=== PATIENT | male | born 1950 | race Hispanic/Latino ===

== ENCOUNTER 2018-05-09 21:24 | Emergency (ER) | payer OTHER ==
[2018-05-09] MEDS ORDERED: NA CHLORIDE 0.9% 1,000 ML ONE (23:11)
[2018-05-09 23:29] LABS: Absolute Lymphocytes (CBC) 2.9 K/uL (0.7-4.9); Absolute Monocytes 2.1 K/uL (0.1-1.3); Absolute Neutrophil 13.5 K/uL (1.8-8.0); Basophils % 0.7 % (0-1.3); Eosinophils % 0.4 % (0-4.4); Hematocrit 34.6 % (39.6-49.0); Lymphocytes % 15.6 % (15.3-44.8); MPV 9.8 fL (7.6-11.3); Monocytes % 11.3 % (3.3-12.3); RBC Red Blood Cell Count 3.75 M/uL (4.33-5.43)
[2018-05-09 23:35] LABS: BUN Blood Urea Nitrogen 44 mg/dL (7-18); Bicarbonate 28 mmol/L (21-32); Glucose Level 348 mg/dL (74-106); Potassium 3.8 mmol/L (3.5-5.1); Sodium Level 135 mmol/L (136-145)
--- NOTE | 2018-05-10 00:50 | EDPHYS ---
Physician Documentation [facility] Name: Jorden Virk Age: 67 yrs Sex: Male : 1950 Arrival Date: 05/09/2018 Time: 21:47 Bed 15 Private MD: Mando Franklin ED Physician Fly Delgado HPI: 05/10 00:08 This 67 yrs old Male presents to ER via Ambulatory with complaints of Blood rn Pressure Problem, High Blood Sugar. 00:08 The patient or guardian reports hyperglycemia. Onset: The symptoms/episode rn began/occurred today. Associated signs and symptoms: Pertinent negatives:. Current symptoms: In the emergency department the patient's symptoms have improved. The patient has experienced similar episodes in the past. Reports seen by pcp today, given shots for "flu", reports 2 weeks of cough and generalized weakness, told one of the shots might cause high blood sugar, machine read high today, so came in for evaluation, reports blood sugar now coming down, takes insulin, and feels a little better. . Historical: - Allergies: 05/09 21:51 No Known Allergies; lp1 - PMHx: 21:51 Hypertension; Diabetes - NIDDM; lp1 - PSHx: 21:51 None; lp1 - Immunization history:: Adult Immunizations up to date. - Social history:: Smoking status: Patient/guardian denies using tobacco. - Ebola Screening: : No symptoms or risks identified at this time. - Family history:: not pertinent. - Hospitalizations: : No recent hospitalization is reported. ROS: 05/10 00:08 Constitutional: Negative for fever, chills, and weight loss, Eyes: Negative for injury, rn pain, redness, and discharge, Neck: Negative for injury, pain, and swelling, Cardiovascular: Negative for chest pain, palpitations, and edema, Respiratory: + cough Abdomen/GI: Negative for abdominal pain, nausea, vomiting, diarrhea, and constipation, MS/Extremity: Negative for injury and deformity, Skin: Negative for injury, rash, and discoloration, Neuro: + generalized weakness Exam: 00:08 Constitutional: This is a well developed, well nourished patient who is awake, alert, rn and in no acute distress. Head/Face: Normocephalic, atraumatic. Eyes: Pupils equal round and reactive to light, extra-ocular motions intact. Lids and lashes normal. Conjunctiva and sclera are non-icteric and not injected. Cornea within normal limits. Periorbital areas with no swelling, redness, or edema. ENT: dry MM, no stridor Cardiovascular: Regular rate and rhythm with a normal S1 and S2. No pulse deficits. Respiratory: Lungs have equal breath sounds bilaterally, clear to auscultation. No increased work of breathing, no retractions or nasal flaring. Abdomen/GI: soft, non-tender Skin: Warm, dry MS/ Extremity: Pulses equal, no cyanosis. Neurovascular intact. Full, normal range of motion. Equal circumference. Neuro: Awake and alert, GCS 15, oriented to person, place, time, and situation. Cranial nerves II-XII grossly intact. Motor strength 5/5 in all extremities. Sensory grossly intact. Cerebellar exam normal. Vital Signs: 05/09 21:50 BP 142 / 80; Pulse 96; Resp 18; Temp 98.7(O); Pulse Ox 98% on R/A; Weight 82.55 kg; lp1 Height 5 ft. 6 in. (167.64 cm); Pain 0/10; 23:29 BP 144 / 72; Pulse 81; Resp 15; Pulse Ox 99% on R/A; ao 21:50 Body Mass Index 29.38 (82.55 kg, 167.64 cm) lp1 MDM: 22:51 Patient medically screened. rn 05/10 00:46 Differential diagnosis: hyperglycemia. Data reviewed: vital signs, nurses notes, nitriles lab technician test result(s), radiologic studies, plain films, and as a result, I will discharge patient. Counseling: I had a detailed discussion with the patient and/or guardian regarding: the historical points, exam findings, and any diagnostic results supporting the discharge/admit diagnosis, lab results, radiology results, the need for outpatient follow up, to return to the emergency department if symptoms worsen or persist or if there are any questions or concerns that arise at home. Response to treatment: the patient's symptoms have markedly improved after treatment, and as a result, I will discharge patient. Special discussion: I discussed with the patient/guardian in detail that at this point there is no indication for admission to the hospital. It is understood, however, that if the symptoms persist or worsen the patient needs to return immediately for re-evaluation. ED course: Clear CXR, + hyperglycemia with dehydration, better after fluids, on insulin, neg ketones, will dc home as expected hyperglycemia after likely steroid shot, recommend pcp f/u. . 05/09 22:55 Order name: CBC with Diff; Complete Time: 23:43 rn 05/09 22:55 Order name: Basic Metabolic Panel; Complete Time: 23:55 rn 05/09 22:55 Order name: Ketone, Serum; Complete Time: 23:55 rn 05/09 23:43 Order name: XRAY Chest Pa And Lat (2 Views) rn 05/09 23:56 Order name: Flu; Complete Time: 00:58 rn 05/09 22:55 Order name: EKG; Complete Time: 22:56 rn 05/09 22:55 Order name: EKG - Nurse/Tech; Complete Time: 22:59 rn 05/09 22:55 Order name: IV Start; Complete Time: 23:13 rn 05/09 22:55 Order name: Glucose Level; Complete Time: 22:59 rn Administered Medications: 05/09 23:13 Drug: NS 0.9% 1000 ml Route: IV; Rate: 1000 ml; Site: right antecubital; ao Point of Care Testing: Blood Glucose: 22:49 Blood Glucose: 393 mg/dL; oe Ranges: Critical Glucose Levels:Adult <50 mg/dl or >400 mg/dl <40 mg/dl or >180 mg/dl Disposition: 05/10/18 00:47 Discharged to Home. Impression: Hyperglycemia, unspecified, Dehydration. - Condition is Stable. - Discharge Instructions: Dehydration, Adult, Hyperglycemia. - Medication Reconciliation Form, Thank You Letter, Antibiotic Education, Prescription Opioid Use form. - Follow up: Private Physician; When: 2 - 3 days; Reason: Recheck today's complaints, Re-evaluation by your physician. - Problem is new. - Symptoms have improved. Signatures: Dispatcher [employer] EDMS Fly Delgado MD MD rn Pena, Laura, RN RN lp1 Raheel Treadwell RN RN ao Corrections: (The following items were deleted from the chart) 05/10 01:14 00:47 05/10/2018 00:47 Discharged to Home. Impression: Hyperglycemia, unspecified; ao Dehydration. Condition is Stable. Forms are Medication Reconciliation Form, Thank You Letter, Antibiotic Education, Prescription Opioid Use. Follow up: Private Physician; When: 2 - 3 days; Reason: Recheck today's complaints, Re-evaluation by your physician. Problem is new. Symptoms have improved. rn
--- NOTE | 2018-05-10 00:50 | ER ---
Nurse's Notes [facility] Name: Jorden Virk Age: 67 yrs Sex: Male : 1950 Arrival Date: 05/09/2018 Time: 21:47 Bed 15 Private MD: Mando Franklin Diagnosis: Hyperglycemia, unspecified;Dehydration Presentation: 05/09 21:48 Presenting complaint: Patient states: States concerned about his blood pressure and lp1 blood sugar; Received 2 injections today by PCP for cold symptoms and told that they may make his blood pressure and blood sugar high; states checking his sugar about 1700 and machine read "high"; Symptoms have resolved, patient still concerned about blood sugar. Transition of care: patient was not received from another setting of care. Onset of symptoms was May 09, 2018 at 17:00. Risk Assessment: Do you want to hurt yourself or someone else? Patient reports no desire to harm self or others. Initial Sepsis Screen: Does the patient meet any 2 criteria? No. Patient's initial sepsis screen is negative. Does the patient have a suspected source of infection? No. Patient's initial sepsis screen is negative. Care prior to arrival: None. 21:48 Method Of Arrival: Ambulatory lp1 21:48 Acuity: KATELIN 3 lp1 Historical: - Allergies: 21:51 No Known Allergies; lp1 - PMHx: 21:51 Hypertension; Diabetes - NIDDM; lp1 - PSHx: 21:51 None; lp1 - Immunization history:: Adult Immunizations up to date. - Social history:: Smoking status: Patient/guardian denies using tobacco. - Ebola Screening: : No symptoms or risks identified at this time. - Family history:: not pertinent. - Hospitalizations: : No recent hospitalization is reported. Screenin:51 Abuse screen: Denies threats or abuse. Denies injuries from another. Nutritional lp1 screening: No deficits noted. Tuberculosis screening: No symptoms or risk factors identified. Fall Risk None identified. Assessment: 22:14 General: Appears in no apparent distress. comfortable, Behavior is calm, cooperative, ao appropriate for age. Pain: Denies pain. Neuro: Level of Consciousness is awake, alert, obeys commands, Oriented to person, place, time, situation, Moves all extremities. Full function Speech is normal, Facial symmetry appears normal, Pupils are PERRLA. Cardiovascular: Capillary refill < 3 seconds Pulses are all present. Respiratory: Airway is patent Respiratory effort is even, unlabored, Respiratory pattern is regular, symmetrical, Breath sounds are clear bilaterally. GI: Abdomen is obese. : No deficits noted. No signs and/or symptoms were reported regarding the genitourinary system. EENT: No deficits noted. No signs and/or symptoms were reported regarding the EENT system. Derm: Skin is intact, Skin is pink, warm \\T\\ dry. normal, Skin temperature is warm. Musculoskeletal: Circulation, motion, and sensation intact. Range of motion: intact in all extremities. 23:29 Reassessment: Patient appears in no apparent distress at this time. Patient and/or ao family updated on plan of care and expected duration. Pain level reassessed. Patient is alert, oriented x 3, equal unlabored respirations, skin warm/dry/pink. Given Toradol and Flexeril. 05/10 00:41 Reassessment: Patient appears in no apparent distress at this time. Patient and/or ao family updated on plan of care and expected duration. Pain level reassessed. Patient is alert, oriented x 3, equal unlabored respirations, skin warm/dry/pink. Waiting on dispo orders. Vital Signs: 05/09 21:50 BP 142 / 80; Pulse 96; Resp 18; Temp 98.7(O); Pulse Ox 98% on R/A; Weight 82.55 kg; lp1 Height 5 ft. 6 in. (167.64 cm); Pain 0/10; 23:29 BP 144 / 72; Pulse 81; Resp 15; Pulse Ox 99% on R/A; ao 21:50 Body Mass Index 29.38 (82.55 kg, 167.64 cm) lp1 ED Course: 21:47 Patient arrived in ED. es 21:48 Alfredo Cole MD is Private Physician. es 21:49 Mando Franklin MD is Private Physician. es 21:50 Triage completed. lp1 21:51 Arm band placed on left wrist. lp1 22:14 Raheel Treadwell, RN is Primary Nurse. ao 22:15 Patient has correct armband on for positive identification. induction heating equipment setter on. Pulse ao ox on. NIBP on. 22:51 Fly Delgado MD is Attending Physician. rn 23:14 Inserted saline lock: 20 gauge in right antecubital area, using aseptic technique. ao Blood collected. 05/10 00:12 Patient moved to radiology via wheelchair. kw 00:12 X-ray completed. Patient tolerated procedure well. kw 00:12 Patient moved back from radiology. kw 00:39 XRAY Chest Pa And Lat (2 Views) In Process Unspecified. EDMS 01:13 No provider procedures requiring assistance completed. IV discontinued, intact, ao bleeding controlled, No redness/swelling at site. Pressure dressing applied. Administered Medications: 05/09 23:13 Drug: NS 0.9% 1000 ml Route: IV; Rate: 1000 ml; Site: right antecubital; ao Point of Care Testing: Blood Glucose: 22:49 Blood Glucose: 393 mg/dL; oe Ranges: Outcome: 05/10 00:47 Discharge ordered by . rn 01:14 Discharged to home ambulatory. ao 01:14 Condition: good 01:14 Discharge instructions given to patient, Instructed on discharge instructions, follow up and referral plans. the need for admit, Demonstrated understanding of instructions, follow-up care, medications. 01:14 Patient left the ED. ao Signatures: Dispatcher [employer] EDMS Sade Haynes Roman, MD MD rn Whitley, Kimberlee kw Pena, Laura, RN RN lp1 Raheel Treadwell RN RN ao Deandre Jeff oe
[2018-05-10 02:58] VITALS: TEMP 98.7
[2018-05-10 02:59] VITALS: BP 144/72; O2SAT 99
--- NOTE | 2018-05-10 07:47 | EKG ---
Test Date: 2018-05-09 Test Time: 22:24:18 Gun Fertilizer: GINA MEASUREMENT RESULTS: Intervals: Rate: 84 WI: 156 QRSD: 90 QT: 362 QTc: 427 Harper: P: 28 WI: 156 QRS: 4 T: 35 INTERPRETIVE STATEMENTS: Normal sinus rhythm Normal ECG Compared to ECG 08/06/2007 06:50:34 Sinus bradycardia no longer present Electronically Signed On 05-10-18 07:45:51 DIESEL ROLLER OPERATOR by Mehdi Miller
--- NOTE | 2018-05-10 13:03 | RAD REPORT ---
EXAM DESCRIPTION: RAD - Chest Pa And Lat (2 Views) - 05/10/2018 12:32 am CLINICAL HISTORY: 67 years Male, COUGH COMPARISON: None. FINDINGS: No lung consolidation. No pleural effusion. No pneumothorax. Cardiac and mediastinal silhouette is unremarkable. No acute osseous abnormality. IMPRESSION: No acute cardiopulmonary disease. Electronically signed by Nicola Gilbert DO 05/10/2018 12:34 AM EXECUTOR OF ESTATE Due to temporary technical issues with the PACS/Fluency reporting system, reports are being signed by the in house radiologist as a courtesy to ensure prompt reporting. The interpreting radiologist is f ully responsible for the content of the report.
== END 2018-05-10 01:14 | disposition home or self-care (01) ==
LOC: ER 21:24
DX: E11.65 Type 2 diabetes mellitus with hyperglycemia (principal); E86.0 Dehydration; I10 Essential (primary) hypertension
CPT/HCPCS: 36415; 71046; 80048; 82010; 82962; 85025; 87804; 93005; 99284; J7030

== ENCOUNTER 2020-12-12 12:35 | Emergency (ER) | payer OTHER ==
--- NOTE | 2020-12-12 13:18 | RAD REPORT ---
EXAM DESCRIPTION: CT - Head Brain Wo Cont - 12/12/2020 1:08 pm CLINICAL HISTORY: high blood pressure COMPARISON: No comparisons TECHNIQUE: All CT scans are performed using dose optimization technique as appropriate and may inclu de automated exposure control or mA/KV adjustment according to patient size. FINDINGS: No intracranial hemorrhage, hydrocephalus or extra-axial fluid collection.No areas of brai n edema or evidence of midline shift. The paranasal sinuses and mastoids are clear. The calvarium is intact. IMPRESSION: No acute intracranial abnormality.
[2020-12-12 14:05] LABS: Absolute Lymphocytes (CBC) 2.8 K/uL (0.7-4.9); Basophils % 1.1 % (0-1.3); RBC Red Blood Cell Count 3.92 M/uL (4.33-5.43)
[2020-12-12 14:11] LABS: Protime INR 1.03
--- NOTE | 2020-12-12 14:19 | RAD REPORT ---
EXAM DESCRIPTION: RAD - Chest Single View - 12/12/2020 2:13 pm CLINICAL HISTORY: blood pressure COMPARISON: Chest Pa And Lat (2 Views) dated 08/17/2019; Chest Pa And Lat (2 Views) dated 05/10/2018; CHEST SINGLE VIEW dated 08/05/2007 FINDINGS: Lines: None. Lungs: No evidence of edema or pneumonia. Pleural: No significant pleural effusions or pneumothorax. Cardiac: The heart size is within normal limits. Bones: No acute fractures. Other: IMPRESSION: No acute cardiopulmonary disease.
[2020-12-12 14:26] LABS: ALT/SGPT 23 U/L (12-78); AST/SGOT 18 U/L (15-37); Albumin 3.4 g/dL (3.4-5.0); Alkaline Phosphatase 86 U/L (45-117); BUN Blood Urea Nitrogen 39 mg/dL (7-18); Bicarbonate 24 mmol/L (21-32); Bilirubin Direct < 0.1 mg/dL (0-0.2); Bilirubin Total 0.4 mg/dL (0.2-1.0); Glucose Level 350 mg/dL (74-106); NT PRO-BNP 310 pg/mL (<125); Potassium 4.3 mmol/L (3.5-5.1); Protein, Total 7.6 g/dL (6.4-8.2); Sodium Level 140 mmol/L (136-145); Troponin (Emerg Dept Use Only) < 0.02 ng/mL (0.0-0.045)
--- NOTE | 2020-12-12 17:58 | ER ---
Nurse's Notes [facility] Name: Jorden Virk Age: 70 yrs Sex: Male : 1950 Arrival Date: 12/12/2020 Time: 12:39 Bed 23 Private MD: Diagnosis: Essential (primary) hypertension;Hyperglycemia, unspecified;Headache Presentation: 12/12 12:47 Chief complaint: Patient states: when he took his blood pressure this morning the top ap3 number was over 200. he took his bp medications and the top number went down to 180, but upon recheck it went back over 200. patient states he has a headache and numbness on his left arm. All this started when he woke up this morning. Last known normal was last night before bed. Coronavirus screen: At this time, the client does not indicate any symptoms associated with coronavirus-19. Ebola Screen: No symptoms or risks identified at this time. Initial Sepsis Screen: Does the patient meet any 2 criteria? No. Patient's initial sepsis screen is negative. Does the patient have a suspected source of infection? No. Patient's initial sepsis screen is negative. Risk Assessment: Do you want to hurt yourself or someone else? Patient reports no desire to harm self or others. Onset of symptoms was December 12, 2020. 12:47 Method Of Arrival: Ambulatory ap3 12:47 Acuity: KATELIN 2 ap3 Triage Assessment: 12:53 General: Appears in no apparent distress. comfortable, Behavior is calm, cooperative, ap3 appropriate for age. Pain: Denies pain. Neuro: Level of Consciousness is awake, alert, obeys commands, Oriented to person, place, time, situation, Appropriate for age Gait is steady, Speech is normal, Facial symmetry appears normal. Cardiovascular: No deficits noted. Respiratory: Airway is patent Respiratory effort is even, unlabored, Respiratory pattern is regular, symmetrical. Historical: - Allergies: 12:51 No Known Allergies; ap3 - Home Meds: 12:51 hydrochlorothiazide 25 mg Oral tab 1 tab once daily [Active]; losartan 100 mg oral tab ap3 1 tab once daily [Active]; - PMHx: 12:51 Hypertension; Diabetes - NIDDM; ap3 - PSHx: 12:51 None; ap3 - Immunization history:: Client reports receiving the Curtis \T\ Curtis single-dose vaccine. Date received May 2020. - Social history:: Smoking status: Patient denies any tobacco usage or history of. Patient/guardian denies using alcohol, street drugs. Screenin:52 Abuse screen: Denies threats or abuse. Nutritional screening: No deficits noted. ap3 Tuberculosis screening: No symptoms or risk factors identified. 14:00 Fall Risk None identified. aj2 Assessment: 14:00 General: Appears in no apparent distress. comfortable, obese, Behavior is calm, aj2 cooperative. Pain: Denies pain. Cardiovascular: No deficits noted. Rhythm is sinus bradycardia. 14:00 Respiratory: Airway is patent. aj2 16:25 Reassessment: Patient appears in no apparent distress at this time. Patient and/or ss family updated on plan of care and expected duration. Pain level reassessed. Patient is alert, oriented x 3, equal unlabored respirations, skin warm/dry/pink. Patient denies pain at this time. Vital Signs: 12:47 BP 187 / 75; Pulse 58; Resp 17; Temp 98.1; Pulse Ox 100% on R/A; Weight 79.38 kg; ap3 Height 5 ft. 6 in. (167.64 cm); Pain 0/10; 14:00 BP 173 / 74; Pulse 56; Resp 18; Temp 97.9; Pulse Ox 100% on R/A; aj2 16:25 BP 175 / 76; Pulse 52; Resp 18; Temp 97.9; Pulse Ox 100% ; ss 12:47 Body Mass Index 28.25 (79.38 kg, 167.64 cm) ap3 Vitals: 16:25 Cardiac Rhythm Assessment Sinus shante. ss ED Course: 12:39 Patient arrived in ED. ds1 12:51 Triage completed. ap3 13:00 Corey Alcantara is Primary Nurse. aj2 13:07 Tom Campos MD is Attending Physician. kdr 13:08 Head Brain Wo Cont CT In Process Unspecified. EDMS 13:56 Basic Metabolic Panel Sent. dh4 13:57 Basic Metabolic Panel Sent. dh4 13:57 CBC with Diff Sent. dh4 13:57 Magnesium Sent. dh4 13:57 LFT's Sent. dh4 13:57 NT PRO-BNP Sent. dh4 13:57 PT-INR Sent. dh4 13:57 Troponin (emerg Dept Use Only) Sent. dh4 14:00 No apparent distress. Resting quietly. aj2 14:00 No provider procedures requiring assistance completed. Inserted saline lock: 20 gauge aj2 in right antecubital area, using aseptic technique. 14:00 Patient has correct armband on for positive identification. aj2 14:13 XRAY Chest (1 view) In Process Unspecified. EDMS 16:25 No apparent distress. Resting quietly. ss 16:25 IV is patent, is intact. ss 18:44 IV discontinued, intact, bleeding controlled, No redness/swelling at site. Pressure ap3 dressing applied. 18:44 Arm band placed on. ap3 Administered Medications: No medications were administered Outcome: 17:58 Discharge ordered by . kdr 18:44 Discharged to home ambulatory, with family. ap3 18:44 Condition: good 18:44 Discharge instructions given to patient, Instructed on discharge instructions, follow up and referral plans. Demonstrated understanding of instructions, follow-up care. 18:44 Patient left the ED. ap3 Signatures: Dispatcher [employer] EDDE Tom Campos MD MD [facility] Maddy De La Rosa ds1 Pastora Marie RN RN Esther Pena RN RN ap3 Tha Hurley [facility] Corey Alcantara [facility]
--- NOTE | 2020-12-12 17:59 | EDPHYS ---
Physician Documentation [facility] Name: Jorden Virk Age: 70 yrs Sex: Male : 1950 Arrival Date: 12/12/2020 Time: 12:39 Bed 23 Private MD: ED Physician Tom Campos HPI: 12/12 20:19 This 70 yrs old Male presents to ER via Ambulatory with complaints of High kdr Blood Pressure. 20:19 The patient has elevated blood pressure and discovered this at home, with a home kdr device. Onset: The symptoms/episode began/occurred this morning. Modifying factors: The symptoms are aggravated by Nothing, The symptoms are alleviated by Patient took his blood pressure medications this morning and had some transient relief but then the pressure went back up to a systolic of greater than 200. Associated signs and symptoms: Pertinent positives: Patient has slight headache and left arm numbness that was very light. Severity of symptoms: At its worst the blood pressure was severe, 200 mm Hg. The patient has not experienced similar symptoms in the past. The patient has not recently seen a physician. Historical: - Allergies: 12:51 No Known Allergies; ap3 - Home Meds: 12:51 hydrochlorothiazide 25 mg Oral tab 1 tab once daily [Active]; losartan 100 mg oral tab ap3 1 tab once daily [Active]; - PMHx: 12:51 Hypertension; Diabetes - NIDDM; ap3 - PSHx: 12:51 None; ap3 - Immunization history:: Client reports receiving the Curtis \T\ Curtis single-dose vaccine. Date received May 2020. - Social history:: Smoking status: Patient denies any tobacco usage or history of. Patient/guardian denies using alcohol, street drugs. ROS: 20:19 Constitutional: Negative for fever, chills, and weight loss, Eyes: Negative for injury, kdr pain, redness, and discharge, ENT: Negative for injury, pain, and discharge, Neck: Negative for injury, pain, and swelling, Cardiovascular: Negative for chest pain, palpitations, and edema, Respiratory: Negative for shortness of breath, cough, wheezing, and pleuritic chest pain, Abdomen/GI: Negative for abdominal pain, nausea, vomiting, diarrhea, and constipation, Back: Negative for injury and pain, : Negative for injury, bleeding, discharge, and swelling, MS/Extremity: Negative for injury and deformity, Skin: Negative for injury, rash, and discoloration, Psych: Negative for depression, anxiety, suicide ideation, homicidal ideation, and hallucinations, Allergy/Immunology: Negative for hives, rash, and allergies, Endocrine: Negative for neck swelling, polydipsia, polyuria, polyphagia, and marked weight changes, Hematologic/Lymphatic: Negative for swollen nodes, abnormal bleeding, and unusual bruising. 20:19 Neuro: Positive for Headache and slight numbness to the left upper extremity. Exam: 20:19 Constitutional: This is a well developed, well nourished patient who is awake, alert, kdr and in no acute distress. Head/Face: Normocephalic, atraumatic. Eyes: Pupils equal round and reactive to light, extra-ocular motions intact. Lids and lashes normal. Conjunctiva and sclera are non-icteric and not injected. Cornea within normal limits. Periorbital areas with no swelling, redness, or edema. Neck: Trachea midline, no thyromegaly or masses palpated, and no cervical lymphadenopathy. Supple, full range of motion without nuchal rigidity, or vertebral point tenderness. No Meningismus. Chest/axilla: Normal chest wall appearance and motion. Nontender with no deformity. No lesions are appreciated. Cardiovascular: Regular rate and rhythm with a normal S1 and S2. No gallops, murmurs, or rubs. Normal PMI, no JVD. No pulse deficits. Respiratory: Lungs have equal breath sounds bilaterally, clear to auscultation and percussion. No rales, rhonchi or wheezes noted. No increased work of breathing, no retractions or nasal flaring. Abdomen/GI: Soft, non-tender, with normal bowel sounds. No distension or tympany. No guarding or rebound. No evidence of tenderness throughout. Back: No spinal tenderness. No costovertebral tenderness. Full range of motion. Skin: Warm, dry with normal turgor. Normal color with no rashes, no lesions, and no evidence of cellulitis. MS/ Extremity: Pulses equal, no cyanosis. Neurovascular intact. Full, normal range of motion. Neuro: Awake and alert, GCS 15, oriented to person, place, time, and situation. Cranial nerves II-XII grossly intact. Motor strength 5/5 in all extremities. Sensory grossly intact. Cerebellar exam normal. Normal gait. Psych: Awake, alert, with orientation to person, place and time. Behavior, mood, and affect are within normal limits. Vital Signs: 12:47 BP 187 / 75; Pulse 58; Resp 17; Temp 98.1; Pulse Ox 100% on R/A; Weight 79.38 kg; ap3 Height 5 ft. 6 in. (167.64 cm); Pain 0/10; 14:00 BP 173 / 74; Pulse 56; Resp 18; Temp 97.9; Pulse Ox 100% on R/A; aj2 16:25 BP 175 / 76; Pulse 52; Resp 18; Temp 97.9; Pulse Ox 100% ; ss 12:47 Body Mass Index 28.25 (79.38 kg, 167.64 cm) ap3 MDM: 17:58 Patient medically screened. kdr 20:21 Data reviewed: vital signs, nurses notes, lab test result(s), radiologic studies. kdr Counseling: I had a detailed discussion with the patient and/or guardian regarding: the historical points, exam findings, and any diagnostic results supporting the discharge/admit diagnosis, lab results, radiology results, the need for outpatient follow up. 20:21 ED course: Patient tolerated the interventions well was happy with the care provided kdr and the plan for discharge and follow-up.. 12/12 12:58 Order name: Basic Metabolic Panel ap3 12/12 12:58 Order name: CBC with Diff; Complete Time: 15:19 ap3 12/12 12:58 Order name: LFT's; Complete Time: 15:19 ap3 12/12 12:58 Order name: Magnesium; Complete Time: 15:19 ap3 12/12 12:58 Order name: NT PRO-BNP; Complete Time: 15:19 ap3 12/12 12:58 Order name: PT-INR; Complete Time: 15:19 ap3 12/12 12:58 Order name: Troponin (emerg Dept Use Only); Complete Time: 15:19 ap3 12/12 12:58 Order name: XRAY Chest (1 view); Complete Time: 15:19 ap3 12/12 12:58 Order name: EKG; Complete Time: 12:58 ap3 12/12 12:58 Order name: Cardiac monitoring; Complete Time: 13:53 ap3 12/12 12:58 Order name: EKG - Nurse/Tech; Complete Time: 13:53 ap3 12/12 12:58 Order name: Basic Metabolic Panel; Complete Time: 15:19 EDMS 12/12 12:59 Order name: Head Brain Wo Cont CT; Complete Time: 13:44 ap3 12/12 12:58 Order name: IV Saline Lock; Complete Time: 13:53 ap3 12/12 12:58 Order name: Labs collected and sent; Complete Time: 13:53 ap3 12/12 12:58 Order name: O2 Per Protocol; Complete Time: 13:57 ap3 12/12 12:58 Order name: O2 Sat Monitoring; Complete Time: 13:57 ap3 Administered Medications: No medications were administered Disposition Summary: 12/12/20 17:58 Discharge Ordered Location: Home kdr Problem: an acute exacerbation kdr Symptoms: have improved kdr Condition: Stable kdr Diagnosis - Essential (primary) hypertension kdr - Hyperglycemia, unspecified kdr - Headache kdr Followup: kdr - With: Private Physician - When: 2 - 3 days - Reason: If symptoms return, Further diagnostic work-up, Recheck today's complaints, Continuance of care, Re-evaluation by your physician Discharge Instructions: - Discharge Summary Sheet kdr - General Headache Without Cause kdr - Hypertension, Adult, [id number] kdr - Blood Glucose Monitoring, Adult kdr - How to Take Your Blood Pressure, Algr-sa-Bdva kdr - Hyperglycemia, Srdg-[id number]-Lthd kdr Forms: - Medication Reconciliation Form kdr - Thank You Letter kdr Signatures: Dispatcher [employer] EDMS Tom Campos MD MD kdr Esther Pena RN RN ap3 Corrections: (The following items were deleted from the chart) 13:10 12:58 Head Angio+CT.RAD.BRZ ordered. EDMS EDMS
[2020-12-12 18:58] VITALS: O2SAT 100
[2020-12-12 19:00] VITALS: TEMP 97.9
[2020-12-12 19:01] VITALS: BP 175/76
== END 2020-12-12 18:44 | disposition home or self-care (01) ==
LOC: ER 12:35
DX: I10 Essential (primary) hypertension (principal); E11.65 Type 2 diabetes mellitus with hyperglycemia
CPT/HCPCS: 36415; 70450; 71045; 80048; 80076; 83735; 83880; 84484; 85025; 85610; 93005; 99284

== ENCOUNTER 2021-10-07 15:44 | Inpatient (IN) | payer OTHER ==
[2021-10-07 16:37] LABS: Absolute Lymphocytes (CBC) 3.6 K/uL (0.7-4.9); Hematocrit 29.4 % (39.6-49.0); Lymphocytes % 15.6 % (15.3-44.8); MCV 93.2 fL (80-100); MPV 9.8 fL (7.6-11.3); RBC Red Blood Cell Count 3.16 M/uL (4.33-5.43)
[2021-10-07 16:57] LABS: Magnesium 2.4 mg/dL (1.8-2.4); Potassium 4.9 mmol/L (3.5-5.1); Troponin High Sensitivity 50.2 pg/mL (<58.9)
--- NOTE | 2021-10-07 17:48 | RAD REPORT ---
EXAM DESCRIPTION: RAD - Chest Single View - 10/07/2021 5:36 pm CLINICAL HISTORY: SOB COMPARISON: Chest Single View dated 12/12/2020; Chest Pa And Lat (2 Views) dated 08/17/2019; Chest Pa And Lat (2 Views) dated 05/10/2018; CHEST SINGLE VIEW dated 08/05/2007 FINDINGS: Lines: Cardiomegaly. Lungs: Increased prominence of the pulmonary interstitium. Pleural: Small left effusion is likely present. Cardiac: The heart size is within normal limits. Bones: No acute fractures. Other: IMPRESSION: Findings most consistent with interstitial edema though multifocal pneumonia could appea r similar. .
--- NOTE | 2021-10-07 18:24 | ER ---
Nurse's Notes [facility] Name: Jorden Virk Age: 71 yrs Sex: Male : 1950 Arrival Date: 10/07/2021 Time: 15:46 Bed 20 Private MD: Tara Smith Diagnosis: Pneumonia, unspecified organism;Sepsis, unspecified organism;Unspecified combined systolic (congestive) and diastolic (congestive) heart failure;Acute on chronic renal failure;Elevated white blood cell count Presentation: 10/07 15:56 Chief complaint: Patient states: Pt reports bilateral feet swelling x5 days with jh6 increasing SOB, chills and dry cough x2 days. Coronavirus screen: Vaccine status: Patient reports receiving the 2nd dose of the covid vaccine. Client denies travel out of the [place] in the last 14 days. chills, cough unrelated to allergies, difficulty breathing, fatigue. Ebola Screen: Patient negative for fever greater than or equal to 101.5 degrees Fahrenheit, and additional compatible Ebola Virus Disease symptoms Patient denies exposure to infectious person. Patient denies travel to an Ebola-affected area in the 21 days before illness onset. Initial Sepsis Screen: Does the patient meet any 2 criteria? No. Patient's initial sepsis screen is negative. Does the patient have a suspected source of infection? No. Patient's initial sepsis screen is negative. Risk Assessment: Do you want to hurt yourself or someone else? Patient reports no desire to harm self or others. Onset of symptoms was October 02, 2021. 15:56 Method Of Arrival: Ambulatory [facility] 15:56 Acuity: KATELIN 2 6 Triage Assessment: 16:04 General: Appears in no apparent distress. well groomed, Behavior is calm, cooperative. 6 Pain: Denies pain. Respiratory: Reports shortness of breath cough that is dry, Onset: The symptoms/episode began/occurred x2 days, worse today, the patient has moderate shortness of breath. Historical: - Allergies: 16:04 No Known Allergies; jh6 - PMHx: 16:04 Hypercholesterolemia; Hypertension; Diabetes mellitus; 6 - Immunization history:: Adult Immunizations up to date, Client reports receiving the 2nd dose of the Covid vaccine. - Social history:: Smoking status: Patient denies any tobacco usage or history of. Screenin:34 Abuse screen: Denies threats or abuse. Nutritional screening: No deficits noted. jd3 Tuberculosis screening: No symptoms or risk factors identified. Fall Risk Ambulatory Aid- None/Bed Rest/Nurse Assist (0 pts). Gait- Normal/Bed Rest/Wheelchair (0 pts) Mental Status- Oriented to own ability (0 pts). Total Redd Fall Scale indicates No Risk (0-24 pts). Assessment: 16:31 General: Appears in no apparent distress. comfortable, Behavior is calm, cooperative, jd3 appropriate for age. Pain: Denies pain. Neuro: Jimenez Agitation-Sedation Scale (RASS): 0 - Alert and Calm Level of Consciousness is awake, alert, obeys commands, Oriented to person, place, time, situation. Cardiovascular: Heart tones present Capillary refill < 3 seconds Patient's skin is warm and dry. Rhythm is regular. Respiratory: Reports shortness of breath on exertion Airway is patent Respiratory effort is even, unlabored, Respiratory pattern is regular, symmetrical, Breath sounds are clear bilaterally. the patient has mild shortness of breath Denies cough. GI: No signs and/or symptoms were reported involving the gastrointestinal system. : No signs and/or symptoms were reported regarding the genitourinary system. EENT: No signs and/or symptoms were reported regarding the EENT system. Derm: Skin is intact, Skin is dry, Skin is normal, Skin temperature is warm. Musculoskeletal: Circulation, motion, and sensation intact. Range of motion: intact in all extremities. 17:59 Reassessment: Patient appears in no apparent distress at this time. No changes from jd3 previously documented assessment. Patient and/or family updated on plan of care and expected duration. Pain level reassessed. Patient is alert, oriented x 3, equal unlabored respirations, skin warm/dry/pink. 19:20 General: Appears in no apparent distress. Behavior is cooperative. Neuro: Level of sm5 Consciousness is awake, alert, obeys commands, Oriented to person, place, time, situation. Cardiovascular: Capillary refill < 3 seconds Patient's skin is warm and dry. Respiratory: Airway is patent Trachea midline Respiratory effort is even, labored. Vital Signs: 15:56 BP 141 / 63; Pulse 65; Resp 22; Temp 99.3; Pulse Ox 90% ; Weight 88.45 kg; Height 5 ft. jh6 6 in. (167.64 cm); Pain 0/10; 16:34 BP 135 / 65; Pulse 67; Resp 21; Pulse Ox 96% on 2 lpm NC; jd3 18:00 BP 131 / 62; Pulse 65; Resp 20; Pulse Ox 95% on 2 lpm NC; jd3 21:58 BP 143 / 65; Pulse 75; Resp 27; Pulse Ox 94% on 2 lpm NC; sm5 15:56 Body Mass Index 31.47 (88.45 kg, 167.64 cm) [facility] ED Course: 15:46 Patient arrived in ED. mr 15:47 Tara Smith MD is Private Physician. mr 15:56 Lolly Dong FNP-C [facility]. kb 15:56 Bayron Manzano DO is Attending Physician. kb 16:02 Triage completed. [facility] 16:06 Arm band placed on right wrist. Patient placed in an exam room, on a stretcher, Patient [facility] Provider in triage to assess pt. 16:12 Zion Knott RN is Primary Nurse. jd3 16:21 Basic Metabolic Panel Sent. mb7 16:21 CBC with Diff Sent. mb7 16:22 Client placed on continuous cardiac and pulse oximetry monitoring. NIBP monitoring mb7 applied. monitoring coordinator on. Pulse ox on. 16:22 Magnesium Sent. mb7 16:22 NT PRO-BNP Sent. mb7 16:22 Troponin HS Sent. mb7 16:22 EKG done, by ED staff, reviewed by Lolly ELLIOTT. mb7 16:22 Inserted saline lock: 20 gauge in right antecubital area, using aseptic technique. mb7 Blood collected. 16:35 Patient has correct armband on for positive identification. Placed in gown. Bed in low jd3 position. Call light in reach. Side rails up X2. Adult w/ patient. 17:37 XRAY Chest (1 view) In Process Unspecified. EDMS 18:23 Ralf Oakes MD is Hospitalizing Provider. kb 18:40 First set of blood cultures drawn Drawn on Right Hand. jw7 18:55 Second set of blood cultures drawn Drawn on left hand. jw7 19:04 Blood Culture Adult (2) Sent. jw7 19:05 Lactate Sent. jw7 19:10 Primary Nurse role handed off by Zion Knott, JOSE mw2 20:08 Janey Sheriff, RN is Primary Nurse. [facility] 22:37 No provider procedures requiring assistance completed. Patient admitted, IV remains in [address] Administered Medications: 19:09 Drug: Rocephin (cefTRIAXone) 1 grams Route: IV; Rate: calculated rate; Site: right jd3 antecubital; 19:25 Follow up: Response: No adverse reaction; IV Status: Completed infusion; IV Intake: [id number] 19:09 Drug: Zithromax (azithromycin) 500 mg Route: IVPB; Infused Over: 1 hrs; Site: right jd3 antecubital; 20:10 Follow up: Response: No adverse reaction; IV Status: Completed infusion; IV Intake: sm5 250ml Medication: 16:34 VIS not applicable for this client. jd3 Intake: 19:25 IV: 50ml; Total: 50ml. 5 20:10 IV: 250ml; Total: 300ml. [facility] Outcome: 18:23 Decision to Hospitalize by Provider. kb 22:37 Admitted to Med/surg accompanied by tech, via stretcher, with oxygen, with chart, [facility] Report called to JOSE Fay 22:37 Condition: stable 22:37 Instructed on the need for admit. 22:39 Patient left the ED. [facility] Signatures: Dispatcher [employer] EDMS Lolly Dong, LEXI VELIZ-Deborah Kurtz Zion Knott RN RN jd3 [place], MyKena mw2 Lilli Gutierrez RN RN Deborah Morton Janey Flynn RN RN [facility] Rosalie Li [facility] Corrections: (The following items were deleted from the chart) 16:05 16:04 PMHx: Diabetes - NIDDM; Troy Troy 19:04 18:40 First set of blood cultures drawn by sarah martin 22:08 21:58 BP 143 / 65; Pulse 75bpm; Resp 27bpm; Pulse Ox 91% 2 lpm Nasal Cannula; [place] [id number]
--- NOTE | 2021-10-07 18:24 | EDPHYS ---
Physician Documentation [facility] Name: Jorden Virk Age: 71 yrs Sex: Male : 1950 Arrival Date: 10/07/2021 Time: 15:46 Bed 20 Private MD: Tara Smith ED Physician Bayron Manzano HPI: 10/07 21:59 This 71 yrs old Male presents to ER via Ambulatory with complaints of kb Shortness Of Breath, Feet Swelling, High Blood Sugar. 19:19 Patient reports bilateral lower extremity swelling for 5 days. Reports shortness of kb breath that has been increasingly getting worse. Shortness of breath started with exertion only and is now at rest as well.. 21:59 The patient has shortness of breath at rest. Onset: The symptoms/episode began/occurred kb 5 day(s) ago. Duration: The symptoms are continuous. The patient's shortness of breath is aggravated by exertion, is alleviated by nothing. Associated signs and symptoms: Pertinent positives: lower extremity edema. Severity of symptoms: At their worst the symptoms were moderate in the emergency department the symptoms are unchanged. The patient has not experienced similar symptoms in the past. The patient has not recently seen a physician. Historical: - Allergies: 16:04 No Known Allergies; jh6 - PMHx: 16:04 Hypercholesterolemia; Hypertension; Diabetes mellitus; jh6 - Immunization history:: Adult Immunizations up to date, Client reports receiving the 2nd dose of the Covid vaccine. - Social history:: Smoking status: Patient denies any tobacco usage or history of. ROS: 21:59 Constitutional: Negative for fever, chills, and weight loss. kb 21:59 Cardiovascular: Positive for edema, Negative for chest pain. 21:59 Respiratory: Positive for cough, dyspnea on exertion, shortness of breath, Negative for hemoptysis, orthopnea, pleurisy, sputum production, wheezing. 21:59 All other systems are negative. Exam: 21:59 Constitutional: This is a well developed, well nourished patient who is awake, alert, kb and in no acute distress. Head/Face: Normocephalic, atraumatic. ENT: Moist Mucous membranes Cardiovascular: Regular rate and rhythm with a normal S1 and S2. No gallops, murmurs, or rubs. No pulse deficits. Respiratory: Respirations even and unlabored. No increased work of breathing. Talking in full sentences Skin: Warm, dry with normal turgor. Normal color. MS/ Extremity: Pulses equal, no cyanosis. Neurovascular intact. Full, normal range of motion. Neuro: Awake and alert, GCS 15, oriented to person, place, time, and situation. Moves all extremities. Normal gait. Psych: Awake, alert, with orientation to person, place and time. Behavior, mood, and affect are within normal limits. 21:59 Cardiovascular: Edema: 1+ edema to level of left ankle and right ankle. 21:59 ECG was reviewed by the Attending Physician. Vital Signs: 15:56 BP 141 / 63; Pulse 65; Resp 22; Temp 99.3; Pulse Ox 90% ; Weight 88.45 kg; Height 5 ft. jh6 6 in. (167.64 cm); Pain 0/10; 16:34 BP 135 / 65; Pulse 67; Resp 21; Pulse Ox 96% on 2 lpm NC; jd3 18:00 BP 131 / 62; Pulse 65; Resp 20; Pulse Ox 95% on 2 lpm NC; jd3 21:58 BP 143 / 65; Pulse 75; Resp 27; Pulse Ox 94% on 2 lpm NC; sm5 15:56 Body Mass Index 31.47 (88.45 kg, 167.64 cm) 6 MDM: 15:56 Patient medically screened. kb 16:57 ED course: Severe sepsis identified after BMP resulted. . kb 18:28 Data reviewed: vital signs, nurses notes. Data interpreted: Pulse oximetry: on room air kb is 95 %. Interpretation: normal. Counseling: I had a detailed discussion with the patient and/or guardian regarding: the historical points, exam findings, and any diagnostic results supporting the discharge/admit diagnosis, lab results, radiology results, the need for further work-up and treatment in the hospital. Physician consultation: Rudolph ELLIOTT was contacted at 18:29, regarding admission, to the telemetry unit. and will see patient in ED, immediately. 10/07 15:57 Order name: Basic Metabolic Panel; Complete Time: 16:57 kb 10/07 15:57 Order name: CBC with Diff; Complete Time: 18:45 kb 10/07 15:57 Order name: Magnesium; Complete Time: 16:57 kb 10/07 15:57 Order name: NT PRO-BNP; Complete Time: 16:57 kb 10/07 15:57 Order name: Troponin HS; Complete Time: 16:57 kb 10/07 16:01 Order name: COVID-19 SARS RT PCR (Document "Date of Onset" if Symptomatic); Complete kb Time: 17:42 10/07 18:14 Order name: Blood Culture Adult (2) kb 10/07 18:14 Order name: Lactate; Complete Time: 19:19 kb 10/07 18:17 Order name: CMP; Complete Time: 19:16 kb 10/07 18:17 Order name: Protime (+inr); Complete Time: 19:04 kb 10/07 18:17 Order name: Ptt, Activated; Complete Time: 19:04 kb 10/07 18:22 Order name: Flu; Complete Time: 21:22 la1 10/07 18:43 Order name: Manual Differential; Complete Time: 18:45 EDMS 10/07 19:24 Order name: Urine Microscopic Only la10/07 15:57 Order name: XRAY Chest (1 view); Complete Time: 17:53 kb 10/07 15:57 Order name: EKG; Complete Time: 15:58 kb 10/07 15:57 Order name: Cardiac monitoring; Complete Time: 16:21 kb 10/07 15:57 Order name: EKG - Nurse/Tech; Complete Time: 16:21 kb 10/07 15:57 Order name: IV Saline Lock; Complete Time: 16:21 kb 10/07 15:57 Order name: Labs collected and sent; Complete Time: 16:21 kb 10/07 15:57 Order name: O2 Per Protocol; Complete Time: 16:21 kb 10/07 15:57 Order name: O2 Sat Monitoring; Complete Time: 16:21 kb 10/07 18:17 Order name: IV Saline Lock - Large Bore; Complete Time: 18:26 kb 10/07 19:24 Order name: Urine Dipstick-Ancillary (obtain specimen) la10/07 20:52 Order name: Glucose, Ancillary Testing; Complete Time: 20:56 EDMS EC:59 Rate is 68 beats/min. Rhythm is regular. QRS [place] is Normal. NC interval is normal at kb 144 msec. QRS interval is normal at 90 msec. QT interval is normal at 423 msec. Administered Medications: 19:09 Drug: Rocephin (cefTRIAXone) 1 grams Route: IV; Rate: calculated rate; Site: right jd3 antecubital; 19:25 Follow up: Response: No adverse reaction; IV Status: Completed infusion; IV Intake: [id number] 19:09 Drug: Zithromax (azithromycin) 500 mg Route: IVPB; Infused Over: 1 hrs; Site: right jd3 antecubital; 20:10 Follow up: Response: No adverse reaction; IV Status: Completed infusion; IV Intake: sm5 250ml Disposition: 10/08 09:48 Co-signature as Attending Physician, Bayron Manzano DO I was immediately available on-site ms3 in the Emergency Department for consultation in the care of the patient.. Disposition Summary: 10/07/21 18:23 Hospitalization Ordered Hospitalization Status: Inpatient Admission kb Provider: Ralf Oakes Location: Telemetry/MedSur (Inpatient) kb Condition: Stable kb Problem: new kb Symptoms: are unchanged kb Bed/Room Type: Standard Room Assignment: 202(10/07/21 21:50) Diagnosis - Pneumonia, unspecified organism kb - Sepsis, unspecified organism kb - Unspecified combined systolic (congestive) and diastolic (congestive) heart failure kb - Acute on chronic renal failure kb - Elevated white blood cell count kb Forms: - Medication Reconciliation Form kb - SBAR form kb Signatures: Dispatcher [employer] Lolly Perea, LEXI WEAVERP-Ckb Rudolph Rivas FNP-C FNP-Cla1 Keerthi Santiago RN RN cg Davies, Jonathon, RN RN jd3 Sims, Marcus, DO DO ms3 Lilli Gutierrez RN RN 6 Janey Sheriff RN sm5 Corrections: (The following items were deleted from the chart) 10/07 16:05 16:04 PMHx: Diabetes - NIDDM; aida Troy 21:50 18:23 kb cg
[2021-10-07] MEDS ORDERED: AZITHROMYCIN 500 MG INJ IVPB ONE (18:37)
[2021-10-07] MEDS ORDERED: NA CHLORIDE 0.9% 250 ML ONE (18:37)
[2021-10-07] MEDS ORDERED: CEFTRIAXONE 1000 MG/VIAL ONE (18:37)
[2021-10-07 18:42] LABS: Anisocytosis 2+; Blood Morphology Comment NOTED (NOT SEEN); Poikilocytosis 2+
[2021-10-07 18:43] LABS: Platelet Estimate ADEQ
[2021-10-07 18:59] LABS: Protime INR 1.2
[2021-10-07 19:15] LABS: Albumin 3.2 g/dL (3.4-5.0); Bilirubin Total 0.8 mg/dL (0.2-1.0); Potassium 5.3 mmol/L (3.5-5.1)
--- NOTE | 2021-10-07 20:03 | P.HP ---
Certification for Inpatient Patient admitted to: Inpatient With expected LOS: >2 Midnights Patient will require the following post-hospital care: None Practitioner: I am a practitioner with admitting privileges, knowledge of patient current condition, hospital course, and medical plan of care. Services: Services provided to patient in accordance with Admission requirements found in Title 42 Section 412.3 of the Code of Federal Regulations <Rudolph Rivas - Last Filed: 10/07/21 19:58> Patient History Date of Service: 10/07/21 Reason for admission: Sepsis, pneumonia History of Present Illness: 71-year-old male with history of diabetes mellitus type 2insulin-dependent, hypertension, hyperlipidemia, CKD presented to the emergency department for shortness of breath, chills, low-grade fever, lower extremity edema. He has been dealing with lower extremity edema over the course of the last month chills, dyspnea and low-grade fever started on Tuesday. He was evaluated in the emergency department his labs were significant for leukocytosis with a white blood cell count of 23.1 normocytic anemia acute worsening of CKD 3 with baseline GFR in the high 30s to 40 currently down to 22, elevated BNP 2081 his chest x-ray demonstrated findings consistent with interstitial edema though multifocal pneumonia could appear similar. He has SIRS criteria of tachypnea with a respiratory rate of 22, leukocytosis with a white blood cell count of 23.1 as well source of suspected infectionlikely multifocal pneumonia. Patient not hypotensive lactic acid 1.1 he does appear to be volume overloaded for this reason IV fluids were not given. Acute kidney injury may be related to sepsis versus CRS, recent initiation of losartan/hydrochlorothiazide may also be contributing. Will need to admit for further evaluation and management. - Past Medical/Surgical History -: Diabetes type 2insulin-dependent -: Hypertension -: Hyperlipidemia -: CKD 3 -: None Psychosocial/ Personal History: Patient lives at home with his , family - Family History Mother -: Kidney disease Father -: Heart disease - Social History Smoking Status: Never smoker Alcohol use: No CD- Drugs: No Caffeine use: Yes Place of Residence: Home <Rudolph Rivas - Last Filed: 10/07/21 19:58> Date of Service: 10/08/21 <Ralf Oakes - Last Filed: 10/08/21 17:36> Allergies No Known Allergies Allergy (Unverified 11/06/11 12:28) Review of Systems 10-point ROS is otherwise unremarkable General: Fever, Chills, Malaise Respiratory: Cough, Shortness of Breath, SOB with Excertion Cardiovascular: Edema <Rudolph Rivas - Last Filed: 10/07/21 19:58> Physical Examination - Physical Exam General: Alert, In no apparent distress, Oriented x3 HEENT: Atraumatic, PERRLA, Mucous membr. moist/pink, EOMI, Sclerae nonicteric Neck: Supple, 2+ carotid pulse no bruit, No LAD, Without JVD or thyroid abnormality Respiratory: Diminished, Crackles/rales Cardiovascular: Regular rate/rhythm, Normal S1 S2, Edema Capillary refill: <2 Seconds Gastrointestinal: Normal bowel sounds, No tenderness Musculoskeletal: No tenderness Integumentary: No rashes Neurological: Normal speech, Normal strength at 5/5 x4 extr, Normal tone, Normal affect - Studies Laboratory Data (last 24 hrs) 10/07/21 18:40: PT 13.3 H, INR 1.20, APTT 32.3 10/07/21 18:40: Sodium 138, Potassium 5.3 H, BUN 60 H, Creatinine 2.96 H, Glucose 165 H, Total Bilirubin 0.8, AST 14 L, ALT 41, Alkaline Phosphatase 102 10/07/21 16:20: WBC 23.1 H*, Hgb 9.8 L, Hct 29.4 L, Plt Count 261 10/07/21 16:20: Sodium 137, Potassium 4.9, BUN 58 H, Creatinine 3.02 H, Glucose 172 H, Magnesium 2.4 <Rudolph Rivas - Last Filed: 10/07/21 19:58> - Studies Laboratory Data (last 24 hrs) 10/07/21 18:40: PT 13.3 H, INR 1.20, APTT 32.3 10/07/21 18:40: Sodium 138, Potassium 5.3 H, BUN 60 H, Creatinine 2.96 H, Glucose 165 H, Total Bilirubin 0.8, AST 14 L, ALT 41, Alkaline Phosphatase 102 10/07/21 16:20: WBC 23.1 H*, Hgb 9.8 L, Hct 29.4 L, Plt Count 261 <Ralf Oakes - Last Filed: 10/08/21 17:36> Assessment and Plan - Plan Assessment: Sepsis secondary to multifocal pneumonia Suspected new onset CHFunknown EF NEGRO on CKD 3 Diabetes mellitus type 2insulin-dependent Hypertension Hyperlipidemia Plan: Sepsis secondary to multifocal pneumonia: Blood cultures obtained continue antibiotics Rocephin/Zithromax. Patient not hypotensive, lactate within normal limits. He does have worsening of his CKD but I feel this is more likely related to possibly CRS with new onset CHF or the initiation of losartan/hydrochlorothiazide recently. Incentive spirometry, supplemental oxygen as needed. Suspected new onset CHFunknown EF: Cardiology consulted, echocardiogram ordered we will continue gentle diuresis. NEGRO on CKD 3: Nephrology consulted many possible contributing factors including recent initiation of losartan/hydrochlorothiazide, possibly CRS. Diabetes mellitus type 2insulin-dependent: Patient takes Lantus 32 units daily, will start long-acting insulin at 15 units increase as necessary, also provide sliding scale. Hypertension: Hold losartan/hydrochlorothiazide continue carvedilol, amlodipine. Adjust as necessary. Hyperlipidemia: Continue atorvastatin. DVT PPX: Heparin Code status: Full Discharge Plan: Home Plan to discharge in: 72 Hours - Advance Directives Does patient have a Living Will: No Does patient have a Durable POA for Healthcare: No - Code Status/Comfort Care Code Status Assessed: Yes (Full code) Critical Care: No Time Spent Managing Pts Care (In Minutes): 70 <Rudolph Rivas - Last Filed: 10/07/21 19:58> Physician Review: Patient Assessed, Agree with Above Assessment and Plan Physician Review Additional Text: Please see my progress note from 10/08/2021 for an addendum in the diagnoses. <Ralf Oakes - Last Filed: 10/08/21 17:36>
[2021-10-07] MEDS ORDERED: ONDANSETRON 4 MG/2 ML VIAL IV PRN (20:27)
[2021-10-07] MEDS ORDERED: ATORVASTATIN 20 MG TAB ONE (20:50)
[2021-10-07] MEDS ORDERED: HEPARIN 5000 UNIT/ML 1 ML VIAL ONE (20:50)
[2021-10-07] MEDS: INSULIN -REGULAR HUMAN 50 UNIT/0.5 ML ML SQ SCH (20:52)
[2021-10-07] MEDS: HEPARIN 5000 UNIT/ML 1 ML VIAL SQ SCH (20:52)
[2021-10-07] MEDS: ATORVASTATIN 20 MG TAB PO SCH (20:52)
[2021-10-08 03:52] LABS: Absolute Lymphocytes (CBC) 3.2 K/uL (0.7-4.9); Hematocrit 27.2 % (39.6-49.0); Lymphocytes % 14.7 % (15.3-44.8); MCV 92.7 fL (80-100); MPV 9.8 fL (7.6-11.3); RBC Red Blood Cell Count 2.93 M/uL (4.33-5.43)
[2021-10-08] MEDS ORDERED: ACETAMINOPHEN 500 MG TAB PO PRN (04:01)
[2021-10-08 04:08] LABS: Albumin 2.9 g/dL (3.4-5.0); Bilirubin Total 0.7 mg/dL (0.2-1.0); Potassium 4.5 mmol/L (3.5-5.1); Protein, Total 7.4 g/dL (6.4-8.2); Thyroid Stimulating Hormone 0.858 uIU/mL (0.360-3.740)
[2021-10-08] MEDS ORDERED: ACETAMINOPHEN 500 MG TAB ONE (04:17)
[2021-10-08 04:34] LABS: Urine Bacteria 20-50 /HPF (<20); Urine RBC <5 /HPF (None Seen)
[2021-10-08] MEDS: carvediloL 25 MG TAB PO SCH ×2 (05:28→17:57)
[2021-10-08] MEDS: INSULIN -REGULAR HUMAN 50 UNIT/0.5 ML ML SQ SCH ×4 (07:30→20:38)
--- NOTE | 2021-10-08 08:42 | RAD REPORT ---
EXAM DESCRIPTION: US - Renal Ultrasound-Complete - 10/08/2021 6:07 am CLINICAL HISTORY: NEGRO Flank pain COMPARISON: ABD PELVIC VASCULAR SCAN dated 08/07/2007 FINDINGS: Both kidneys are normal in size, shape and echotexture. The right kidney measures 9.8 x 5.0 x 4.9 cm. No hydronephrosis, focal mass or perinephric fluid. Tin y echogenic foci in the right kidney could small stones. The left kidney measures 10.1 x 5.0 x 4.6 cm. No hydronephrosis, focal mass or perinephric fluid. The urinary bladder is incompletely distended without gross abnormality seen. IMPRESSION: Tiny echogenic foci in the right kidney could be tiny stones. No hydronephrosis or solid renal mass.
--- NOTE | 2021-10-08 08:48 | EKG ---
Test Date: 2021-10-07 Test Time: 16:09:38 Appeals Manager: MB MEASUREMENT RESULTS: Intervals: Rate: 68 WV: 144 QRSD: 90 QT: 398 QTc: 423 [place]: P: 41 WV: 144 QRS: 66 T: 42 INTERPRETIVE STATEMENTS: Normal sinus rhythm Normal ECG Compared to ECG 12/12/2020 13:50:20 Sinus bradycardia no longer present Left ventricular hypertrophy no longer present Electronically Signed On 10-08-21 08:46:56 CDT by Camilo Guerrero
[2021-10-08] MEDS: CEFTRIAXONE 1,000 MG in NA CHLORIDE 0.9% 50 ML IVPB SCH (09:00)
[2021-10-08] MEDS ORDERED: AMLODIPINE 10 MG TAB PO SCH ×2 (09:00→21:00)
[2021-10-08] MEDS: INSULIN GLARGINE 100 UNIT/ML SQ SCH (09:00)
[2021-10-08] MEDS ORDERED: CEFTRIAXONE 1000 MG/VIAL ONE (09:14)
[2021-10-08] MEDS ORDERED: NA CHLORIDE 0.9% 250 ML ONE (09:15)
[2021-10-08] MEDS: AZITHROMYCIN IV 500 MG in NA CHLORIDE 0.9% 250 ML IVPB SCH (09:40)
[2021-10-08] MEDS: HEPARIN 5000 UNIT/ML 1 ML VIAL SQ SCH ×2 (09:40→20:37)
[2021-10-08] MEDS: FUROSEMIDE 20 MG/ 2ML VIAL IV SCH ×2 (09:41→17:57)
--- NOTE | 2021-10-08 09:57 | P.CNS ---
Date of Consult: 10/08/21 Reason for Consult: NEGRO on CKD Requesting Physician: Rudolph Rivas Chief Complaint: Sepsis, pneumonia History of Present Illness: 71-year-old Turkmen speaking male with history of diabetes mellitus type 2insulin-dependent, hypertension on medication, hyperlipidemia, CKD Stage IIIb under the care of Dr. Rios, presented to the emergency department for acute shortness of breath that started Mon and associated with malaise, subjective fevers, cough and weakness. His labs on admission were notable for NEGRO, leukocytosis and CXR was abnormal. RN reports that pt was hypoxic this AM on 2L NC so he was bumped to a NRB with 9L which brought O2 into the low 90s range. Allergies No Known Allergies Allergy (Unverified 11/06/11 12:28) Home Medications: Amlodipine [Norvasc*] 1 tab PO DAILY 10/07/21 Atorvastatin Calcium 1 tab PO BEDTIME 10/07/21 Carvedilol [Coreg] 1 tab PO BID 10/07/21 Dulaglutide [Trulicity] 1.5 mg SQ DIRECTED 10/07/21 Insulin Glargine,Hum.rec.anlog [Lantus Solostar] 32 units SQ DAILY 10/07/21 Losartan/Hydrochlorothiazide [Losartan-Hctz 100-25 mg Tab] 1 tab PO DAILY 10/07/21 - Past Medical/Surgical History Diabetic: Yes -: Diabetes type 2insulin-dependent -: Hypertension -: Hyperlipidemia -: CKD 3 -: None Psychosocial/ Personal History: Patient lives at home with his , family - Family History Mother Medical History: Kidney disease Father Medical History: Heart disease - Social History Alcohol use: Yes CD- Drugs: No Caffeine use: Yes Place of Residence: Home Review of Systems General: Weakness, Malaise Respiratory: Cough, Shortness of Breath Cardiovascular: Light Headedness Physical Examination Temp Pulse Resp BP Pulse Ox 98.6 F 60 22 H 106/53 L 83 L 10/08/21 08:00 10/08/21 08:00 10/08/21 08:00 10/08/21 08:00 10/08/21 08:00 General: Alert, In no apparent distress HEENT: Atraumatic, Normocephalic, EOMI Neck: Supple, JVD distended Respiratory: Normal air movement Cardiovascular: No edema, Regular rate/rhythm Gastrointestinal: Soft and benign, Non-distended Musculoskeletal: No clubbing, No swelling, No contractures Integumentary: No rashes Neurological: Normal speech, Normal affect Laboratory Data (last 24 hrs) 10/07/21 18:40: PT 13.3 H, INR 1.20, APTT 32.3 10/07/21 18:40: Sodium 138, Potassium 5.3 H, BUN 60 H, Creatinine 2.96 H, Glucose 165 H, Total Bilirubin 0.8, AST 14 L, ALT 41, Alkaline Phosphatase 102 10/07/21 16:20: WBC 23.1 H*, Hgb 9.8 L, Hct 29.4 L, Plt Count 261 10/07/21 16:20: Sodium 137, Potassium 4.9, BUN 58 H, Creatinine 3.02 H, Glucose 172 H, Magnesium 2.4 Conclusions/Impression: 1. Stage II NEGRO 2. Underlying CKD Stage IIIb 3. Dyspnea unspecified 4. PNA 2nd to unspecified organism 5. Acute pulmonary edema 6. Chronic HTN 7. Leukocytosis -NEGRO on CKD may be multifactorial and in the setting of infection, use of max dose ARB in the setting of possibly relatively lower BP at times, other. UA not too impressive, non clean catch specimen. Cont to monitor renal function closely, avoid nephrotoxins, monitor UOP. -Mild hyperkalemia on admission, resolved. Hold SHAI inhibitors -Ok to continue gentle diuresis, BNP elevated on admission, obtain echo to assess for any new onset CHF -Defer Abx to the primary team to treat for any community acquired PNA, atypical infection, other -Obtain spot urine study. Thank you for this referral, Chalo Person MD, [facility]
[2021-10-08 12:21] LABS: Arterial Blood Carboxyhemoglob 1.1 % (0-1.5); Blood Gas Oxyhemoglobin 91.2 % (94-97); Blood O2 Saturation 93.5 % (92-98.5)
--- OUTSIDE RECORDS SUMMARY | 2021-10-08 15:34 | XMS REPORT | Continuity of Care Document ---
:1950 Author Organization [facility] t Address [address] [place] [address] Care Team Providers Name Role Phone Fabio Smith Attending Clinician Unavailable Darwin Attending Clinician Unavailable Angelique Attending Clinician Unavailable Problems This patient has no known problems. Allergies, Adverse Reactions, Alerts This patient has no known allergies or adverse reactions. Medications Ordered Filled Start Stop Current Ordering Indication Dosage Frequency Signature Comments Components Source Medication Medication Date Date Medication? Clinician (SIG) Name Name Metoprolol Metoprolol Yes Taylor 1 capsule Common Succinate Succinate 10-22 Millender Spirit 00:00: - [facility] 00 [facility] Amlodipine Amlodipine Yes Taylor 1 tablet Common Besylate Besylate Millender Sp lu [facility] Losartan Losartan Yes Taylor 1 tablet Co mmon Potassium-H Potassium-H Millender Spirit CTZ CTZ [facility] Novolin Novolin Yes Taylor as Common 70/30 70/30 Millender directed Spir it [facility] Procedures This patient has no known procedures. Encounters Start End Encounter Admission Attending Care Care Encounter Source Date/Time Date/Time Type Type Clinicians Facility Department ID 2021-09-08 Outpatient Tara Smith [facility] [id number] Common 16:29:00 [facility] 2021-08-06 Outpatient Tara Smith [facility] [id number] Common 08:41:02 [facility] 2021-07-09 Outpatient Smith, Na [facility] [id number] Common 08:56:01 [facility] 2021-07-08 Outpatient Smith, Na [facility] [id number] Common 11:28:02 [facility] 2021-05-19 Outpatient [facility] [id number] Common 08:54:01 [facility] 2021-04-15 Outpatient Darwin Kin [facility] [id number] Common 12:04:40 [id number] [facility] 2021-04-15 Outpatient Mic Granados [facility] [id number] Common 12:00:21 [id number] [facility] 2021-04-15 Outpatient Millender, [facility] [id number] Common 11:38:16 Taylor [id number] [facility] 2021-04-15 Outpatient Millender, [facility]C [facility] [id number] Common 11:19:31 Taylor [id number] [facility] 2021-04-15 Outpatient Millender, [facility]LMLC [facility] [id number] Common 11:05:40 Taylor [id number] [facility] 2021-04-15 Outpatient Millender, [facility]LMLC [facility] [id number] Common 11:04:10 Taylor [id number] [facility] 2021-10-07 2021-10-07 ambulatory [facility] [id number] Common 00:00:00 00:00:00 [facility] 2021-09-10 2021-09-10 ambulatory [facility]C ST[facility] [id number] Common 00:00:00 00:00:00 [facility] 2021-08-10 2021-08-10 ambulatory [facility] [id number] Common 00:00:00 00:00:00 [facility] 2021-07-30 2021-07-30 ambulatory [facility]C ST[facility] [id number] Common 00:00:00 00:00:00 [facility] 2021-07-09 2021-07-09 ambulatory [facility] [id number] Common 00:00:00 00:00:00 [facility] 2020-03-13 2020-03-13 Outpatient [facility] [id number] Common 00:00:00 00:00:00 [facility] 2020-02-04 2020-02-04 Outpatient [facility] [id number] Common 00:00:00 00:00:00 [facility] 2020-01-17 2020-01-17 Outpatient [facility] [id number] Common 00:00:00 00:00:00 [facility] 2020-01-07 2020-01-07 Outpatient [facility] [id number] Common 00:00:00 00:00:00 [facility] 2019-10-23 2019-10-23 [facility] [id number] Common 13:00:00 13:00:[address] [facility] [address] [facility] [address] [facility] 2019-08-24 2019-08-24 [facility] [id number] Common 10:10:00 10:10:00 t [facility] [address] [facility] [address] [facility] 2019-05-16 2019-05-16 [facility] [id number] Common 15:00:00 15:00:00 t [facility] [address] [facility] [address] [facility] 2019-05-02 2019-05-02 [facility] [id number] Common 10:55:00 10:55:00 t [facility] [address] [facility] [address] [facility] 2019-04-25 2019-04-25 [facility] [id number] Common 10:07:00 10:07:00 t [facility] [address] [facility] [address] [facility] 2019-04-24 2019-04-24 [facility] [id number] Common 09:15:00 09:15:00 t [facility] [address] [facility] [address] [facility] 2019-04-18 2019-04-18 Outpatient Gilbert Shepard [id number] Common 15:15:00 15:15:00 [facility] Results This patient has no known results.
--- NOTE | 2021-10-08 16:56 | P.PN ---
Subjective Date of Service: 10/08/21 Chief Complaint: Sepsis, pneumonia Subjective: Worsening This morning, he reports that his shortness of breath has been worsening. He was having SpO2 readings in the low-80s and was escalated to 15 L NRB. Review of Systems 10-point ROS is otherwise unremarkable Respiratory: Cough, Shortness of Breath, Wheezing Physical Examination - Vital Signs Temperature: 99.1 F Blood Pressure: 126/61 Pulse: 63 Respirations: 24 Pulse Ox (%): 93 - Physical Exam General: Alert, In no apparent distress, Oriented x3 HEENT: Normocephalic, Mucous membr. moist/pink, EOMI, Sclerae nonicteric Neck: Supple, Without JVD or thyroid abnormality Respiratory: Diminished, Rhonchi/gurgles Cardiovascular: No edema, Regular rate/rhythm, Normal S1 S2, No gallops, No rubs, No murmurs Gastrointestinal: Normal bowel sounds, Soft and benign, Non-distended, No tenderness, No rebound, No guarding Musculoskeletal: No tenderness Integumentary: No rashes Neurological: Normal speech, Normal affect - Studies Laboratory Data (last 24 hrs) 10/07/21 18:40: PT 13.3 H, INR 1.20, APTT 32.3 10/07/21 18:40: Sodium 138, Potassium 5.3 H, BUN 60 H, Creatinine 2.96 H, Glucose 165 H, Total Bilirubin 0.8, AST 14 L, ALT 41, Alkaline Phosphatase 102 10/07/21 16:20: WBC 23.1 H*, Hgb 9.8 L, Hct 29.4 L, Plt Count 261 10/07/21 16:20: Sodium 137, Potassium 4.9, BUN 58 H, Creatinine 3.02 H, Glucose 172 H, Magnesium 2.4 Assessment And Plan - Plan # Severe Sepsis likely secondary to Multifocal Pneumonia # Acute Hypoxic Respiratory Failure secondary to Multifocal Pneumonia and Decompensated Heart Failure He met SIRS criteria based on RR > 20 breaths/min and WBC > 12,000 and the suspected source is multifocal pneumonia. Severe sepsis is suspected due to concern for tissue hypoperfusion/organ dysfunction based on a creatinine >2.0 mg/dL (without ESRD). - ABG = pH 7.38, PCO2 33.7, PO2 72.1 - V/Q scan is pending - Ordered procalcitonin - Encouraged incentive spirometry - Code Sepsis was activated in the ED - The diagnoses in this note should be considered an addendum to Rudolph Rivas NP's H&P - Time Zero should remain at 18:23 on 10/07/2021 when first diagnosed with sepsis by Lolly Dong NP - Sepsis order set was initiated - Initial Lactate was 1.1 - Blood cultures drawn before antibiotics were given - Broad spectrum antibiotics started: Ceftriaxone + Azithromycin - In regards to fluids: - 30 mL/kg of IV fluids was not administered given SBP > 90, MAP > 65, lactic acid < 4, and concern for volume overload from CHF exacerbation # Acute on Chronic Decompensated Systolic/Diastolic Congestive Heart Failure with Reduced/Preserved Ejection Fraction - Consult Cardiology - recommendations appreciated - Ordered transthoracic echocardiogram - Diuresis with IV furosemide for today - Daily weights - Strict I/O - Cardiac diet, 2 L fluid restriction, 2 g Na restriction # KDIGO Stage I Acute Kidney Injury on Chronic Kidney Disease Stage III Differential diagnoses includes cardiorenal syndrome +/- sepsis-induced NEGRO - Creatinine = 3.02 (baseline creatinine ~1.7) - Urinalysis = 20-50 bacteria - Renal ultrasound = "tiny echogenic foci in the right kidney could be tiny stones. No hydronephrosis or solid renal mass." - IV diuretics as mentioned above - Monitor creatinine and urine output - Renally dose medications # Type II Diabetes Mellitus, insulin-dependent - Continue current insulin regimen # Hypertension -Continue home carvedilol, amlodipine - Hold home losartan-hydrochlorothiazide given NEGRO # Hyperlipidemia - Continue home atorvastatin Ralf Oakes M.D. Plan to discharge in: Greater than 2 days
--- NOTE | 2021-10-08 17:49 | RAD REPORT ---
EXAM DESCRIPTION: NM - Vent Perfusion VQ Scan - 10/08/2021 5:37 pm CLINICAL HISTORY: Shortness of breath COMPARISON: Chest radiograph from 10/07/2021 TECHNIQUE: The patient was administered approximately 20 mCi Xenon 133 gas with posterior projection inspiration, equilibrium, and washout views obtained. The patient was then administered approximatel y 7 mCi Tc-99m SC labeled RBCs followed by standard 8 view protocol. FINDINGS: There is poor distribution of the Xenon but no obvious ventilation defects identified. No significant air-trapping seen. Perfusion images show no defects suspicious for pulmonary emboli. IMPRESSION: Very low probability for pulmonary embolism.
[2021-10-08] MEDS: ATORVASTATIN 20 MG TAB PO SCH (20:37)
[2021-10-08] MEDS: GLUCERNA SHAKE 237 ML CAN PO SCH (20:38)
[2021-10-08] MEDS: FUROSEMIDE 40 MG/4 ML VIAL IV SCH (20:49)
[2021-10-09 04:17] LABS: Absolute Lymphocytes (CBC) 2.7 K/uL (0.7-4.9); Lymphocytes % 14.2 % (15.3-44.8); MCV 92.8 fL (80-100); MPV 10.2 fL (7.6-11.3)
[2021-10-09 04:36] LABS: Albumin 2.7 g/dL (3.4-5.0); Bilirubin Total 0.4 mg/dL (0.2-1.0)
--- NOTE | 2021-10-09 05:36 | CON ---
Date of Consultation: 10/08/[address] Oakes's service. Reason For Consultation: Possible congestive heart failure. History Of Present Illness: Mr. Virk is a 71-year-old male who came into the emergency room, compla ining of shortness of breath, edema, hyperglycemia, cough, and fever. He sees Dr. Gaffney as a primary care physician and he also sees Dr. Rios. He has a history of hypertension, diabetes, and dyslip idemia. He denied any chest pain. Symptoms have been going on for about 5 days. Denies nausea, vom iting, or diaphoresis. Denied any palpitation. He denied any syncope. Past Medical History: As stated above. Allergies: NONE. Review of Systems: Negative. Social History: Negative. Family History: Noncontributory. Medications: At home include Norvasc, Lipitor, Coreg, Trulicity, insulin, and losartan with hydrochl orothiazide. Physical Examination: General: When I saw him here prior, he was in no acute distress. Vital Signs: His blood pressure was 126/61 with a pulse of 63, respiratory rate of 17, the temperatur e was 99.4, he was in sinus rhythm. HEENT: Negative. Neck: Supple without any bruit, lymphadenopathy, or JVD. Chest: Revealed rales at both bases. Cardiac: Revealed a regular rhythm and rate with S4 gallops. No murmurs or rubs. Abdomen: Benign. Extremities: Revealed a 1+ edema. Diagnostic Data: He had a blood gas with a pO2 of 72, pCO2 of 33, pH of 7.38. His creatinine was 2. 9. His white count was 21,000, hemoglobin was 9.8, BNP was 2081. Troponin was negative. His procal citonin is 0.22. Chest x-ray was consistent with interstitial edema versus multifocal pneumonia. EK G was normal. Impression And Plan: Mr. Virk's symptoms and x-ray with fever and elevated white count and elevated procalcitonin and are more consistent with pneumonia. Echocardiogram is pending. I agre e with his present regimen for now. He is on amlodipine, antibiotics, Lipitor, Lasix, insulin, and c arvedilol, as well as heparin subcu. We will see what his echo shows before changing any decisions. His blood pressure is well controlled. His dyslipidemia is well controlled and diabetes is poorly c ontrolled for now. I think Nephrology should be involved in his care. We will see what the echo myles ws. We will continue to follow. JUD Voice ID: [id number] Report ID: [id number]
[2021-10-09] MEDS: carvediloL 25 MG TAB PO SCH ×2 (06:28→17:35)
--- NOTE | 2021-10-09 06:46 | ECHO ---
HEIGHT: 5 ft 6 in WEIGHT: 178 lb 0 oz DATE OF STUDY: 10/08/[address]: Rudolph Rivas NP 2-DIMENSIONAL: YES M.MODE: YES DOPPLER: YES COLOR FLOW: YES TDS: NO PORTABLE: YES DEFINITY: NO BUBBLE STUDY: NO DIAGNOSIS: RULE OUT CONGESTIVE HEART FAILURE CARDIAC HISTORY: CATHERIZATION: NO SURGERY: NO PROSTHETIC VALVE: NO PACEMAKER: NO MEASUREMENTS (cm) DIASTOLIC (NORMALS) SYSTOLIC (NORMALS) IVSd 1.2 (0.6-1.2) LA Diam 3.0 (1.9-4.0) LVEF 59% LVIDd 4.3 (3.5-5.7) LVIDs 2.9 (2.0-3.5) %FS 31% LVPWd 1.2 (0.6-1.2) Ao Diam 2.6 (2.0-3.7) 2 DIMENSIONAL ASSESSMENT: RIGHT ATRIUM: NORMAL LEFT ATRIUM: NORMAL RIGHT VENTRICLE: NORMAL LEFT VENTRICLE: NORMAL TRICUSPID VALVE: NORMAL MITRAL VALVE: PULMONIC VALVE: NORMAL AORTIC VALVE: NORMAL PERICARDIAL EFFUSION: NONE AORTIC ROOT: NORMAL LEFT VENTRICULAR WALL MOTION: APPEARS NORMAL. DOPPLER/COLOR FLOW: MILD MITRAL AND TRICUSPID REGURGITATION. COMMENTS: NORMAL LEFT VENTRICULAR EJECTION FRACTION 55-60%. NORMAL DIASTOLIC FUNCTION. MILD MITRAL AND TRICUSPID REGURGITATION. TECHNOLOGIST: Davi STONE
[2021-10-09] MEDS: INSULIN -REGULAR HUMAN 50 UNIT/0.5 ML ML SQ SCH ×4 (07:30→21:00)
[2021-10-09] MEDS: AMLODIPINE 5 MG TAB PO SCH (08:53)
[2021-10-09] MEDS: INSULIN GLARGINE 100 UNIT/ML SQ SCH (08:55)
[2021-10-09] MEDS: FUROSEMIDE 40 MG/4 ML VIAL IV SCH (08:56)
[2021-10-09] MEDS: AZITHROMYCIN IV 500 MG in NA CHLORIDE 0.9% 250 ML IVPB SCH (08:56)
[2021-10-09] MEDS: CEFTRIAXONE 1,000 MG in NA CHLORIDE 0.9% 50 ML IVPB SCH (08:56)
[2021-10-09] MEDS: HEPARIN 5000 UNIT/ML 1 ML VIAL SQ SCH ×2 (08:56→20:07)
[2021-10-09] MEDS: GLUCERNA SHAKE 237 ML CAN PO SCH ×2 (08:57→20:07)
--- NOTE | 2021-10-09 10:02 | P.PN ---
Date of Service: 10/09/21 Nephrology Note: (S) Pt reports some improvement in shortness of breath although is on HFNC at 15L, denies any CP, not much cough. No other complaints. General: Alert, In no apparent distress HEENT: Atraumatic, Normocephalic, EOMI Neck: Supple, JVD distended Respiratory: Normal air movement, non tachypnec, no rhonchi Cardiovascular: No edema, Regular rate/rhythm Gastrointestinal: Soft and benign, Non-distended Musculoskeletal: No clubbing, No swelling, No contractures Integumentary: No rashes Neurological: Normal speech, Normal affect Laboratory Data (last 24 hrs) Reviewed in EMR Conclusions/Impression: 1. Stage II NEGRO 2. Underlying CKD Stage IIIb 3. Dyspnea unspecified 4. PNA 2nd to unspecified organism 5. Acute pulmonary edema 6. Chronic HTN 7. Leukocytosis -NEGRO on CKD may be multifactorial and in the setting of infection, use of max dose ARB in the setting of possibly relatively lower BP at times, other. UA not too impressive, non clean catch specimen. Cont to monitor renal function closely while on diuretics, Cr level marginally higher today but no urgent indication for HD yet, avoid nephrotoxins, monitor UOP. -Mild hyperkalemia on admission, resolved. Hold SHAI inhibitors -Ok to continue gentle diuresis, BNP elevated on admission, but echo not too impressive for CHF so edema may be non-cardiogenic -Defer Abx to the primary team to treat for any community acquired PNA, atypical infection, other -Obtained spot urine study which shows macroalbuminuria presumably from underlying diabetic nephropathy but will need to monitor as OP. Thank you for this referral, Chalo Person MD, [facility]
--- NOTE | 2021-10-09 14:01 | P.PN ---
Subjective Date of Service: 10/09/21 Chief Complaint: Sepsis, pneumonia This morning, he reports that he feels that his breathing is improving; however, he remains on 15 L NRB. He denies any cough or chest pain. His SpO2 was 92 % this morning on 15 L NRB. Review of Systems 10-point ROS is otherwise unremarkable Respiratory: Shortness of Breath, SOB with Excertion, Wheezing Physical Examination - Vital Signs Temperature: 98.7 F Blood Pressure: 127/58 Pulse: 61 Respirations: 16 Pulse Ox (%): 91 Assessment And Plan - Plan PHYSICAL EXAMINATION: General: Alert, In no apparent distress, Oriented x3 HEENT: Normocephalic, Mucous membr. moist/pink, EOMI, Sclerae nonicteric Neck: Supple, Without JVD or thyroid abnormality Respiratory: SpO2 92 % on 15 L NRB. Diminished, Rhonchi/gurgles Cardiovascular: No edema, Regular rate/rhythm, Normal S1 S2, No gallops, No rubs, No murmurs Gastrointestinal: Normal bowel sounds, Soft and benign, Non-distended, No tenderness, No rebound, No guarding Musculoskeletal: No tenderness Integumentary: No rashes Neurological: Normal speech, Normal affect DIAGNOSIS: # Severe Sepsis likely secondary to Multifocal Pneumonia # Acute Hypoxic Respiratory Failure secondary to Multifocal Pneumonia and Decompensated Heart Failure He met SIRS criteria based on RR > 20 breaths/min and WBC > 12,000 and the suspected source is multifocal pneumonia. Severe sepsis is suspected due to concern for tissue hypoperfusion/organ dysfunction based on a creatinine >2.0 mg/dL (without ESRD). - ABG = pH 7.38, PCO2 33.7, PO2 72.1 - V/Q scan = "very low probability for pulmonary embolism." - Procalcitonin = 0.22 - Supplemental oxygen to maintain SpO2 > 92 % - Wean as tolerated - Encouraged incentive spirometry - Code Sepsis was activated in the ED - The diagnoses in this note should be considered an addendum to Rudolph Rivas [employer] ENGINEER's H&P - Time Zero should remain at 18:23 on 10/07/2021 when first diagnosed with sepsis by Lolly Dong NP - Sepsis order set was initiated - Initial Lactate was 1.1 - Blood cultures drawn before antibiotics were given - Broad spectrum antibiotics started: Ceftriaxone + Azithromycin - In regards to fluids: - 30 mL/kg of IV fluids was not administered given SBP > 90, MAP > 65, lactic acid < 4, and concern for volume overload from CHF exacerbation # Acute on Chronic Decompensated Congestive Heart Failure with Preserved Ejection Fraction - Consult Cardiology and spoke with Dr. Guerrero - recommendations appreciated - Transthoracic echocardiogram = "normal left ventricular ejection fraction 55- 60%. normal diastolic function. mild mitral and tricuspid regurgitation." - Diuresis with IV furosemide for today - Daily weights - Strict I/O - Cardiac diet, 2 L fluid restriction, 2 g Na restriction # KDIGO Stage I Acute Kidney Injury on Chronic Kidney Disease Stage III Differential diagnoses includes cardiorenal syndrome +/- sepsis-induced NEGRO. - Consult Nephrology and spoke with Dr. Person - recommendations appreciated - Creatinine = 3.02 -> 2.96 -> 2.99 -> 3.18 (baseline creatinine ~1.7) - Urinalysis = 20-50 bacteria - Renal ultrasound = "tiny echogenic foci in the right kidney could be tiny stones. No hydronephrosis or solid renal mass." - IV diuretics as mentioned above - Monitor creatinine and urine output - Renally dose medications # Type II Diabetes Mellitus, insulin-dependent - Continue current insulin regimen # Hypertension -Continue home carvedilol, amlodipine - Hold home losartan-hydrochlorothiazide given NEGRO # Hyperlipidemia - Continue home atorvastatin Ralf Oakes M.D. Discharge Plan: Home Plan to discharge in: Greater than 2 days
[2021-10-09] MEDS: ATORVASTATIN 20 MG TAB PO SCH (20:07)
[2021-10-10 04:33] LABS: Absolute Lymphocytes (CBC) 2.6 K/uL (0.7-4.9); Hematocrit 25.4 % (39.6-49.0); Lymphocytes % 16.2 % (15.3-44.8); MCV 92.4 fL (80-100); MPV 9.4 fL (7.6-11.3); RBC Red Blood Cell Count 2.75 M/uL (4.33-5.43)
[2021-10-10 04:49] LABS: Albumin 2.5 g/dL (3.4-5.0); Bilirubin Total 0.4 mg/dL (0.2-1.0); Potassium 3.9 mmol/L (3.5-5.1); Protein, Total 6.9 g/dL (6.4-8.2)
--- NOTE | 2021-10-10 05:42 | PN ---
Date of Progress Note: 10/09/2021 Mr. Virk has admitted with possible congestive heart failure, but was really found to have pneumonia . His echocardiogram was perfectly normal. He is still on low-dose Lasix. He is on Lipitor, Norvas c, and antibiotics. He is feeling much better. Better oxygenation. No specific complaint, but I st ill think he needs to stay in the hospital for more antibiotic treatment. No further cardiac workup recommended at this point. DOREEN/DANIELA Voice ID: [id number] Report ID: [id number]
[2021-10-10] MEDS: carvediloL 25 MG TAB PO SCH ×2 (06:15→17:34)
[2021-10-10] MEDS: INSULIN -REGULAR HUMAN 50 UNIT/0.5 ML ML SQ SCH ×4 (07:30→20:50)
[2021-10-10] MEDS: HEPARIN 5000 UNIT/ML 1 ML VIAL SQ SCH ×2 (09:24→20:51)
[2021-10-10] MEDS: CEFTRIAXONE 1,000 MG in NA CHLORIDE 0.9% 50 ML IVPB SCH (09:24)
[2021-10-10] MEDS: AZITHROMYCIN IV 500 MG in NA CHLORIDE 0.9% 250 ML IVPB SCH (09:24)
[2021-10-10] MEDS: FUROSEMIDE 20 MG/ 2ML VIAL IV SCH ×2 (09:24→17:33)
[2021-10-10] MEDS: INSULIN GLARGINE 100 UNIT/ML SQ SCH (09:25)
[2021-10-10] MEDS: GLUCERNA SHAKE 237 ML CAN PO SCH ×2 (09:25→20:49)
[2021-10-10] MEDS: AMLODIPINE 5 MG TAB PO SCH (09:25)
--- NOTE | 2021-10-10 11:17 | RAD REPORT ---
EXAM DESCRIPTION: RAD - Chest Single View - 10/10/2021 10:46 am CLINICAL HISTORY: sob COMPARISON: Chest Single View dated 10/07/2021; Chest Single View dated 12/12/2020; Chest Pa And Lat ( 2 Views) dated 08/17/2019; Chest Pa And Lat (2 Views) dated 05/10/2018 FINDINGS: Lines: None. Lungs: Increasing interstitial prominence bilaterally. Pleural: No significant pleural effusions or pneumothorax. Cardiac: Mild cardiomegaly. Bones: No acute fractures. Other: IMPRESSION: Increasing prominence of the pulmonary interstitium consistent with interstitial edema.
--- NOTE | 2021-10-10 13:32 | PN ---
Date of Progress Note: 10/10/2021 Subjective: The patient was seen and examined at bedside. He denies any complaints. Shortness of b reath is improving. His family is also at bedside interpreting for his. Physical Examination: Vital Signs: Showing temperature of 97.2, pulse rate of 62, respiratory rate of 18, blood pressure 1 40/60, and O2 saturation of 95% on 12 L nasal cannula oxygen. General: He appears in no acute distress. HEENT: Atraumatic head. Lungs: Auscultation of the lungs with bilateral equal air entry anteriorly. Abdomen: Soft and nontender. Extremities: Showed no evidence of edema. Laboratory Data: Showing creatinine improving to 2.79 from 3.1. Other electrolytes are stable. CBC showing improving WBC count, stable hemoglobin, hematocrit, and platelet count. Current Medications: Include azithromycin, carvedilol, atorvastatin, amlodipine, and Rocephin. Impression: 1.Acute on chronic renal insufficiency secondary to possibly from ATN, currently with improving michaela l function. 2.Acute respiratory failure secondary to possibly from pneumonia plus or minus congestive heart fail ure. The patient is currently being diuresed with Lasix 20 mg IV b.i.d. and is also being treated fo r pneumonia. His leukocytosis is improving. 3.Hyperkalemia, improving. 4.Chronic hypertension, improving, currently stable. Plan: The patient is overall doing okay. Continue current gentle diuresis along with antibiotics wi th respiratory toilet and monitor renal function. Avoid further hypotension nephrotoxins. The patient's ARB has been discontinued in light of acute renal failure. VV/MODL Voice ID: [id number] Report ID: [id number]
--- NOTE | 2021-10-10 14:18 | P.PN ---
Subjective Date of Service: 10/10/21 Chief Complaint: Sepsis, pneumonia This morning, he reports that he feels that his breathing is improving; however, he remains on 12 L nasal cannula. He denies any cough or chest pain. His SpO2 was 93-94 % this morning on 12 L NC. He reports no additional concerns this morning. Review of Systems 10-point ROS is otherwise unremarkable Respiratory: Cough, Shortness of Breath, SOB with Excertion Physical Examination - Vital Signs Temperature: 97.5 F Blood Pressure: 137/63 Pulse: 61 Respirations: 18 Pulse Ox (%): 90 Assessment And Plan - Plan PHYSICAL EXAMINATION: General: Alert, In no apparent distress, Oriented x3 HEENT: Normocephalic, Mucous membr. moist/pink, EOMI, Sclerae nonicteric Neck: Supple, Without JVD or thyroid abnormality Respiratory: SpO2 93-94 % on 12 L NC. Diminished, Rhonchi/gurgles Cardiovascular: No edema, Regular rate/rhythm, Normal S1 S2, No gallops, No rubs, No murmurs Gastrointestinal: Normal bowel sounds, Soft and benign, Non-distended, No tenderness, No rebound, No guarding Musculoskeletal: No tenderness Integumentary: No rashes Neurological: Normal speech, Normal affect DIAGNOSIS: # Severe Sepsis likely secondary to Multifocal Pneumonia # Acute Hypoxic Respiratory Failure secondary to Multifocal Pneumonia and Decompensated Heart Failure He met SIRS criteria based on RR > 20 breaths/min and WBC > 12,000 and the suspected source is multifocal pneumonia. Severe sepsis is suspected due to concern for tissue hypoperfusion/organ dysfunction based on a creatinine >2.0 mg/dL (without ESRD). - ABG = pH 7.38, PCO2 33.7, PO2 72.1 - V/Q scan = "very low probability for pulmonary embolism." - Procalcitonin = 0.22 - Supplemental oxygen to maintain SpO2 > 92 % - Wean as tolerated - Encouraged incentive spirometry - Code Sepsis was activated in the ED - The diagnoses in this note should be considered an addendum to Rudolph Rivas NP's H&P - Time Zero should remain at 18:23 on 10/07/2021 when first diagnosed with sepsis by Lolly Dong NP - Sepsis order set was initiated - Initial Lactate was 1.1 - Blood cultures drawn before antibiotics were given - Broad spectrum antibiotics started: Ceftriaxone + Azithromycin - In regards to fluids: - 30 mL/kg of IV fluids was not administered given SBP > 90, MAP > 65, lactic acid < 4, and concern for volume overload from CHF exacerbation - Ordered repeat COVID-19 as well as RSV/Influenza swabs given persistent hypoxia # Acute on Chronic Decompensated Congestive Heart Failure with Preserved Eje ction Fraction - Consult Cardiology and spoke with Dr. Guerrero - recommendations appreciated - Transthoracic echocardiogram = "normal left ventricular ejection fraction 55- 60%. normal diastolic function. mild mitral and tricuspid regurgitation." - Diuresis with IV furosemide for today - Daily weights - Strict I/O - Cardiac diet, 2 L fluid restriction, 2 g Na restriction # KDIGO Stage I Acute Kidney Injury on Chronic Kidney Disease Stage III Differential diagnoses includes cardiorenal syndrome +/- sepsis-induced NEGRO. - Consult Nephrology and spoke with Dr. Gatica - recommendations appreciated - Creatinine = 3.02 -> 2.96 -> 2.99 -> 3.18 -> 2.79 (baseline creatinine ~1.7) - Urinalysis = 20-50 bacteria - Renal ultrasound = "tiny echogenic foci in the right kidney could be tiny stones. No hydronephrosis or solid renal mass." - IV diuretics as mentioned above - Monitor creatinine and urine output - Renally dose medications # Type II Diabetes Mellitus, insulin-dependent - Continue current insulin regimen # Hypertension -Continue home carvedilol, amlodipine - Hold home losartan-hydrochlorothiazide given NEGRO # Hyperlipidemia - Continue home atorvastatin Ralf Oakes M.D.
[2021-10-10] MEDS: ATORVASTATIN 20 MG TAB PO SCH (20:51)
[2021-10-11 04:31] LABS: Hematocrit 26.2 % (39.6-49.0); Lymphocytes % 20.9 % (15.3-44.8); MCV 92.2 fL (80-100); MPV 9.5 fL (7.6-11.3); RBC Red Blood Cell Count 2.84 M/uL (4.33-5.43)
[2021-10-11 04:57] LABS: Albumin 2.5 g/dL (3.4-5.0); Bilirubin Total 0.4 mg/dL (0.2-1.0); Potassium 3.6 mmol/L (3.5-5.1)
[2021-10-11] MEDS: carvediloL 25 MG TAB PO SCH ×2 (05:22→16:58)
[2021-10-11] MEDS: INSULIN -REGULAR HUMAN 50 UNIT/0.5 ML ML SQ SCH ×4 (07:30→20:57)
[2021-10-11] MEDS: AZITHROMYCIN IV 500 MG in NA CHLORIDE 0.9% 250 ML IVPB SCH (10:10)
[2021-10-11] MEDS: CEFTRIAXONE 1,000 MG in NA CHLORIDE 0.9% 50 ML IVPB SCH (10:11)
[2021-10-11] MEDS: AMLODIPINE 5 MG TAB PO SCH (10:11)
[2021-10-11] MEDS: FUROSEMIDE 20 MG/ 2ML VIAL IV SCH ×2 (10:11→16:58)
[2021-10-11] MEDS: INSULIN GLARGINE 100 UNIT/ML SQ SCH (10:12)
[2021-10-11] MEDS: HEPARIN 5000 UNIT/ML 1 ML VIAL SQ SCH ×2 (10:12→20:52)
[2021-10-11] MEDS: GLUCERNA SHAKE 237 ML CAN PO SCH ×2 (10:26→20:56)
--- NOTE | 2021-10-11 16:16 | P.PN ---
Subjective Date of Service: 10/11/21 Chief Complaint: Sepsis, pneumonia This morning, he reports that he feels that his breathing is improving; however, he remains on 11 L nasal cannula. He reports a dry cough. His SpO2 was 91-94 % this morning on 11 L NC. He reports no additional concerns this morning. Review of Systems 10-point ROS is otherwise unremarkable Respiratory: Cough, SOB with Excertion Physical Examination - Vital Signs Temperature: 97.6 F Blood Pressure: 144/63 Pulse: 64 Respirations: 18 Pulse Ox (%): 94 Assessment And Plan - Plan PHYSICAL EXAMINATION: General: Alert, In no apparent distress, Oriented x3 HEENT: Normocephalic, Mucous membr. moist/pink, EOMI, Sclerae nonicteric Neck: Supple, Without JVD or thyroid abnormality Respiratory: SpO2 91-94 % on 11 L NC. Diminished, Rhonchi/gurgles, End- expiratory wheezing noted Cardiovascular: No edema, Regular rate/rhythm, Normal S1 S2, No gallops, No rubs, No murmurs Gastrointestinal: Normal bowel sounds, Soft and benign, Non-distended, No tenderness, No rebound, No guarding Musculoskeletal: No tenderness Integumentary: No rashes Neurological: Normal speech, Normal affect DIAGNOSIS: # Severe Sepsis likely secondary to Multifocal Pneumonia # Acute Hypoxic Respiratory Failure secondary to Multifocal Pneumonia and Decompensated Heart Failure He met SIRS criteria based on RR > 20 breaths/min and WBC > 12,000 and the suspected source is multifocal pneumonia. Severe sepsis is suspected due to concern for tissue hypoperfusion/organ dysfunction based on a creatinine >2.0 mg/dL (without ESRD). - ABG = pH 7.38, PCO2 33.7, PO2 72.1 - V/Q scan = "very low probability for pulmonary embolism." - Procalcitonin = 0.22 - Supplemental oxygen to maintain SpO2 > 92 % - Wean as tolerated - Encouraged incentive spirometry - Code Sepsis was activated in the ED - The diagnoses in this note should be considered an addendum to Rudolph Rivas [employer] HELPER's H&P - Time Zero should remain at 18:23 on 10/07/2021 when first diagnosed with sepsis by Lolly Dong NP - Sepsis order set was initiated - Initial Lactate was 1.1 - Blood cultures drawn before antibiotics were given - Broad spectrum antibiotics started: Ceftriaxone + Azithromycin - In regards to fluids: - 30 mL/kg of IV fluids was not administered given SBP > 90, MAP > 65, lactic acid < 4, and concern for volume overload from CHF exacerbation - Ordered repeat COVID-19 as well as RSV/Influenza swabs given persistent hypoxia - Consulted Pulmonary Medicine - recommendations appreciated # Acute on Chronic Decompensated Congestive Heart Failure with Preserved Ejection Fraction - Consult Cardiology and spoke with Dr. Guerrero - recommendations appreciated - Transthoracic echocardiogram = "normal left ventricular ejection fraction 55- 60%. normal diastolic function. mild mitral and tricuspid regurgitation." - Diuresis with IV furosemide for today - Daily weights - Strict I/O - Cardiac diet, 1.5 L fluid restriction, 2 g Na restriction # KDIGO Stage I Acute Kidney Injury on Chronic Kidney Disease Stage III Differential diagnoses includes cardiorenal syndrome +/- sepsis-induced NEGRO. - Consult Nephrology and spoke with Dr. Gatica - recommendations appreciated - Creatinine = 3.02 -> 2.96 -> 2.99 -> 3.18 -> 2.79 -> 2.55 (baseline creatinine ~1.7) - Urinalysis = 20-50 bacteria - Renal ultrasound = "tiny echogenic foci in the right kidney could be tiny stones. No hydronephrosis or solid renal mass." - IV diuretics as mentioned above - Monitor creatinine and urine output - Renally dose medications # Type II Diabetes Mellitus, insulin-dependent - Continue current insulin regimen # Hypertension -Continue home carvedilol, amlodipine - Hold home losartan-hydrochlorothiazide given NEGRO # Hyperlipidemia - Continue home atorvastatin Ralf Oakes M.D. Physician Review: Patient Assessed, Agree with Above Assessment and Plan
[2021-10-11] MEDS ORDERED: NA CHLORIDE 0.9% 0 ML ONE (17:02)
[2021-10-11] MEDS: ATORVASTATIN 20 MG TAB PO SCH (20:56)
[2021-10-12 04:31] LABS: Absolute Lymphocytes (CBC) 2.8 K/uL (0.7-4.9); Hematocrit 26.9 % (39.6-49.0); Lymphocytes % 20.6 % (15.3-44.8); MCV 91.4 fL (80-100); MPV 9.1 fL (7.6-11.3); RBC Red Blood Cell Count 2.95 M/uL (4.33-5.43)
[2021-10-12 04:39] LABS: Albumin 2.5 g/dL (3.4-5.0); Bilirubin Total 0.4 mg/dL (0.2-1.0); Potassium 3.9 mmol/L (3.5-5.1); Protein, Total 6.8 g/dL (6.4-8.2)
[2021-10-12] MEDS: carvediloL 25 MG TAB PO SCH ×2 (05:44→17:15)
[2021-10-12] MEDS: INSULIN -REGULAR HUMAN 50 UNIT/0.5 ML ML SQ SCH ×4 (07:30→21:00)
[2021-10-12] MEDS: CEFTRIAXONE 1,000 MG in NA CHLORIDE 0.9% 50 ML IVPB SCH (09:27)
[2021-10-12] MEDS: FUROSEMIDE 20 MG/ 2ML VIAL IV SCH ×2 (09:28→17:15)
[2021-10-12] MEDS: HEPARIN 5000 UNIT/ML 1 ML VIAL SQ SCH ×2 (09:28→21:19)
[2021-10-12] MEDS: AMLODIPINE 5 MG TAB PO SCH (09:28)
[2021-10-12] MEDS: GLUCERNA SHAKE 237 ML CAN PO SCH ×2 (09:29→21:25)
[2021-10-12] MEDS: INSULIN GLARGINE 100 UNIT/ML SQ SCH (09:47)
[2021-10-12] MEDS: AZITHROMYCIN IV 500 MG in NA CHLORIDE 0.9% 250 ML IVPB SCH (09:47)
[2021-10-12] MEDS ORDERED: METOLAZONE 5 MG TABLET PO ONE (10:30)
--- NOTE | 2021-10-12 11:36 | P.PN ---
Subjective Date of Service: 10/12/21 Chief Complaint: Sepsis, pneumonia Subjective: No new changes No acute events overnight. He reports that his shortness of breath is only present with exertion. He remains on 11 L nasal cannula, with SpO2 readings of 93 %. He denies any chest pain, nausea, or vomiting. Review of Systems Respiratory: Cough, SOB with Excertion Physical Examination - Vital Signs Temperature: 98.2 F Blood Pressure: 146/64 Pulse: 61 Respirations: 16 Pulse Ox (%): 93 Assessment And Plan - Plan PHYSICAL EXAMINATION: General: Alert, In no apparent distress, Oriented x3 HEENT: Normocephalic, Mucous membr. moist/pink, EOMI, Sclerae nonicteric Neck: Supple, Without JVD or thyroid abnormality Respiratory: SpO2 93 % on 11 L NC. Diminished, Rhonchi/gurgles, End-expiratory wheezing noted Cardiovascular: No edema, Regular rate/rhythm, Normal S1 S2, No gallops, No rubs, No murmurs Gastrointestinal: Normal bowel sounds, Soft and benign, Non-distended, No tenderness, No rebound, No guarding Musculoskeletal: No tenderness Integumentary: No rashes Neurological: Normal speech, Normal affect DIAGNOSIS: # Severe Sepsis likely secondary to Multifocal Pneumonia # Acute Hypoxic Respiratory Failure secondary to Multifocal Pneumonia and Decompensated Heart Failure He met SIRS criteria based on RR > 20 breaths/min and WBC > 12,000 and the suspected source is multifocal pneumonia. Severe sepsis is suspected due to concern for tissue hypoperfusion/organ dysfunction based on a creatinine >2.0 mg/dL (without ESRD). - ABG = pH 7.38, PCO2 33.7, PO2 72.1 - V/Q scan = "very low probability for pulmonary embolism." - Procalcitonin = 0.22 - Supplemental oxygen to maintain SpO2 > 92 % - Wean as tolerated - Encouraged incentive spirometry - Code Sepsis was activated in the ED - The diagnoses in this note should be considered an addendum to Rudolph Rivas [employer]PERATIONS SPECIALIST's H&P - Time Zero should remain at 18:23 on 10/07/2021 when first diagnosed with sepsis by Lolly Dong NP - Sepsis order set was initiated - Initial Lactate was 1.1 - Blood cultures drawn before antibiotics were given - Broad spectrum antibiotics started: Ceftriaxone + Azithromycin - In regards to fluids: - 30 mL/kg of IV fluids was not administered given SBP > 90, MAP > 65, lactic acid < 4, and concern for volume overload from CHF exacerbation - Ordered repeat COVID-19 as well as RSV/Influenza swabs given persistent hypoxia, which were negative - Consulted Pulmonary Medicine - recommendations appreciated - Leukocytosis is improving, but still requiring high doses of oxygen # Acute on Chronic Decompensated Congestive Heart Failure with Preserved Ejection Fraction - Consult Cardiology and spoke with Dr. Guerrero - recommendations appreciated - Transthoracic echocardiogram = "normal left ventricular ejection fraction 55- 60%. normal diastolic function. mild mitral and tricuspid regurgitation." - Diuresis with IV furosemide for today - Daily weights - Strict I/O - Cardiac diet, 1.5 L fluid restriction, 2 g Na restriction # KDIGO Stage I Acute Kidney Injury on Chronic Kidney Disease Stage III, improving Differential diagnoses includes cardiorenal syndrome +/- sepsis-induced NEGRO. - Consult Nephrology and spoke with Dr. Rios - recommendations appreciated - Creatinine = 3.02 -> 2.96 -> 2.99 -> 3.18 -> 2.79 -> 2.55 -> 2.19 (baseline creatinine ~1.7) - Urinalysis = 20-50 bacteria - Renal ultrasound = "tiny echogenic foci in the right kidney could be tiny stones. No hydronephrosis or solid renal mass." - IV diuretics as mentioned above - Monitor creatinine and urine output - Renally dose medications # Type II Diabetes Mellitus, insulin-dependent - Continue current insulin regimen # Hypertension -Continue home carvedilol, amlodipine - Hold home losartan-hydrochlorothiazide given NEGRO # Hyperlipidemia - Continue home atorvastatin Ralf Oakes M.D. Physician Review: Patient Assessed, Agree with Above Assessment and Plan
--- NOTE | 2021-10-12 15:01 | RAD REPORT ---
EXAM DESCRIPTION: RAD - Chest Single View - 10/12/2021 2:54 pm CLINICAL HISTORY: pneumonia COMPARISON: October 10 portable TECHNIQUE: AP portable chest image was obtained 10/12/2021 2:54 pm . FINDINGS: Lung volume is improved from the comparison study. Interstitial and patchy alveolar opacit ies do appear to have improved even when adjusting for the better inspiratory effort. No new or progr essive finding. No significant failure or volume overload. Heart size is smaller than on prior study. No measurable pleural effusion and no pneumothorax. No ac shayne bony abnormality seen. No acute aortic findings suspected. IMPRESSION: Improved aeration of the lung souza since October 10 imaging. No new or progressive find ing.
--- NOTE | 2021-10-12 18:51 | P.PN ---
Date of Service: 10/12/21 Vital Signs Temp Pulse Resp BP Pulse Ox 97.6 F 58 16 141/65 H 94 10/12/21 16:00 10/12/21 17:15 10/12/21 16:00 10/12/21 17:15 10/12/21 16:00 Medications Acetaminophen (Acetaminophen 500 Mg Tab) 500 mg PO Q6H PRN PRN Reason: Pain scale 2-4 (Mild) Last Admin: 10/08/21 04:13 Dose: 500 mg Documented by: Amlodipine Besylate (Amlodipine 5 Mg Tab) 5 mg PO DAILY [facility] Last Admin: 10/12/21 09:28 Dose: 5 mg Documented by: Atorvastatin Calcium (Atorvastatin 20 Mg Tab) 20 mg PO BEDTIME [facility] Last Admin: 10/11/21 20:56 Dose: 20 mg Documented by: Carvedilol (Carvedilol 25 Mg Tab) 25 mg PO BID 6AM 6PM [facility] Last Admin: 10/12/21 17:15 Dose: 25 mg Documented by: Enteral Nutritional Formula (Glucerna Shake 237 Ml Can) 237 ml PO BID [facility] Last Admin: 10/12/21 09:29 Dose: 237 ml Documented by: Furosemide (Furosemide 20 Mg/ 2ml Vial) 20 mg IV BIDL [facility] Last Admin: 10/12/21 17:15 Dose: 20 mg Documented by: Heparin Sodium (Porcine) (Heparin 5000 Unit/Ml 1 Ml Vial) 5,000 unit SQ Q12HR [facility] Last Admin: 10/12/21 09:28 Dose: 5,000 unit Documented by: Azithromycin 500 mg/ Sodium (Chloride) 250 mls @ 250 mls/hr IVPB DAILY [facility]; Protocol Last Admin: 10/12/21 09:47 Dose: 250 mls Documented by: Ceftriaxone Sodium 1,000 mg/ (Sodium Chloride) 50 mls @ 100 mls/hr IVPB DAILY [facility]; Protocol Last Admin: 10/12/21 09:27 Dose: 50 mls Documented by: Insulin Glargine (Insulin Glargine 100 Unit/Ml) 15 unit SQ DAILY [facility] Last Admin: 10/12/21 09:47 Dose: 15 unit Documented by: Insulin Human Regular (Insulin -Regular Human 50 Unit/0.5 Ml Ml) 0 unit SQ ACHS [facility]; Protocol Last Admin: 10/12/21 16:30 Dose: Not Given Documented by: Ondansetron HCl (Ondansetron 4 Mg/2 Ml Vial) 4 mg IV Q6HP PRN PRN Reason: NAUSEA / VOMITING Sodium Chloride (Flush Normal Saline 10 Ml) 10 ml IV BID [facility] Last Admin: 10/12/21 09:29 Dose: 10 ml Documented by: Microbiology Results 10/07/21 18:55 Blood - Blood Aerobic Blood Culture - Preliminary No growth in 24 hours. 10/07/21 18:55 Blood - Blood Anaerobic Blood Culture - Preliminary No growth in 24 hours. 10/07/21 18:40 Blood - Blood Aerobic Blood Culture - Preliminary No growth in 24 hours. 10/07/21 18:40 Blood - Blood Anaerobic Blood Culture - Preliminary No growth in 24 hours. Assessment/ Plan: Nephrology Improving dyspnea No chest pain No acute events overnight Vitals, medications, blood work and imaging reviewed in the chart. NAD. NCAT. MMM. Normal respiratory effort. RRR. Abd ND. No C/C/E. No rash. AAO. Normal speech. NEGRO/ ATN, improving CKD III with proteinuria -No NSAIDs HTN with CKD/ CHF -Continue Coreg Diastolic CHF, A/C -Continue Furosemide -Metolazone X1 DM II with CKD -RISS -Continue Lantus Case reviewed with Dr. Oakes
[2021-10-12] MEDS: ATORVASTATIN 20 MG TAB PO SCH (21:19)
[2021-10-13 05:46] LABS: Absolute Lymphocytes (CBC) 3.5 K/uL (0.7-4.9); Hematocrit 26.1 % (39.6-49.0); Lymphocytes % 24.3 % (15.3-44.8); MCV 91.6 fL (80-100); MPV 8.8 fL (7.6-11.3); RBC Red Blood Cell Count 2.85 M/uL (4.33-5.43)
[2021-10-13 05:58] LABS: Albumin 2.5 g/dL (3.4-5.0); Bilirubin Total 0.4 mg/dL (0.2-1.0); Potassium 3.9 mmol/L (3.5-5.1)
[2021-10-13] MEDS: carvediloL 25 MG TAB PO SCH ×2 (06:25→17:50)
[2021-10-13 06:33] VITALS: BMI 28.4
[2021-10-13] MEDS: INSULIN -REGULAR HUMAN 50 UNIT/0.5 ML ML SQ SCH ×4 (07:30→21:00)
[2021-10-13] MEDS: FUROSEMIDE 20 MG/ 2ML VIAL IV SCH ×2 (09:07→17:51)
[2021-10-13] MEDS: HEPARIN 5000 UNIT/ML 1 ML VIAL SQ SCH ×2 (09:07→21:04)
[2021-10-13] MEDS: AZITHROMYCIN IV 500 MG in NA CHLORIDE 0.9% 250 ML IVPB SCH (09:07)
[2021-10-13] MEDS: CEFTRIAXONE 1,000 MG in NA CHLORIDE 0.9% 50 ML IVPB SCH (09:07)
[2021-10-13] MEDS: GLUCERNA SHAKE 237 ML CAN PO SCH ×2 (09:08→21:00)
[2021-10-13] MEDS: AMLODIPINE 5 MG TAB PO SCH (09:08)
[2021-10-13] MEDS: INSULIN GLARGINE 100 UNIT/ML SQ SCH (09:12)
[2021-10-13] MEDS ORDERED: levoFLOXacin 750 MG TAB PO ONE (13:00)
--- NOTE | 2021-10-13 17:13 | P.PN ---
Date of Service: 10/13/21 Vital Signs Temp Pulse Resp BP Pulse Ox 97.5 F 57 16 152/69 H 96 10/13/21 16:00 10/13/21 16:00 10/13/21 16:00 10/13/21 16:00 10/13/21 16:00 Medications Acetaminophen (Acetaminophen 500 Mg Tab) 500 mg PO Q6H PRN PRN Reason: Pain scale 2-4 (Mild) Last Admin: 10/08/21 04:13 Dose: 500 mg Documented by: Amlodipine Besylate (Amlodipine 5 Mg Tab) 5 mg PO DAILY COUNTS INCLUDE 234 BEDS AT THE [facility] Last Admin: 10/13/21 09:08 Dose: 5 mg Documented by: Atorvastatin Calcium (Atorvastatin 20 Mg Tab) 20 mg PO BEDTIME COUNTS INCLUDE 234 BEDS AT THE [facility] Last Admin: 10/12/21 21:19 Dose: 20 mg Documented by: Carvedilol (Carvedilol 25 Mg Tab) 25 mg PO BID 6AM 6PM COUNTS INCLUDE 234 BEDS AT THE [facility] Last Admin: 10/13/21 06:25 Dose: 25 mg Documented by: Enteral Nutritional Formula (Glucerna Shake 237 Ml Can) 237 ml PO BID COUNTS INCLUDE 234 BEDS AT THE [facility] Last Admin: 10/13/21 09:08 Dose: 237 ml Documented by: Furosemide (Furosemide 20 Mg/ 2ml Vial) 20 mg IV BIDL COUNTS INCLUDE 234 BEDS AT THE [facility] Last Admin: 10/13/21 09:07 Dose: 20 mg Documented by: Heparin Sodium (Porcine) (Heparin 5000 Unit/Ml 1 Ml Vial) 5,000 unit SQ Q12HR COUNTS INCLUDE 234 BEDS AT THE [facility] Last Admin: 10/13/21 09:07 Dose: 5,000 unit Documented by: Insulin Glargine (Insulin Glargine 100 Unit/Ml) 15 unit SQ DAILY COUNTS INCLUDE 234 BEDS AT THE [facility] Last Admin: 10/13/21 09:12 Dose: 15 unit Documented by: Insulin Human Regular (Insulin -Regular Human 50 Unit/0.5 Ml Ml) 0 unit SQ ACHS COUNTS INCLUDE 234 BEDS AT THE [facility]; Protocol Last Admin: 10/13/21 16:26 Dose: Not Given Documented by: Levofloxacin (Levofloxacin 500 Mg Tab) 500 mg PO Q48H COUNTS INCLUDE 234 BEDS AT THE [facility] Ondansetron HCl (Ondansetron 4 Mg/2 Ml Vial) 4 mg IV Q6HP PRN PRN Reason: NAUSEA / VOMITING Sodium Chloride (Flush Normal Saline 10 Ml) 10 ml IV BID COUNTS INCLUDE 234 BEDS AT THE [facility] Last Admin: 10/13/21 09:08 Dose: 10 ml Documented by: Microbiology Results 10/07/21 18:55 Blood - Blood Aerobic Blood Culture - Final No growth in 5 days. 10/07/21 18:55 Blood - Blood Anaerobic Blood Culture - Final No growth in 5 days. 10/07/21 18:40 Blood - Blood Aerobic Blood Culture - Final No growth in 5 days. 10/07/21 18:40 Blood - Blood Anaerobic Blood Culture - Final No growth in 5 days. Assessment/ Plan: Nephrology Improving dyspnea No chest pain No acute events overnight Vitals, medications, blood work and imaging reviewed in the chart. NAD. NCAT. MMM. Normal respiratory effort. RRR. Abd ND. No C/C/E. No rash. AAO. Normal speech. NEGRO/ ATN, improving CKD III with proteinuria -No NSAIDs HTN with CKD/ CHF -Continue Coreg Diastolic CHF, A/C -Continue Furosemide DM II with CKD -RISS -Continue Lantus EXAM DESCRIPTION: RAD - Chest Single View - 10/12/2021 2:54 pm CLINICAL HISTORY: pneumonia COMPARISON: October 10 portable TECHNIQUE: AP portable chest image was obtained 10/12/2021 2:54 pm . FINDINGS: Lung volume is improved from the comparison study. Interstitial and patchy alveolar opacities do appear to have improved even when adjusting for the better inspiratory effort. No new or progressive finding. No significant failure or volume overload. Heart size is smaller than on prior study. No measurable pleural effusion and no pneumothorax. No acute bony abnormality seen. No acute aortic findings suspected. IMPRESSION: Improved aeration of the lung souza since October 10 imaging. No new or progressive finding.
--- NOTE | 2021-10-13 18:54 | P.PN ---
Subjective Date of Service: 10/13/21 Chief Complaint: Sepsis, pneumonia Subjective: No new changes Physical Examination - Vital Signs Temperature: 97.5 F Blood Pressure: 152/69 Pulse: 57 Respirations: 16 Pulse Ox (%): 96 - Studies Microbiology Data (last 24 hrs): 10/07/21 18:55 Blood - Blood Aerobic Blood Culture - Final No growth in 5 days. 10/07/21 18:55 Blood - Blood Anaerobic Blood Culture - Final No growth in 5 days. 10/07/21 18:40 Blood - Blood Aerobic Blood Culture - Final No growth in 5 days. 10/07/21 18:40 Blood - Blood Anaerobic Blood Culture - Final No growth in 5 days. Assessment And Plan - Plan # Severe Sepsis likely secondary to Multifocal Pneumonia # Acute Hypoxic Respiratory Failure secondary to Multifocal Pneumonia and Decompensated Heart Failure He met SIRS criteria based on RR > 20 breaths/min and WBC > 12,000 and the suspected source is multifocal pneumonia. Severe sepsis is suspected due to concern for tissue hypoperfusion/organ dysfunction based on a creatinine >2.0 mg/dL (without ESRD). - ABG = pH 7.38, PCO2 33.7, PO2 72.1 - V/Q scan = "very low probability for pulmonary embolism." - Procalcitonin = 0.22 - Supplemental oxygen to maintain SpO2 > 92 % - Wean as tolerated - Encouraged incentive spirometry - Code Sepsis was activated in the ED - The diagnoses in this note should be considered an addendum to Rudolph Rivas [employer]'s H&P - Time Zero should remain at 18:23 on 10/07/2021 when first diagnosed with sepsis by Lolly Dong NP - Sepsis order set was initiated - Initial Lactate was 1.1 - Blood cultures drawn before antibiotics were given - Broad spectrum antibiotics started: Ceftriaxone + Azithromycin - In regards to fluids: - 30 mL/kg of IV fluids was not administered given SBP > 90, MAP > 65, lactic acid < 4, and concern for volume overload from CHF exacerbation - Ordered repeat COVID-19 as well as RSV/Influenza swabs given persistent hypoxia, which were negative - Consulted Pulmonary Medicine - recommendations appreciated - Leukocytosis is improving, but still requiring high doses of oxygen # Acute on Chronic Decompensated Congestive Heart Failure with Preserved Ejection Fraction - Consult Cardiology and spoke with Dr. Guerrero - recommendations appreciated - Transthoracic echocardiogram = "normal left ventricular ejection fraction 55- 60%. normal diastolic function. mild mitral and tricuspid regurgitation." - Diuresis with IV furosemide for today - Daily weights - Strict I/O - Cardiac diet, 1.5 L fluid restriction, 2 g Na restriction # KDIGO Stage I Acute Kidney Injury on Chronic Kidney Disease Stage III, improving Differential diagnoses includes cardiorenal syndrome +/- sepsis-induced NEGRO. - Consult Nephrology and spoke with Dr. Rios - recommendations appreciated - Creatinine = 3.02 -> 2.96 -> 2.99 -> 3.18 -> 2.79 -> 2.55 -> 2.19 (baseline creatinine ~1.7) - Urinalysis = 20-50 bacteria - Renal ultrasound = "tiny echogenic foci in the right kidney could be tiny stones. No hydronephrosis or solid renal mass." - IV diuretics as mentioned above - Monitor creatinine and urine output - Renally dose medications # Type II Diabetes Mellitus, insulin-dependent - Continue current insulin regimen # Hypertension -Continue home carvedilol, amlodipine - Hold home losartan-hydrochlorothiazide given NEGRO # Hyperlipidemia - Continue home atorvastatin Physician Review: Patient Assessed, Agree with Above Assessment and Plan
[2021-10-13] MEDS: ATORVASTATIN 20 MG TAB PO SCH (21:04)
[2021-10-14 04:42] LABS: Magnesium 2.1 mg/dL (1.8-2.4); Potassium 3.8 mmol/L (3.5-5.1)
[2021-10-14 04:45] LABS: Absolute Lymphocytes (CBC) 3.4 K/uL (0.7-4.9); Hematocrit 27.7 % (39.6-49.0); Lymphocytes % 24.4 % (15.3-44.8); MCV 91.4 fL (80-100); RBC Red Blood Cell Count 3.03 M/uL (4.33-5.43)
[2021-10-14 04:47] LABS: Albumin 2.5 g/dL (3.4-5.0); Bilirubin Total 0.4 mg/dL (0.2-1.0); Phosphorus 3.6 mg/dL (2.5-4.9); Protein, Total 7.1 g/dL (6.4-8.2); Uric Acid 13.9 mg/dL (3.5-7.2)
[2021-10-14] MEDS: carvediloL 25 MG TAB PO SCH (06:33)
[2021-10-14] MEDS: INSULIN -REGULAR HUMAN 50 UNIT/0.5 ML ML SQ SCH (07:30)
[2021-10-14 08:26] VITALS: O2SAT 92
[2021-10-14] MEDS: GLUCERNA SHAKE 237 ML CAN PO SCH (08:59)
[2021-10-14] MEDS: FUROSEMIDE 20 MG/ 2ML VIAL IV SCH (08:59)
[2021-10-14] MEDS: HEPARIN 5000 UNIT/ML 1 ML VIAL SQ SCH (08:59)
[2021-10-14] MEDS: INSULIN GLARGINE 100 UNIT/ML SQ SCH (09:00)
[2021-10-14] MEDS: AMLODIPINE 5 MG TAB PO SCH (09:00)
[2021-10-14 10:04] VITALS: TEMP 97.3
--- NOTE | 2021-10-14 10:55 | P.PN ---
Date of Service: 10/14/21 Nephrology Note: (S) Pt off supplemental O2, denies dyspnea or other acute complaints General: Alert, In no apparent distress HEENT: Atraumatic, Normocephalic, EOMI Neck: Supple Respiratory: Normal air movement, non tachypnec, no rhonchi Cardiovascular: No edema, Regular rate/rhythm Gastrointestinal: Soft and benign, Non-distended Musculoskeletal: No clubbing, No swelling, No contractures Integumentary: No rashes Neurological: Normal speech, Normal affect Laboratory Data (last 24 hrs) Reviewed in EMR Conclusions/Impression: 1. Stage II NEGRO -improved 2. Underlying CKD Stage IIIb 3. Dyspnea unspecified -improved 4. PNA 2nd to unspecified organism 5. Acute pulmonary edema 6. Chronic HTN 7. Hyperuricemia without mention of gout -NEGRO on CKD was likely multifactorial and in the setting of infection, use of max dose ARB in the setting of possibly relatively lower BP at times, other. UA not too impressive, non clean catch specimen. Cr level has peaked and since downward trended. Moderate azotemia, monitor on diuretics. -Cont to hold SHAI inhibitors, will restart as an OP if renal function remains stable -Will switch IV lasix to PO loop diuretic -Elevated uric acid level in the setting of diuretic use, other. Will lower diuretic total dose, will place on Allopurinol -Obtained spot urine study which shows macroalbuminuria presumably from underlying diabetic nephropathy but will need to monitor as OP. Chalo Person MD, [facility]
[2021-10-14] MEDS ORDERED: allopurinoL 100 MG TAB PO SCH (11:30)
--- NOTE | 2021-10-14 12:31 | P.DS ---
Admission Date: 10/07/21 Discharge Date: 10/14/21 Disposition: ROUTINE DISCHARGE Discharge Condition: GOOD Reason for Admission: Sepsis, pneumonia Brief History of Present Illness: 71-year-old male with history of diabetes mellitus type 2insulin-dependent, hypertension, hyperlipidemia, CKD presented to the emergency department for shortness of breath, chills, low-grade fever, lower extremity edema. He has been dealing with lower extremity edema over the course of the last month chills, dyspnea and low-grade fever started on Tuesday. He was evaluated in the emergency department his labs were significant for leukocytosis with a white blood cell count of 23.1 normocytic anemia acute worsening of CKD 3 with baseline GFR in the high 30s to 40 currently down to 22, elevated BNP 2081 his chest x-ray demonstrated findings consistent with interstitial edema though multifocal pneumonia could appear similar. He has SIRS criteria of tachypnea with a respiratory rate of 22, leukocytosis with a white blood cell count of 23.1 as well source of suspected infectionlikely multifocal pneumonia. Patient not hypotensive lactic acid 1.1 he does appear to be volume overloaded for this reason IV fluids were not given. Acute kidney injury may be related to sepsis versus CRS, recent initiation of losartan/hydrochlorothiazide may also be contributing. Will need to admit for further evaluation and management. Hospital Course: Was admitted for respiratory failure management and also suspicion for underlying pneumonia. He had antibiotic therapy given with azithromycin and ceftriaxone and he also had IV diuretic for volume management. He was continued on supplemental oxygen and breathing treatment for management of respiratory distress related issue. Nephrology was consulted and he diuretic adjustment. Over the course of his hospital care he had significant reduction in creatinine and his volume status also improved. His pedal edema resolved and his pulmonary edema resolved. His white cell count did nicely to 13,000 from 19,000 and he was deemed stable for discharge today after he was weaned off oxygen completely. He will complete the course of oral ciprofloxacin for management of pneumonia after he had completed initial 7-day course of azithromycin and ceftriaxone. He will follow-up with nephrology as he has had significant improvement in creatinine from about 3.9 on admission to 2 which is his baseline. He will continue oral diuretic therapy of torsemide at 20 mg daily pending nephrology evaluation and outpatient. Vital Signs/Physical Exam: Temp Pulse Resp BP Pulse Ox 97.3 F 54 15 130/59 L 91 10/14/21 08:00 10/14/21 08:00 10/14/21 08:00 10/14/21 08:00 10/14/21 08:00 General: Alert, Oriented x3 HEENT: Atraumatic, Normocephalic Neck: Supple Cardiovascular: Regular rate/rhythm, Normal S1 S2 Gastrointestinal: Soft and benign Neurological: Normal speech Laboratory Data at Discharge: WBC 13.7 K/uL (4.3-10.9) H 10/14/21 03:41 Hgb 9.6 g/dL (13.6-17.9) L 10/14/21 03:41 Hct 27.7 % (39.6-49.0) L 10/14/21 03:41 Plt Count 423 K/uL (152-406) H 10/14/21 03:41 PT 13.3 SECONDS (9.5-12.5) H 10/07/21 18:40 INR 1.20 10/07/21 18:40 APTT 32.3 SECONDS (24.3-36.9) 10/07/21 18:40 Sodium 141 mmol/L (136-145) 10/14/21 03:41 Potassium 3.8 mmol/L (3.5-5.1) 10/14/21 03:41 BUN 52 mg/dL (7-18) H 10/14/21 03:41 Creatinine 2.23 mg/dL (0.55-1.3) H 10/14/21 03:41 Glucose 112 mg/dL (74-106) H 10/14/21 03:41 Uric Acid 13.9 mg/dL (3.5-7.2) H 10/14/21 03:41 Phosphorus 3.6 mg/dL (2.5-4.9) 10/14/21 03:41 Magnesium 2.1 mg/dL (1.8-2.4) 10/14/21 03:41 Total Bilirubin 0.4 mg/dL (0.2-1.0) 10/14/21 03:41 AST 31 U/L (15-37) 10/14/21 03:41 ALT 49 U/L (12-78) 10/14/21 03:41 Alkaline Phosphatase 90 U/L (45-117) 10/14/21 03:41 Home Medications: Amlodipine [Norvasc*] 1 tab PO DAILY 10/07/21 Atorvastatin Calcium 1 tab PO BEDTIME 10/07/21 Carvedilol [Coreg] 1 tab PO BID 10/07/21 Dulaglutide [Trulicity] 1.5 mg SQ DIRECTED 10/07/21 Insulin Glargine,Hum.rec.anlog [Lantus Solostar] 32 units SQ DAILY 10/07/21 Torsemide [Demadex*] 20 mg PO DAILY 30 Days #30 tab 10/14/21 allopurinoL [Zyloprim*] 200 mg PO DAILY 30 Days #30 tab 10/14/21 levoFLOXacin [Levaquin*] 500 mg PO Q48H 3 Days #3 tab 10/14/21 New Medications: Torsemide [Demadex*] 20 mg PO DAILY 30 Days #30 tab levoFLOXacin [Levaquin*] 500 mg PO Q48H 3 Days #3 tab allopurinoL [Zyloprim*] 200 mg PO DAILY 30 Days #30 tab Diet: AHA Followup: Tara Smith DO [Primary Care Provider] -
[2021-10-14 13:09] VITALS: BP 145/69
[2021-10-15] MEDS ORDERED: TORSEMIDE 20 MG TAB PO SCH (09:00)
[2021-10-15] MEDS ORDERED: levoFLOXacin 500 MG TAB PO SCH (13:00)
== END 2021-10-14 13:41 | disposition home or self-care (01) | DRG 871 ==
LOC: ER 15:44 → ERHOLD 19:20 → 2ND 21:52
PROVIDERS: ADMIT Internal Medicine; ATTEND Internal Medicine
PROC: 5A0935A Assistance with Respiratory Ventilation, Less than 24 Consecutive Hours, High Flow/Velocity Cannula (ICD-10-PCS; principal; 2021-10-09)
DX: A41.9 Sepsis, unspecified organism (principal); J18.9 Pneumonia, unspecified organism; J96.01 Acute respiratory failure with hypoxia; I50.33 Acute on chronic diastolic (congestive) heart failure; N17.0 Acute kidney failure with tubular necrosis; I13.0 Hypertensive heart and chronic kidney disease with heart failure and stage 1 through stage 4 chronic kidney disease, or unspecified chronic kidney disease; R65.20 Severe sepsis without septic shock; E11.22 Type 2 diabetes mellitus with diabetic chronic kidney disease; E78.5 Hyperlipidemia, unspecified; N18.32 Chronic kidney disease, stage 3b; E87.5 Hyperkalemia; E79.0 Hyperuricemia without signs of inflammatory arthritis and tophaceous disease; E11.21 Type 2 diabetes mellitus with diabetic nephropathy; E11.65 Type 2 diabetes mellitus with hyperglycemia; Z79.4 Long term (current) use of insulin; Z20.822 Contact with and (suspected) exposure to COVID-19
CPT/HCPCS: 36415; 71045; 76770; 78582; 80048; 80053; 81015; 82043; 82570; 82805; 82947; 83036; 83605; 83735; 83880; 84100; 84145; 84439; 84443; 84484; 84550; 85025; 85610; 85730; 87040; 87086; 87088; 87804; 87807; 93005; 93306; 94002; 94003; 94010; 94760; 96365; 96368; 99285; A9540; A9558; J0456; J1644; J1815; J1940; J7050; U0003

== ENCOUNTER 2022-08-27 09:20 | Inpatient (IN) | payer OTHER ==
--- OUTSIDE RECORDS SUMMARY | 2022-08-27 09:25 | XMS REPORT | Continuity of Care Document ---
:1950 Author Organization [facility] t Address [address]. [address] [place] [address] Care Team Providers Name Role Phone Tara Smith Attending Clinician Unavailable Mic Granados Attending Clinician Unavailable Taylor Merino Attending Clinician Unavailable Problems Condition Condition Condition Status Onset Resolution Last Treating Co mments Source Name Details Category Date Date Treatment Clinician Date [id number] Leukocytos Problem Co mmon is, Spirit unspecifie - [facility] type [facility] [id number] Mixed Problem Common hyperlipid Spirit emia [facility] [id number] Benign Problem Common essential Spirit tremor [facility] Diabetes Diabetes Problem Commo n mellitus DMII Spirit without without - [facility] complicati complicati [facility] on [facility] [id number] Uncontroll Problem Co mmon ed type 2 Spirit diabetes - [facility] mellitus [facility] hyperglyce [facility] [id number] Essential Problem Comm on hypertensi Spirit on [facility] Hypertensi Hypertensi Problem C ommon on on [facility] Seasonal Seasonal Problem Commo n allergy allergies [facility] [id number] Muscle Problem Common cramps [facility] [id number] Lymphocyto Problem Com mon sis [facility] Kidney Kidney Problem Common stone stone [facility] [id number] [place] [address] (BMI [facility] 30.0-34.9) [facility] [id number] Vitamin D Problem Comm on deficiency [facility] [id number] Abnormal Problem Commo n renal [facility] function [facility] [id number] Peripheral Problem Co mmon edema [facility] Allergies, Adverse Reactions, Alerts This patient has no known allergies or adverse reactions. Social History Social Habit Start Date Stop Date Quantity Comments Source History of Tobacco Use Co mmon [facility] Sex Assigned At Com mon [facility] Smoking Status Start Date Stop Date Source Never Smoker Common [facility] Medications Ordered Filled Start Stop Current Ordering Indication Dosage Frequency Signature Comments Components Source Medication Medication Date Date Medication? Clinician (SIG) Name Name Carvedilol Carvedilol No 1{table BID Carvedilol 12.5 MG 12.5 MG 5-12 t_with_ 12.5 MG 00:00: food} Carvedilol Carvedilol No 1{table BID Carvedilol 25 MG 25 MG 5-12 t_with_ 25 MG 00:00: food} 00 Metoprolol Metoprolol 2019-0 Yes Taylor 1 capsule Common Succinate Succinate 10-22 [facility] 00:00: - [facility] Metoprolol Metoprolol 2019-0 No 1{capsu Metoprolol Succinate Succinate 10-22 le} Succinate 25 MG 25 MG 00:00: 25 MG 00 Metoprolol Metoprolol 2020-0 No 1{capsu Metoprolol Succinate Succinate 10-22 le} Succinate 25 MG 25 MG 00:00: 25 MG 00 Metoprolol Metoprolol 2020-0 No 1{capsu Metoprolol Succinate Succinate 10-22 le} Succinate 25 MG 25 MG 00:00: 25 MG 00 Metoprolol Metoprolol 2020-0 No 1{capsu Metoprolol Succinate Succinate 10-22 le} Succinate 25 MG 25 MG 00:00: 25 MG 00 Metoprolol Metoprolol 2020-0 No 1{capsu Metoprolol Succinate Succinate 8 le} Succinate 25 MG 25 MG 00:00: 25 MG 00 Metoprolol Metoprolol 2020-0 No 1{capsu Metoprolol Succinate Succinate 8-04 le} Succinate 25 MG 25 MG 00:00: 25 MG 00 Metoprolol Metoprolol 0 No 1{capsu Metoprolol Succinate Succinate 8-04 le} Succinate 25 MG 25 MG 00:00: 25 MG 00 Metoprolol Metoprolol 0 No 1{capsu Metoprolol Succinate Succinate 8-04 le} Succinate 25 MG 25 MG 00:00: 25 MG 00 Metoprolol Metoprolol No 1{capsu Metoprolol Succinate Succinate 804 le} Succinate 25 MG 25 MG 00:00: 25 MG 00 Metoprolol Metoprolol No 1{capsu Metoprolol Succinate Succinate 804 le} Succinate 25 MG 25 MG 00:00: 25 MG 00 Metoprolol Metoprolol No 1{capsu Metoprolol Succinate Succinate 8-04 le} Succinate 25 MG 25 MG 00:00: 25 MG 00 Metoprolol Metoprolol No 1{capsu Metoprolol Succinate Succinate 804 le} Succinate 25 MG 25 MG 00:00: 25 MG 00 Amlodipine Amlodipine Yes Taylor 1 tablet Common Besylate Besylate [facility] lu [facility] Losartan Losartan Yes Taylor 1 tablet Co mmon Potassium-H Potassium-H [facility] CTZ CTZ [facility] Novolin Novolin Yes Taylor as Common 70/30 70/30 Millender directed Spir it [facility] hydroCHLORO hydroCHLORO No 1{table QD hydroCHLOR thiazide 25 thiazide 25 t_in_th Othiazide MG MG e_morni 25 MG ng} amLODIPine amLODIPine No 1{table QD amLODIPine Besylate 10 Besylate 10 t} Besylate MG MG 10 MG Lantus Lantus No QD Lantus SoloStar SoloStar SoloStar 100 UNIT/ML 100 UNIT/ML 100 UNIT/ML Trulicity Trulicity No Trulicity 0.75 0.75 0.75 MG/0.5ML MG/0.5ML MG/0.5ML Losartan Losartan No 1{table QD Losartan Potassium-H Potassium-H t} Potassium- CTZ 100-25 CTZ 100-25 HCTZ MG MG 100-25 MG Propranolol Propranolol No 1{capsu QD Propranolo HCl ER 60 HCl ER 60 le} l HCl ER MG MG 60 MG HumuLIN N HumuLIN N No HumuLIN N 100 UNIT/ML 100 UNIT/ML 100 UNIT/ML Trulicity Trulicity No Trulicity 0.75 0.75 0.75 MG/0.5ML MG/0.5ML MG/0.5ML Propranolol Propranolol No 1{capsu QD Propranolo HCl ER 60 HCl ER 60 le} l HCl ER MG MG 60 MG Atorvastati Atorvastati No 1{table QD Atorvastat n Calcium n Calcium t_at_be in Calcium 20 MG 20 MG dtime} 20 MG Lantus Lantus No QD Lantus SoloStar SoloStar SoloStar 100 UNIT/ML 100 UNIT/ML 100 UNIT/ML Trulicity Trulicity No Trulicity 1.5 1.5 1.5 MG/0.5ML MG/0.5ML MG/0.5ML hydroCHLORO hydroCHLORO No 1{table QD hydroCHLOR thiazide 25 thiazide 25 t_in_th Othiazide MG MG e_morni 25 MG ng} amLODIPine amLODIPine No 1{table QD amLODIPine Besylate 10 Besylate 10 t} Besylate MG MG 10 MG Losartan Losartan No 1{table QD Losartan Potassium-H Potassium-H t} Potassium- CTZ 100-25 CTZ 100-25 HCTZ MG MG 100-25 MG HumuLIN N HumuLIN N No HumuLIN N 100 UNIT/ML 100 UNIT/ML 100 UNIT/ML Trulicity Trulicity No Trulicity 0.75 0.75 0.75 MG/0.5ML MG/0.5ML MG/0.5ML Carvedilol Carvedilol No 1{table BID Carvedilol 25 MG 25 MG t_with_ 25 MG food} Atorvastati Atorvastati No 1{table QD Atorvastat n Calcium n Calcium t_at_be in Calcium 20 MG 20 MG dtime} 20 MG Lantus Lantus No QD Lantus SoloStar SoloStar SoloStar 100 UNIT/ML 100 UNIT/ML 100 UNIT/ML amLODIPine amLODIPine No 1{table QD amLODIPine Besylate 10 Besylate 10 t} Besylate MG MG 10 MG Losartan Losartan No 1{table QD Losartan Potassium-H Potassium-H t} Potassium- CTZ 100-25 CTZ 100-25 HCTZ MG MG 100-25 MG HumuLIN N HumuLIN N No HumuLIN N 100 UNIT/ML 100 UNIT/ML 100 UNIT/ML Propranolol Propranolol No 1{capsu QD Propranolo HCl ER 60 HCl ER 60 le} l HCl ER MG MG 60 MG hydroCHLORO hydroCHLORO No 1{table QD hydroCHLOR thiazide 25 thiazide 25 t_in_th Othiazide MG MG e_morni 25 MG ng} Trulicity Trulicity No Trulicity 1.5 1.5 1.5 MG/0.5ML MG/0.5ML MG/0.5ML Trulicity Trulicity No Trulicity 0.75 0.75 0.75 MG/0.5ML MG/0.5ML MG/0.5ML Carvedilol Carvedilol No 1{table BID Carvedilol 25 MG 25 MG t_with_ 25 MG food} Atorvastati Atorvastati No 1{table QD Atorvastat n Calcium n Calcium t_at_be in Calcium 20 MG 20 MG dtime} 20 MG Lantus Lantus No QD Lantus SoloStar SoloStar SoloStar 100 UNIT/ML 100 UNIT/ML 100 UNIT/ML hydroCHLORO hydroCHLORO No 1{table QD hydroCHLOR thiazide 25 thiazide 25 t_in_th Othiazide MG MG e_morni 25 MG ng} Losartan Losartan No 1{table QD Losartan Potassium-H Potassium-H t} Potassium- CTZ 100-25 CTZ 100-25 HCTZ MG MG 100-25 MG HumuLIN N HumuLIN N No HumuLIN N 100 UNIT/ML 100 UNIT/ML 100 UNIT/ML Propranolol Propranolol No 1{capsu QD Propranolo HCl ER 60 HCl ER 60 le} l HCl ER MG MG 60 MG Trulicity Trulicity No Trulicity 1.5 1.5 1.5 MG/0.5ML MG/0.5ML MG/0.5ML amLODIPine amLODIPine No 1{table QD amLODIPine Besylate 10 Besylate 10 t} Besylate MG MG 10 MG Trulicity Trulicity No Trulicity 0.75 0.75 0.75 MG/0.5ML MG/0.5ML MG/0.5ML Carvedilol Carvedilol No 1{table BID Carvedilol 25 MG 25 MG t_with_ 25 MG food} Atorvastati Atorvastati No 1{table QD Atorvastat n Calcium n Calcium t_at_be in Calcium 20 MG 20 MG dtime} 20 MG Lantus Lantus No QD Lantus SoloStar SoloStar SoloStar 100 UNIT/ML 100 UNIT/ML 100 UNIT/ML hydroCHLORO hydroCHLORO No 1{table QD hydroCHLOR thiazide 25 thiazide 25 t_in_th Othiazide MG MG e_morni 25 MG ng} Losartan Losartan No 1{table QD Losartan Potassium-H Potassium-H t} Potassium- CTZ 100-25 CTZ 100-25 HCTZ MG MG 100-25 MG HumuLIN N HumuLIN N No HumuLIN N 100 UNIT/ML 100 UNIT/ML 100 UNIT/ML Propranolol Propranolol No 1{capsu QD Propranolo HCl ER 60 HCl ER 60 le} l HCl ER MG MG 60 MG Trulicity Trulicity No Trulicity 1.5 1.5 1.5 MG/0.5ML MG/0.5ML MG/0.5ML amLODIPine amLODIPine No 1{table QD amLODIPine Besylate 10 Besylate 10 t} Besylate MG MG 10 MG Atorvastati Atorvastati No 1{table QD Atorvastat n Calcium n Calcium t_at_be in Calcium 20 MG 20 MG dtime} 20 MG Levofloxaci Levofloxaci No 1{table QD Levofloxac n 500 MG n 500 MG t} in 500 MG Carvedilol Carvedilol No 1{table BID Carvedilol 25 MG 25 MG t_with_ 25 MG food} Allopurinol Allopurinol No 1{table BID Allopurino 100 MG 100 MG t} l 100 MG Lantus Lantus No QD Lantus SoloStar SoloStar SoloStar 100 UNIT/ML 100 UNIT/ML 100 UNIT/ML HumuLIN N HumuLIN N No HumuLIN N 100 UNIT/ML 100 UNIT/ML 100 UNIT/ML Trulicity Trulicity No Trulicity 1.5 1.5 1.5 MG/0.5ML MG/0.5ML MG/0.5ML Torsemide Torsemide No Torsemide 20 MG 20 MG 20 MG hydroCHLORO hydroCHLORO No 1{table QD hydroCHLOR thiazide 25 thiazide 25 t_in_th Othiazide MG MG e_morni 25 MG ng} Losartan Losartan No 1{table QD Losartan Potassium-H Potassium-H t} Potassium- CTZ 100-25 CTZ 100-25 HCTZ MG MG 100-25 MG Propranolol Propranolol No 1{capsu QD Propranolo HCl ER 60 HCl ER 60 le} l HCl ER MG MG 60 MG amLODIPine amLODIPine No 1{table QD amLODIPine Besylate 10 Besylate 10 t} Besylate MG MG 10 MG Trulicity Trulicity No Trulicity 0.75 0.75 0.75 MG/0.5ML MG/0.5ML MG/0.5ML Atorvastati Atorvastati No 1{table QD Atorvastat n Calcium n Calcium t_at_be in Calcium 20 MG 20 MG dtime} 20 MG hydroCHLORO hydroCHLORO No 1{table QD hydroCHLOR thiazide 25 thiazide 25 t_in_th Othiazide MG MG e_morni 25 MG ng} HumuLIN N HumuLIN N No HumuLIN N 100 UNIT/ML 100 UNIT/ML 100 UNIT/ML Trulicity Trulicity No Trulicity 1.5 1.5 1.5 MG/0.5ML MG/0.5ML MG/0.5ML Spironolact Spironolact No 1{table QD Spironolac one-HCTZ one-HCTZ t} tone-HCTZ 25-25 MG 25-25 MG 25-25 MG Trulicity Trulicity No Trulicity 0.75 0.75 0.75 MG/0.5ML MG/0.5ML MG/0.5ML Lantus Lantus No QD Lantus SoloStar SoloStar SoloStar 100 UNIT/ML 100 UNIT/ML 100 UNIT/ML Losartan Losartan No 1{table QD Losartan Potassium-H Potassium-H t} Potassium- CTZ 100-25 CTZ 100-25 HCTZ MG MG 100-25 MG Allopurinol Allopurinol No 1{table BID Allopurino 100 MG 100 MG t} l 100 MG amLODIPine amLODIPine No 1{table QD amLODIPine Besylate 10 Besylate 10 t} Besylate MG MG 10 MG Carvedilol Carvedilol No 1{table BID Carvedilol 25 MG 25 MG t_with_ 25 MG food} Levofloxaci Levofloxaci No 1{table QD Levofloxac n 500 MG n 500 MG t} in 500 MG Propranolol Propranolol No 1{capsu QD Propranolo HCl ER 60 HCl ER 60 le} l HCl ER MG MG 60 MG Torsemide Torsemide No Torsemide 20 MG 20 MG 20 MG Atorvastati Atorvastati No 1{table QD Atorvastat n Calcium n Calcium t_at_be in Calcium 20 MG 20 MG dtime} 20 MG hydroCHLORO hydroCHLORO No 1{table QD hydroCHLOR thiazide 25 thiazide 25 t_in_th Othiazide MG MG e_morni 25 MG ng} HumuLIN N HumuLIN N No HumuLIN N 100 UNIT/ML 100 UNIT/ML 100 UNIT/ML Trulicity Trulicity No Trulicity 1.5 1.5 1.5 MG/0.5ML MG/0.5ML MG/0.5ML Spironolact Spironolact No 1{table QD Spironolac one-HCTZ one-HCTZ t} tone-HCTZ 25-25 MG 25-25 MG 25-25 MG Trulicity Trulicity No Trulicity 0.75 0.75 0.75 MG/0.5ML MG/0.5ML MG/0.5ML Lantus Lantus No QD Lantus SoloStar SoloStar SoloStar 100 UNIT/ML 100 UNIT/ML 100 UNIT/ML Losartan Losartan No 1{table QD Losartan Potassium-H Potassium-H t} Potassium- CTZ 100-25 CTZ 100-25 HCTZ MG MG 100-25 MG Allopurinol Allopurinol No 1{table BID Allopurino 100 MG 100 MG t} l 100 MG amLODIPine amLODIPine No 1{table QD amLODIPine Besylate 10 Besylate 10 t} Besylate MG MG 10 MG Carvedilol Carvedilol No 1{table BID Carvedilol 25 MG 25 MG t_with_ 25 MG food} Levofloxaci Levofloxaci No 1{table QD Levofloxac n 500 MG n 500 MG t} in 500 MG Propranolol Propranolol No 1{capsu QD Propranolo HCl ER 60 HCl ER 60 le} l HCl ER MG MG 60 MG Torsemide Torsemide No Torsemide 20 MG 20 MG 20 MG Atorvastati Atorvastati No 1{table QD Atorvastat n Calcium n Calcium t_at_be in Calcium 20 MG 20 MG dtime} 20 MG hydroCHLORO hydroCHLORO No 1{table QD hydroCHLOR thiazide 25 thiazide 25 t_in_th Othiazide MG MG e_morni 25 MG ng} HumuLIN N HumuLIN N No HumuLIN N 100 UNIT/ML 100 UNIT/ML 100 UNIT/ML Trulicity Trulicity No Trulicity 1.5 1.5 1.5 MG/0.5ML MG/0.5ML MG/0.5ML Spironolact Spironolact No 1{table QD Spironolac one-HCTZ one-HCTZ t} tone-HCTZ 25-25 MG 25-25 MG 25-25 MG Trulicity Trulicity No Trulicity 0.75 0.75 0.75 MG/0.5ML MG/0.5ML MG/0.5ML Lantus Lantus No QD Lantus SoloStar SoloStar SoloStar 100 UNIT/ML 100 UNIT/ML 100 UNIT/ML Losartan Losartan No 1{table QD Losartan Potassium-H Potassium-H t} Potassium- CTZ 100-25 CTZ 100-25 HCTZ MG MG 100-25 MG Allopurinol Allopurinol No 1{table BID Allopurino 100 MG 100 MG t} l 100 MG amLODIPine amLODIPine No 1{table QD amLODIPine Besylate 10 Besylate 10 t} Besylate MG MG 10 MG Carvedilol Carvedilol No 1{table BID Carvedilol 25 MG 25 MG t_with_ 25 MG food} Levofloxaci Levofloxaci No 1{table QD Levofloxac n 500 MG n 500 MG t} in 500 MG Propranolol Propranolol No 1{capsu QD Propranolo HCl ER 60 HCl ER 60 le} l HCl ER MG MG 60 MG Torsemide Torsemide No Torsemide 20 MG 20 MG 20 MG Atorvastati Atorvastati No 1{table QD Atorvastat n Calcium n Calcium t_at_be in Calcium 20 MG 20 MG dtime} 20 MG hydroCHLORO hydroCHLORO No 1{table QD hydroCHLOR thiazide 25 thiazide 25 t_in_th Othiazide MG MG e_morni 25 MG ng} HumuLIN N HumuLIN N No HumuLIN N 100 UNIT/ML 100 UNIT/ML 100 UNIT/ML Trulicity Trulicity No Trulicity 1.5 1.5 1.5 MG/0.5ML MG/0.5ML MG/0.5ML Spironolact Spironolact No 1{table QD Spironolac one-HCTZ one-HCTZ t} tone-HCTZ 25-25 MG 25-25 MG 25-25 MG Trulicity Trulicity No Trulicity 0.75 0.75 0.75 MG/0.5ML MG/0.5ML MG/0.5ML Lantus Lantus No QD Lantus SoloStar SoloStar SoloStar 100 UNIT/ML 100 UNIT/ML 100 UNIT/ML Losartan Losartan No 1{table QD Losartan Potassium-H Potassium-H t} Potassium- CTZ 100-25 CTZ 100-25 HCTZ MG MG 100-25 MG Allopurinol Allopurinol No 1{table BID Allopurino 100 MG 100 MG t} l 100 MG amLODIPine amLODIPine No 1{table QD amLODIPine Besylate 10 Besylate 10 t} Besylate MG MG 10 MG Carvedilol Carvedilol No 1{table BID Carvedilol 25 MG 25 MG t_with_ 25 MG food} Levofloxaci Levofloxaci No 1{table QD Levofloxac n 500 MG n 500 MG t} in 500 MG Propranolol Propranolol No 1{capsu QD Propranolo HCl ER 60 HCl ER 60 le} l HCl ER MG MG 60 MG Torsemide Torsemide No Torsemide 20 MG 20 MG 20 MG Atorvastati Atorvastati No 1{table QD Atorvastat n Calcium n Calcium t_at_be in Calcium 20 MG 20 MG dtime} 20 MG hydroCHLORO hydroCHLORO No 1{table QD hydroCHLOR thiazide 25 thiazide 25 t_in_th Othiazide MG MG e_morni 25 MG ng} HumuLIN N HumuLIN N No HumuLIN N 100 UNIT/ML 100 UNIT/ML 100 UNIT/ML Trulicity Trulicity No Trulicity 1.5 1.5 1.5 MG/0.5ML MG/0.5ML MG/0.5ML Spironolact Spironolact No 1{table QD Spironolac one-HCTZ one-HCTZ t} tone-HCTZ 25-25 MG 25-25 MG 25-25 MG Trulicity Trulicity No Trulicity 0.75 0.75 0.75 MG/0.5ML MG/0.5ML MG/0.5ML Lantus Lantus No QD Lantus SoloStar SoloStar SoloStar 100 UNIT/ML 100 UNIT/ML 100 UNIT/ML Losartan Losartan No 1{table QD Losartan Potassium-H Potassium-H t} Potassium- CTZ 100-25 CTZ 100-25 HCTZ MG MG 100-25 MG Allopurinol Allopurinol No 1{table BID Allopurino 100 MG 100 MG t} l 100 MG amLODIPine amLODIPine No 1{table QD amLODIPine Besylate 10 Besylate 10 t} Besylate MG MG 10 MG Carvedilol Carvedilol No 1{table BID Carvedilol 25 MG 25 MG t_with_ 25 MG food} Levofloxaci Levofloxaci No 1{table QD Levofloxac n 500 MG n 500 MG t} in 500 MG Propranolol Propranolol No 1{capsu QD Propranolo HCl ER 60 HCl ER 60 le} l HCl ER MG MG 60 MG Torsemide Torsemide No Torsemide 20 MG 20 MG 20 MG HumuLIN N HumuLIN N No HumuLIN N 100 UNIT/ML 100 UNIT/ML 100 UNIT/ML Propranolol Propranolol No 1{capsu QD Propranolo HCl ER 60 HCl ER 60 le} l HCl ER MG MG 60 MG Trulicity Trulicity No Trulicity 0.75 0.75 0.75 MG/0.5ML MG/0.5ML MG/0.5ML Losartan Losartan No 1{table QD Losartan Potassium-H Potassium-H t} Potassium- CTZ 100-25 CTZ 100-25 HCTZ MG MG 100-25 MG amLODIPine amLODIPine No 1{table QD amLODIPine Besylate 10 Besylate 10 t} Besylate MG MG 10 MG Lantus Lantus No QD Lantus SoloStar SoloStar SoloStar 100 UNIT/ML 100 UNIT/ML 100 UNIT/ML hydroCHLORO hydroCHLORO No 1{table QD hydroCHLOR thiazide 25 thiazide 25 t_in_th Othiazide MG MG e_morni 25 MG ng} Immunizations Ordered Immunization Filled Immunization Date Status Commen ts Source Name Name FLUZONE HIGH DOSE FLUZONE HIGH DOSE 2021-12-03 [facility]pleted [facility] OVER [facility] OVER 65 12:03:00 - [facility] FLUZONE HIGH DOSE FLUZONE HIGH DOSE 2021-12-03 Completed [facility] OVER 65 OVER 65 12:03:00 - [facility] FLUZONE HIGH DOSE FLUZONE HIGH DOSE 2021-12-03 Completed [facility] OVER 65 OVER 65 12:03:00 - [facility] FLUZONE HIGH DOSE FLUZONE HIGH DOSE 2021-12-03 Completed [facility] OVER 65 OVER 65 12:03:00 - [facility] FLUZONE HIGH DOSE FLUZONE HIGH DOSE 2021-12-03 Completed [facility] OVER 65 OVER 65 12:03:00 - [facility] Pneumovax (PPSV23) Pneumovax (PPSV23) 2021-12-03 Completed [facility] 12:02:00 - [facility] Pneumovax (PPSV23) Pneumovax (PPSV23) 2021-12-03 Completed [facility] 12:02:00 - [facility] Pneumovax (PPSV23) Pneumovax (PPSV23) 2021-12-03 Completed [facility] 12:02:00 - [facility] Pneumovax (PPSV23) Pneumovax (PPSV23) 2021-12-03 Completed [facility] 12:02:00 - [facility] Pneumovax (PPSV23) Pneumovax (PPSV23) 2021-12-03 Completed [facility] 12:02:00 [facility] Vital Signs Vital Name Observation Time Observation Value Comments Source height 2021-12-03 11:40:00 65.00 [in_i] [facility] weight 2021-12-03 11:40:00 181.2 [lb_av] [facility] temperature 2021-12-03 11:40:00 98.0 [degF] [facility] bmi 2021-12-03 11:40:00 30.15 kg/m2 [facility] oximetry 2021-12-03 11:40:00 99 % [facility] respiratory rate 2021-12-03 11:40:00 16 /min Comm on [facility] blood pressure 2021-12-03 11:40:00 160 mm[Hg] Common [facility] - systolic [facility] blood pressure 2021-12-03 11:40:00 72 mm[Hg] Common [facility] - diastolic [facility] height 2021-12-03 10:40:00 65.00 [in_i] Common [facility] weight 2021-12-03 10:40:00 181.2 [lb_av] Common [facility] temperature 2021-12-03 10:40:00 98.0 [degF] Common [facility]irit [facility] bmi 2021-12-03 10:40:00 30.15 kg/m2 [facility] oximetry 2021-12-03 10:40:00 99 % [facility] respiratory rate 2021-12-03 10:40:00 16 /min Comm on [facility] blood pressure 2021-12-03 10:40:00 160 mm[Hg] Common [facility] - systolic [facility] blood pressure 2021-12-03 10:40:00 72 mm[Hg] Common [facility] - diastolic [facility] height 2021-10-20 10:20:00 65.00 [in_i] Common [facility] weight 2021-10-20 10:20:00 180.0 [lb_av] Common [facility] temperature 2021-10-20 10:20:00 97.4 [degF] Common [facility]irit [facility] bmi 2021-10-20 10:20:00 29.95 kg/m2 Common [facility] oximetry 2021-10-20 10:20:00 99 % Common [facility] respiratory rate 2021-10-20 10:20:00 16 /min Comm on [facility] blood pressure 2021-10-20 10:20:00 138 mm[Hg] Common [facility] - systolic [facility] blood pressure 2021-10-20 10:20:00 67 mm[Hg] [facility] - diastolic [facility] height 2021-09-10 13:00:00 65.00 [in_i] Common [facility]irit - [facility] weight 2021-09-10 13:00:00 179 [lb_av] [facility] temperature 2021-09-10 13:00:00 97 [degF] [facility] bmi 2021-09-10 13:00:00 29.78 kg/m2 [facility] oximetry 2021-09-10 13:00:00 98 % [facility] respiratory rate 2021-09-10 13:00:00 18 /min Comm on [facility] blood pressure 2021-09-10 13:00:00 138 mm[Hg] Common [facility] - systolic [facility] blood pressure 2021-09-10 13:00:00 64 mm[Hg] [facility] - diastolic [facility] height 2021-08-10 13:00:00 65.00 [in_i] [facility] 2021-08-10 13:00:00 183.4 [lb_av] [facility] temperature 2021-08-10 13:00:00 98.6 [degF] Common [facility] bmi 2021-08-10 13:00:00 30.52 kg/m2 [facility] oximetry 2021-08-10 13:00:00 98 % [facility] respiratory rate 2021-08-10 13:00:00 18 /min Comm on [facility] blood pressure 2021-08-10 13:00:00 147 mm[Hg] [facility] - systolic [facility] blood pressure 2021-08-10 13:00:00 82 mm[Hg] [facility] - diastolic [facility] weight 2021-07-09 09:00:00 183.4 [lb_av] Common [facility] temperature 2021-07-09 09:00:00 97.8 [degF] Common [facility] bmi 2021-07-09 09:00:00 30.52 kg/m2 Common [facility] oximetry 2021-07-09 09:00:00 97 % Common [facility] respiratory rate 2021-07-09 09:00:00 18 /min Comm on [facility] blood pressure 2021-07-09 09:00:00 136 mm[Hg] Common [facility] - systolic [facility] blood pressure 2021-07-09 09:00:00 62 mm[Hg] Common [facility] - diastolic [facility] height 2021-07-09 09:00:00 65.00 [in_i] Common [facility] Procedures This patient has no known procedures. Encounters Start End Encounter Admission Attending Care Care Encounter Source Date/Time Date/Time Type Type Clinicians Facility Department ID 2022-03-03 Outpatient Smith, Na STLMLC ST[facility] [id number] 2 [facility] 09:43:01 [facility] 2021-12-01 Outpatient Smith, Na STLMLC STLMLC [id number] 2 [facility] 10:40:01 [facility] 2021-10-14 Outpatient Smith, Na STLMLC STLMLC [id number] 2 [facility] 14:06:00 [facility] 2021-09-08 Outpatient Smith, Na STLMLC STLMLC [id number] 2 [facility] 16:29:00 [facility] 2021-08-06 Outpatient Smith, Na STLMLC STLMLC [id number] 2 Common 08:41:02 [facility] 2021-07-09 Outpatient Smith, Na STLMLC STLMLC [id number] 2 Common 08:56:01 [facility] 2021-07-08 Outpatient Smith, Na STLMLC STLMLC [id number] 2 Common 11:28:02 [facility] 2021-05-19 Outpatient STLMLC STLMLC [id number] [facility] 08:54:01 [facility] 2021-04-15 Outpatient Mic Granados STLMLC STLMLC [id number] Common 12:04:40 [address] [facility] 2021-04-15 Outpatient Mic Granados STL[facility]C STLMLC [id number] Common 12:00:21 667[address] [facility] 2021-04-15 Outpatient Angelique, STLMLC STLMLC [id number] Common 11:38:16 Taylor [address] [facility] 2021-04-15 Outpatient Angelique, STLMLC STLMLC [id number] Common 11:19:31 Taylor [address] [facility] 2021-04-15 Outpatient Angelique, STLMLC STLMLC [id number] Common 11:05:40 Taylor [address] [facility] 2021-04-15 Outpatient Angelique, STLMLC STLMLC [id number] Common 11:04:10 Taylor [address] [facility] 2022-02-19 2022-02-19 (TEL) STL[facility]C STLMLC [id number] [facility] 00:00:00 00:00:00 [facility] 2022-02-03 2022-02-03 (TEL) STLMLC STLMLC [id number] Co mmon 00:00:00 00:00:00 [facility] 2021-12-03 2021-12-03 SUB ANNUAL STLMLC STLMLC [id number] Common 00:00:00 00:00:00 [facility] 2021-12-03 2021-12-03 OFFICE STLMLC STLMLC [id number] Co mmon 00:00:00 00:00:00 VISIT EST Spir it PT LEVEL 3 - [facility] 2021-10-20 2021-10-20 OFFICE STLMLC STLMLC [id number] Co mmon 00:00:00 00:00:00 [facility] - [facility] LEVEL 4 [facility] 2021-10-14 2021-10-14 (TEL) STLMLC STLMLC [id number] Co mmon 00:00:00 00:00:00 [facility] 2021-10-07 2021-10-07 (TEL) STLMLC STLMLC [id number] Co mmon 00:00:00 00:00:00 [facility] 2021-09-10 2021-09-10 OFFICE STLMLC STLMLC [id number] Co mmon 00:00:00 00:00:00 VISIT EST Spir it PT LEVEL 3 [facility] 2021-08-10 2021-08-10 OFFICE STLMLC STLMLC [id number] Co mmon 00:00:00 00:00:00 VISIT EST Spir it PT LEVEL 3 [facility] 2021-07-30 2021-07-30 (TEL) STLMLC STLMLC [id number] Co mmon 00:00:00 00:00:00 [facility] 2021-07-09 2021-07-09 OFFICE STLMLC STLMLC [id number] Co mmon 00:00:00 00:00:00 VISIT [facility] LEVEL 4 [facility] 2020-03-13 2020-03-13 Outpatient STLMLC STLMLC [id number] Common 00:00:00 00:00:00 [facility] 2020-02-04 2020-02-04 Outpatient STLMLC STLMLC [id number] Common 00:00:00 00:00:00 [facility] 2020-01-17 2020-01-17 Outpatient STLMLC STLMLC [id number] Common 00:00:00 00:00:00 [facility] 2020-01-07 2020-01-07 Outpatient STLMLC STLMLC [id number] Common 00:00:00 00:00:00 [facility] 2019-10-23 2019-10-23 [facility] [id number] Common 13:00:00 13:00:00 [facility] 2019-08-24 2019-08-24 [facility] [id number] Common 10:10:00 10:10:[address] [facility] 2019-05-16 2019-05-16 [facility] [id number] Common 15:00:00 15:00:[address] [facility] 2019-05-02 2019-05-02 [facility] [id number] Common 10:55:00 10:55:00 t [facility] [address] [facility] [address] [facility] 2019-04-25 2019-04-25 [facility] [id number] Common 10:07:00 10:07:00 t [facility] [address] [address] [facility] 2019-04-24 2019-04-24 [facility] [id number] Common 09:15:00 09:15:[address] [facility] 2019-04-18 2019-04-18 [facility] [id number] Common 15:15:00 15:15:00 t [facility] [address] [address] [facility] Results Test Description Test Time Test Comments Results Result Comments Source HEMOGLOBIN A1C 2021-09-10 00:00:00 Test Item Value Reference Range Interpretation Comme nts A1C (test code = 4548-4) 7.8
[2022-08-27 09:49] LABS: Absolute Lymphocytes (CBC) 2.6 K/uL (0.7-4.9); Hematocrit 32.6 % (39.6-49.0); Lymphocytes % 27.1 % (15.3-44.8); MCV 92.7 fL (80-100); RBC Red Blood Cell Count 3.51 M/uL (4.33-5.43)
[2022-08-27 09:56] LABS: Protime INR 1.05
[2022-08-27 10:06] LABS: Potassium 3.9 mEq/L (3.5-5.1)
--- NOTE | 2022-08-27 10:08 | RAD REPORT ---
EXAM DESCRIPTION: CT - Ct Stroke Brain Wo Cont - 08/27/2022 9:39 am CLINICAL HISTORY: STROKE ALERT Headache, CVA symptomology COMPARISON: Head Brain Wo Cont dated 12/12/2020 TECHNIQUE: All CT scans are performed using dose optimization technique as appropriate and may inclu de automated exposure control or mA/KV adjustment according to patient size. FINDINGS: No intracranial hemorrhage, hydrocephalus or extra-axial fluid collection.17 mm area of di minished density is seen adjacent to the frontal horn, favored to represent an old infarction. No def initive acute finding. The paranasal sinuses and mastoids are clear. The calvarium is intact. Mild aortic atherosclerosis. IMPRESSION: No acute bleed or midline shift. 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 If there is continued clinical concern for CVA, MR imaging of the brain would be recommended. The findings were discussed with Dr. Marques in the ER On 08/27/2022 at 9:44 a.m. by telephone.
[2022-08-27 10:13] LABS: Troponin High Sensitivity 108.4 pg/mL (<58.9)
--- NOTE | 2022-08-27 10:51 | RAD REPORT ---
EXAM DESCRIPTION: RAD - Chest Single View - 08/27/2022 10:35 am CLINICAL HISTORY: l sided weaknes Chest pain. COMPARISON: Chest Single View dated 10/12/2021; Chest Single View dated 10/10/2021; Chest Single View dated 10/07/2021; Chest Single View dated 12/12/2020 FINDINGS: Portable technique limits examination quality. The lungs are grossly clear. The heart is normal in size. No displaced fractures. IMPRESSION: No acute intrathoracic process suspected.
[2022-08-27] MEDS ORDERED: FOLIC ACID 1 MG TABLET ONE (10:58)
[2022-08-27] MEDS ORDERED: ASPIRIN 81 MG CHEWABLE TABLET ONE (10:58)
[2022-08-27] MEDS ORDERED: CLOPIDOGREL 75 MG TABLET ONE (10:58)
--- NOTE | 2022-08-27 11:05 | EDPHYS ---
Physician Documentation [facility] Name: Jorden Virk Age: 72 yrs Sex: Male : 1950 Arrival Date: 08/27/2022 Time: 09:20 Bed 8 Private MD: ED Physician Bayron Manzano HPI: 08/27 09:33 This 72 yrs old Male presents to ER via Ambulatory with complaints of General ms3 Weakness, Numbness - leg, Doesn't Feel Right. 09:33 Onset: The symptoms/episode began/occurred 8:15 AM. 72-year-old male with past medical ms3 history of diabetes, hyperlipidemia, hypertension presents for left upper extremity and left lower extremity weakness that began at 815. Patient states he does have mild left upper extremity pain. Patient denies alleviating or inciting factors.. Historical: - Allergies: 10:53 No Known Allergies; ll1 - PMHx: 09:33 diabetes mellitus; Hypercholesterolemia; Hypertension; ss - Immunization history:: Adult Immunizations up to date, Client reports receiving the 2nd dose of the Covid vaccine. - Social history:: Smoking status: Patient denies any tobacco usage or history of. Patient/guardian denies using alcohol. ROS: 09:33 Constitutional: Negative for fever, and chills. Neck: Negative for injury, pain, and ms3 swelling, Cardiovascular: Negative for chest pain, and palpitations. Respiratory: Negative for shortness of breath, cough, wheezing, and pleuritic chest pain, Abdomen/GI: Negative for abdominal pain, nausea, vomiting, diarrhea, and constipation. 09:33 MS/extremity: Positive for Left-sided weakness. 09:33 Neuro: Positive for weakness. 09:33 All other systems are negative. Exam: 09:33 Constitutional: This is a well developed, well nourished patient who is awake, alert, ms3 and in no acute distress. Head/Face: Normocephalic, atraumatic. Neck: Trachea midline, no cervical lymphadenopathy. Supple, full range of motion without nuchal rigidity, or vertebral point tenderness. No Meningismus. Chest/axilla: Normal chest wall appearance and motion. Nontender with no deformity. Cardiovascular: Regular rate and rhythm with a normal S1 and S2. No gallops, murmurs, or rubs. Normal PMI, no JVD. No pulse deficits. Respiratory: Lungs have equal breath sounds bilaterally, clear to auscultation and percussion. No rales, rhonchi or wheezes noted. No increased work of breathing, no retractions or nasal flaring. Abdomen/GI: Soft, non-tender, with normal bowel sounds. No distension or tympany. No guarding or rebound. No evidence of tenderness throughout. Skin: Warm, dry with normal turgor. Normal color with no rashes, no lesions, and no evidence of cellulitis. MS/ Extremity: Pulses equal, no cyanosis. 10:10 ECG was reviewed by the Attending Physician. ms3 11:07 Radiologist reports: No acute bleed or midline shift. 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 Vital Signs: 09:42 BP 143 / 73; Pulse 62; Resp 15; Temp 97.7(O); Pulse Ox 100% on R/A; Pain 0/10; ld1 10:16 BP 179 / 75; Pulse 62; Pulse Ox 99% on R/A; ll1 12:00 BP 190 / 81; Pulse 66; ph 13:05 BP 184 / 82; Pulse 65; Resp 15; Pulse Ox 99% ; ph 09:42 Pain Scale: Adult ld1 NIH Stroke Scale Scores: 09:33 NIHSS Score: 3 ms3 09:43 NIHSS Score: 0 ll1 09:54 NIHSS Score: 0 ms3 MDM: 09:29 Patient medically screened. ms3 09:33 Differential diagnosis: CVA, TIA. ms3 10:47 ED course: Discussed case with Dr Dodson. Agrees with no TNKase. ASA 81 mg, Plavix 75 ms3 mg, Folic acid 1 mg. 21:08 Data reviewed: vital signs, nurses notes, lab test result(s), EKG, radiologic studies, ms3 and as a result, I will admit patient. Consideration of Admission/Observation Patient was admitted/placed on observation. Management of patient was discussed with the following: Hospitalist: . I considered the following discharge prescriptions or medication management in the emergency department Medications were administered in the Emergency Department. See MAR. Independent interpretation of the following test(s) in the Emergency Department EKG: See my EKG interpretation above property assessment monitor:. Care significantly affected by the following chronic conditions: Diabetes, Hypertension. Counseling: I had a detailed discussion with the patient and/or guardian regarding: the historical points, exam findings, and any diagnostic results supporting the discharge/admit diagnosis, lab results, radiology results, the need for further work-up and treatment in the hospital. 08/27 09:29 Order name: Basic Metabolic Panel; Complete Time: 10:44 ms3 08/27 09:29 Order name: CBC with Diff; Complete Time: 09:58 ms3 08/27 09:29 Order name: High Sensitivity Troponin; Complete Time: 10:44 ms3 08/27 09:29 Order name: Protime (+inr); Complete Time: 09:58 ms3 08/27 09:29 Order name: Ptt, Activated; Complete Time: 09:58 ms3 08/27 09:53 Order name: Glucose, Ancillary Testing; Complete Time: 09:58 EDMS 08/27 10:32 Order name: CREATININE WHOLE BLOOD; Complete Time: 10:44 EDMS 08/27 11:39 Order name: Lipid Profile EDMS 08/27 11:39 Order name: Lipid Profile EDMS 08/27 11:39 Order name: Troponin High Sensitivity; Complete Time: 15:21 EDMS 08/27 11:49 Order name: Basic Metabolic Panel EDMS 08/27 17:06 Order name: Glucose, Ancillary Testing EDMS 08/27 09:29 Order name: CT Stroke Brain w/o Contrast; Complete Time: 10:44 ms3 08/27 11:07 Interpretation: Abnormal: Per Radiologist's finding(s): No acute bleed or midline ms3 shift. 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 08/27 09:29 Order name: Stroke CXR 1 View; Complete Time: 11:03 ms3 08/27 13:07 Order name: Brain Wo Cont; Complete Time: 15:21 EDMS 08/27 09:29 Order name: EKG; Complete Time: 09:30 ms3 08/27 11:39 Order name: NPO EDMS 08/27 11:39 Order name: NPO EDMS 08/27 09:29 Order name: Accucheck; Complete Time: 09:44 ms3 08/27 09:29 Order name: Cardiac monitoring; Complete Time: 09:44 ms3 08/27 09:29 Order name: EKG - Nurse/Tech; Complete Time: :44 ms3 08/27 09:29 Order name: IV Saline Lock; Complete Time: :44 ms3 08/27 09:29 Order name: Labs collected and sent; Complete Time: :44 ms3 08/27 09:29 Order name: NPO; Complete Time: 09:43 ms3 08/27 09:29 Order name: O2 Per Protocol; Complete Time: :43 ms3 08/27 09:29 Order name: O2 Sat Monitoring; Complete Time: :43 ms3 08/27 09:29 Order name: Stroke Swallow Screen; Complete Time: 10:59 ms3 EC:10 Rate is 60 beats/min. Rhythm is regular. QRS [place] is Normal. IA interval is normal. QRS ms3 interval is normal. Clinical impression: Normal ECG. Interpreted by me. Reviewed by me. Administered Medications: 11:01 Drug: Aspirin PO 81 mg Route: PO; ll1 16:19 Follow up: Response: No adverse reaction ll1 11:01 Drug: Clopidogrel PO 75 mg Route: PO; ll1 16:18 Follow up: Response: No adverse reaction ll1 11:01 Drug: foLIC Acid PO 1 mg Route: PO; ll1 16:18 Follow up: Response: No adverse reaction ll1 Disposition Summary: 08/27/22 11:04 Hospitalization Ordered Hospitalization Status: Inpatient Admission ms3 Provider: Ralf Oakes ms3 Location: Telemetry/MedSurg (Inpatient) ms3 Condition: Stable ms3 Problem: new ms3 Symptoms: are unchanged ms3 Bed/Room Type: [facility] Room Assignment: (08/27/22 17:11) eb Diagnosis - Cerebrovascular disease, unspecified ms3 - Elevated Troponin ms3 Forms: - Medication Reconciliation Form ms3 - SBAR form ms3 NIH Stroke Scale - NIH Stroke Score Date: 08/27/2022 Time: 09:33 Total Score = 3 10. Dysarthria (speech clarity - read or repeat words) - 0(Normal) 11. Extinction and Inattention (visual/tactile/auditory/spatial/personal) - 0(No abnormality) 1a. Level of Consciousness (LOC) - 0(Alert) 1b. Level of Consciousness (LOC) (Month \T\ Age) - 0(Both) 1c. LOC Commands (Open \T\ Closes Eyes/Matte Cutter) - 0(Both) 2. Best Gaze (Lateral Gaze Paresis) - 0(Normal) 3. Visual Field Loss - 0(No visual loss) 4. Facial Palsy - 1(Minor Paralysis) 5a. Left Arm: Motor (10-second hold) - 1(Drift) 5b. Right Arm: Motor (10-second hold) - 0(No drift) 6a. Left Leg: Motor (5-second hold - always test supine) - 1(Drift) 6b. Right Leg: Motor (5-second hold - always test supine) - 0(No drift) 7. Limb Ataxia (finger/nose \T\ heel/dudely - test with eyes open) - 0(Absent) 8. Sensory Loss (pinprick arms/legs/face) - 0(Normal) 9. Best Language: Aphasia (description/naming/reading) - 0(No aphasia) Initials: ms3 NIH Stroke Scale - NIH Stroke Score Date: 08/27/2022 Time: 09:43 Total Score = 0 10. Dysarthria (speech clarity - read or repeat words) - 0(Normal) 11. Extinction and Inattention (visual/tactile/auditory/spatial/personal) - 0(No abnormality) 1a. Level of Consciousness (LOC) - 0(Alert) 1b. Level of Consciousness (LOC) (Month \T\ Age) - 0(Both) 1c. LOC Commands (Open \T\ Closes Eyes/Matte Cutter) - 0(Both) 2. Best Gaze (Lateral Gaze Paresis) - 0(Normal) 3. Visual Field Loss - 0(No visual loss) 4. Facial Palsy - 0(Normal) 5a. Left Arm: Motor (10-second hold) - 0(No drift) 5b. Right Arm: Motor (10-second hold) - 0(No drift) 6a. Left Leg: Motor (5-second hold - always test supine) - 0(No drift) 6b. Right Leg: Motor (5-second hold - always test supine) - 0(No drift) 7. Limb Ataxia (finger/nose \T\ heel/dudley - test with eyes open) - 0(Absent) 8. Sensory Loss (pinprick arms/legs/face) - 0(Normal) 9. Best Language: Aphasia (description/naming/reading) - 0(No aphasia) Initials: ll1 NIH Stroke Scale - NIH Stroke Score Date: 08/27/2022 Time: 09:54 Total Score = 0 10. Dysarthria (speech clarity - read or repeat words) - 0(Normal) 11. Extinction and Inattention (visual/tactile/auditory/spatial/personal) - 0(No abnormality) 1a. Level of Consciousness (LOC) - 0(Alert) 1b. Level of Consciousness (LOC) (Month \T\ Age) - 0(Both) 1c. LOC Commands (Open \T\ Closes Eyes/Matte Cutter) - 0(Both) 2. Best Gaze (Lateral Gaze Paresis) - 0(Normal) 3. Visual Field Loss - 0(No visual loss) 4. Facial Palsy - 0(Normal) 5a. Left Arm: Motor (10-second hold) - 0(No drift) 5b. Right Arm: Motor (10-second hold) - 0(No drift) 6a. Left Leg: Motor (5-second hold - always test supine) - 0(No drift) 6b. Right Leg: Motor (5-second hold - always test supine) - 0(No drift) 7. Limb Ataxia (finger/nose \T\ heel/dudley - test with eyes open) - 0(Absent) 8. Sensory Loss (pinprick arms/legs/face) - 0(Normal) 9. Best Language: Aphasia (description/naming/reading) - 0(No aphasia) Initials: ms3 Signatures: Dispatcher [employer] EDMS Pastora Calix RN RN ss Botello, Elizabeth eb Lewis, Lynsay, RN RN ll1 Bayron Manzano DO DO ms3 Tonia Manzano RN RN ld1 Corrections: (The following items were deleted from the chart) 09:41 09:30 Head Angio+CT.RAD.BRZ ordered. EDMS EDMS 09:41 09:30 Neck Angio+CT.RAD.BRZ ordered. EDMS EDMS 11:07 11:07 Per Radiologist's finding(s): No acute bleed or midline shift. Area of ms3 diminished density 17 mm adjacent to the left frontal horn favored to be old/ sequela of old infarct. ms3 13:07 11:07 MR STROKE PROTOCOL+MRI.RAD.BRZ ordered. EDMS EDMS 17:11 11:04 ms3 eb
--- NOTE | 2022-08-27 11:05 | ER ---
Nurse's Notes [facility] Name: Jorden Virk Age: 72 yrs Sex: Male : 1950 Arrival Date: 08/27/2022 Time: 09:20 Bed 8 Private MD: Diagnosis: Cerebrovascular disease, unspecified;Elevated Troponin Presentation: 08/27 09:41 Chief complaint: Patient states: Right sided facial droop, right arm weakness, right ld1 leg weakness, dizziness since 0815AM. Coronavirus screen: At this time, the client does not indicate any symptoms associated with coronavirus-19. Ebola Screen: No symptoms or risks identified at this time. Initial Sepsis Screen:. Risk Assessment: Do you want to hurt yourself or someone else? Patient reports no desire to harm self or others. Onset of symptoms was August 27, 2022. 09:41 Method Of Arrival: Ambulatory ld1 09:41 Acuity: KATELIN 2 ld1 16:18 Initial Sepsis Screen: Does the patient meet any 2 criteria? No. Patient's initial ll1 sepsis screen is negative. Does the patient have a suspected source of infection? No. Patient's initial sepsis screen is negative. Triage Assessment: 09:42 General: Appears in no apparent distress. comfortable, Behavior is calm, cooperative, ld1 appropriate for age. Pain: Denies pain. EENT: No signs and/or symptoms were reported regarding the EENT system. Neuro: Level of Consciousness is awake, alert, obeys commands, Oriented to person, place, time, situation, Leasing Consultant are weak on right Weakness in right arm(s) leg(s) Gait is unsteady, Facial droop on right, Reports dizziness, weakness. Cardiovascular: Capillary refill < 3 seconds Patient's skin is warm and dry. Respiratory: Airway is patent Respiratory effort is even, unlabored. GI: No signs and/or symptoms were reported involving the gastrointestinal system. : No signs and/or symptoms were reported regarding the genitourinary system. Derm: No signs and/or symptoms reported regarding the dermatologic system. Musculoskeletal: No signs and/or symptoms reported regarding the musculoskeletal system. Historical: - Allergies: 10:53 No Known Allergies; ll1 - PMHx: 09:33 diabetes mellitus; Hypercholesterolemia; Hypertension; ss - Immunization history:: Adult Immunizations up to date, Client reports receiving the 2nd dose of the Covid vaccine. - Social history:: Smoking status: Patient denies any tobacco usage or history of. Patient/guardian denies using alcohol. Screenin:43 [facility] ED Fall Risk Assessment (Adult) Score/Fall Risk Level 0 - 2 = Low Risk ll1 Oriented to surroundings, Maintained a safe environment, Educated pt \T\ family on fall prevention, incl call for assistance when getting out of bed, Hourly rounding (assess needs \T\ fall precautionary measures) done. Abuse screen: Denies threats or abuse. Nutritional screening: No deficits noted. Tuberculosis screening: No symptoms or risk factors identified. Assessment: 09:50 Reassessment: No changes from previously documented assessment. Patient and/or family ll1 updated on plan of care and expected duration. Pain level reassessed. 11:01 Reassessment: No changes from previously documented assessment. Patient and/or family ll1 updated on plan of care and expected duration. Pain level reassessed. Patient is alert, oriented x 3, equal unlabored respirations, skin warm/dry/pink. Vital Signs: 09:42 BP 143 / 73; Pulse 62; Resp 15; Temp 97.7(O); Pulse Ox 100% on R/A; Pain 0/10; ld1 10:16 BP 179 / 75; Pulse 62; Pulse Ox 99% on R/A; ll1 12:00 BP 190 / 81; Pulse 66; ph 13:05 BP 184 / 82; Pulse 65; Resp 15; Pulse Ox 99% ; ph 09:42 Pain Scale: Adult ld1 NIH Stroke Scale Scores: 09:33 NIHSS Score: 3 ms3 09:43 NIHSS Score: 0 ll1 09:54 NIHSS Score: 0 ms3 ED Course: 09:22 Patient arrived in ED. am2 09:23 Bayron Manzano DO is Attending Physician. ms3 09:40 CT Stroke Brain w/o Contrast In Process Unspecified. EDMS 09:40 Arm band placed on Patient placed in an exam room, on a stretcher. ll1 09:40 Inserted saline lock: 22 gauge in left antecubital area, using aseptic technique. Blood ll1 collected. 09:42 Triage completed. ld1 09:44 Inserted saline lock: 22 gauge in left antecubital area, using aseptic technique. Blood ld1 collected. 09:48 Patient has correct armband on for positive identification. Placed in gown. Bed in low mm9 position. Call light in reach. Side rails up X2. Adult w/ patient. Warm blanket given. Client placed on continuous cardiac and pulse oximetry monitoring. NIBP monitoring applied. architectural representative on. Pulse ox on. NIBP on. 09:48 Initial lab(s) drawn, by ED staff, sent to lab. EKG done, by ED staff, reviewed by mm9 Bayron Manzano DO. 10:14 Notified ED physician of a critical lab result(s). Troponin 108.4. ll1 10:37 Stroke CXR 1 View In Process Unspecified. EDMS 11:01 Dejah Ruiz, JOSE is Primary Nurse. ll1 11:04 Ralf Oakes MD is Hospitalizing Provider. ms3 13:07 Brain Wo Cont In Process Unspecified. EDMS 16:18 No provider procedures requiring assistance completed. Patient admitted, IV remains in ll1 place. Administered Medications: 11:01 Drug: Aspirin PO 81 mg Route: PO; ll1 16:19 Follow up: Response: No adverse reaction ll1 11:01 Drug: Clopidogrel PO 75 mg Route: PO; ll1 16:18 Follow up: Response: No adverse reaction ll1 11:01 Drug: foLIC Acid PO 1 mg Route: PO; ll1 16:18 Follow up: Response: No adverse reaction ll1 Medication: 09:45 VIS not applicable for this client. ll1 Outcome: 11:04 Decision to Hospitalize by Provider. ms3 16:18 Admitted to ER Hold. Please see [facility] for further documentation. ll1 16:18 Condition: stable 16:18 Instructed on the need for admit. 18:30 Patient left the ED. ph NIH Stroke Scale - NIH Stroke Score Date: 08/27/2022 Time: 09:33 Total Score = 3 10. Dysarthria (speech clarity - read or repeat words) - 0(Normal) 11. Extinction and Inattention (visual/tactile/auditory/spatial/personal) - 0(No abnormality) 1a. Level of Consciousness (LOC) - 0(Alert) 1b. Level of Consciousness (LOC) (Month \T\ Age) - 0(Both) 1c. LOC Commands (Open \T\ Closes Eyes/Hot Dip Plating Supervisor) - 0(Both) 2. Best Gaze (Lateral Gaze Paresis) - 0(Normal) 3. Visual Field Loss - 0(No visual loss) 4. Facial Palsy - 1(Minor Paralysis) 5a. Left Arm: Motor (10-second hold) - 1(Drift) 5b. Right Arm: Motor (10-second hold) - 0(No drift) 6a. Left Leg: Motor (5-second hold - always test supine) - 1(Drift) 6b. Right Leg: Motor (5-second hold - always test supine) - 0(No drift) 7. Limb Ataxia (finger/nose \T\ heel/dudley - test with eyes open) - 0(Absent) 8. Sensory Loss (pinprick arms/legs/face) - 0(Normal) 9. Best Language: Aphasia (description/naming/reading) - 0(No aphasia) Initials: ms3 NIH Stroke Scale - NIH Stroke Score Date: 08/27/2022 Time: 09:43 Total Score = 0 10. Dysarthria (speech clarity - read or repeat words) - 0(Normal) 11. Extinction and Inattention (visual/tactile/auditory/spatial/personal) - 0(No abnormality) 1a. Level of Consciousness (LOC) - 0(Alert) 1b. Level of Consciousness (LOC) (Month \T\ Age) - 0(Both) 1c. LOC Commands (Open \T\ Closes Eyes/Hot Dip Plating Supervisor) - 0(Both) 2. Best Gaze (Lateral Gaze Paresis) - 0(Normal) 3. Visual Field Loss - 0(No visual loss) 4. Facial Palsy - 0(Normal) 5a. Left Arm: Motor (10-second hold) - 0(No drift) 5b. Right Arm: Motor (10-second hold) - 0(No drift) 6a. Left Leg: Motor (5-second hold - always test supine) - 0(No drift) 6b. Right Leg: Motor (5-second hold - always test supine) - 0(No drift) 7. Limb Ataxia (finger/nose \T\ heel/dudley - test with eyes open) - 0(Absent) 8. Sensory Loss (pinprick arms/legs/face) - 0(Normal) 9. Best Language: Aphasia (description/naming/reading) - 0(No aphasia) Initials: ll1 NIH Stroke Scale - NIH Stroke Score Date: 08/27/2022 Time: 09:54 Total Score = 0 10. Dysarthria (speech clarity - read or repeat words) - 0(Normal) 11. Extinction and Inattention (visual/tactile/auditory/spatial/personal) - 0(No abnormality) 1a. Level of Consciousness (LOC) - 0(Alert) 1b. Level of Consciousness (LOC) (Month \T\ Age) - 0(Both) 1c. LOC Commands (Open \T\ Closes Eyes/Hot Dip Plating Supervisor) - 0(Both) 2. Best Gaze (Lateral Gaze Paresis) - 0(Normal) 3. Visual Field Loss - 0(No visual loss) 4. Facial Palsy - 0(Normal) 5a. Left Arm: Motor (10-second hold) - 0(No drift) 5b. Right Arm: Motor (10-second hold) - 0(No drift) 6a. Left Leg: Motor (5-second hold - always test supine) - 0(No drift) 6b. Right Leg: Motor (5-second hold - always test supine) - 0(No drift) 7. Limb Ataxia (finger/nose \T\ heel/dudley - test with eyes open) - 0(Absent) 8. Sensory Loss (pinprick arms/legs/face) - 0(Normal) 9. Best Language: Aphasia (description/naming/reading) - 0(No aphasia) Initials: ms3 Signatures: Dispatcher [employer] Pastora Pearson RN Melisa Guy RN Esther Monterroso ph, am2 Dejah Ruiz RN RN ll1 Bayron Manzano DO DO ms3 Tonia Manzano RN RN ld1 Nikole Power mm9 Corrections: (The following items were deleted from the chart) 11:02 09:45 Reassessment: No changes from previously documented assessment. Patient ll1 and/or family updated on plan of care and expected duration. Pain level reassessed. ll1
--- NOTE | 2022-08-27 11:39 | P.HP ---
Certification for Inpatient Patient admitted to: Observation With expected LOS: <2 Midnights Practitioner: I am a practitioner with admitting privileges, knowledge of patient current condition, hospital course, and medical plan of care. Services: Services provided to patient in accordance with Admission requirements found in Title 42 Section 412.3 of the Code of Federal Regulations Patient History Date of Service: 08/27/22 Reason for admission: Intermittent left-sided weakness History of Present Illness: Patient is 72 years of age has been complaining of intermittent left-sided weakness associated with vomiting started about a week ago is intermittent when he has his episodes feels weak start some vomiting him again to the emergency room currently he denies any weakness no other cranial nerve deficit he is speaking fine daughter at the bedside Allergies No Known Allergies Allergy (Unverified 11/06/11 12:28) Home Medications: Amlodipine [Norvasc*] 1 tab PO DAILY 10/07/21 Atorvastatin Calcium 1 tab PO BEDTIME 10/07/21 Carvedilol [Coreg] 1 tab PO BID 10/07/21 Dulaglutide [Trulicity] 1.5 mg SQ DIRECTED 10/07/21 Insulin Glargine,Hum.rec.anlog [Lantus Solostar] 32 units SQ DAILY 10/07/21 Torsemide [Demadex*] 20 mg PO DAILY 30 Days #30 tab 10/14/21 allopurinoL [Zyloprim*] 200 mg PO DAILY 30 Days #30 tab 10/14/21 levoFLOXacin [Levaquin*] 500 mg PO Q48H 3 Days #3 tab 10/14/21 - Past Medical/Surgical History Diabetic: Yes -: Diabetes type 2insulin-dependent -: Hypertension -: Hyperlipidemia -: CKD 3 -: None Psychosocial/ Personal History: Patient lives at home with his , family - Family History Mother -: Kidney disease Father -: Heart disease - Social History Alcohol use: Yes CD- Drugs: No Caffeine use: Yes Review of Systems 10-point ROS is otherwise unremarkable Physical Examination - Vital Signs Temperature: 97 F Blood Pressure: 142/73 Pulse: 62 Respirations: 15 Pulse Ox (%): 100 - Physical Exam General: Alert, Oriented x3 HEENT: Atraumatic Neck: Supple Respiratory: Clear to auscultation bilaterally Cardiovascular: No edema, Regular rate/rhythm Gastrointestinal: Normal bowel sounds, Soft and benign Musculoskeletal: No clubbing, No swelling Integumentary: No rashes, No breakdown Neurological: Normal strength at 5/5 x4 extr, Normal tone, Sensation intact, Cranial nerves 3-12 intact - Studies Laboratory Data (last 24 hrs) 08/27/22 09:35: PT 11.5, INR 1.05, APTT 29.6 08/27/22 09:35: WBC 9.80, Hgb 11.3 L, Hct 32.6 L, Plt Count 294 08/27/22 09:35: Sodium 141, Potassium 3.9, BUN 32 H, Creatinine 2.23 H, Glucose 98 Assessment and Plan - Problems (Diagnosis) (1) Stroke Current Visit: Yes Status: Acute Plan: Patient is 72 years of age admitted with intermittent left-sided hemiparesis he does have a 17 mm possible stroke in the left frontal horn symptoms started week ago the hemiparesis is intermittent associated with vomiting and weakness back at his baseline right now no problems swallowing visual difficulties patient is Malian-speaking only daughter at the bedside his vital signs are currently stable we will admit for aspirin and Plavix MRI stroke protocol Qualifiers: Precerebral and cerebral artery: unspecified cerebral artery (2) Chronic renal failure (CRF), stage 3 (moderate) Current Visit: Yes Status: Acute Plan: History of chronic renal failure Qualifiers: Chronic kidney disease stage 3 subtype: stage 3b (GFR 30-44) Qualified Code(s): N18.32 - Chronic kidney disease, stage 3b (3) Non-STEMI (non-ST elevated myocardial infarction) Current Visit: Yes Status: Acute Plan: Patient denies any chest pain troponins are elevated Discharge Plan: Home Plan to discharge in: 48 Hours - Advance Directives Does patient have a Living Will: No Does patient have a Durable POA for Healthcare: No
--- NOTE | 2022-08-27 13:33 | RAD REPORT ---
EXAM DESCRIPTION: MRI - Brain Wo Cont - 08/27/2022 1:19 pm CLINICAL HISTORY: tia COMPARISON: Head CT August 27 2022 TECHNIQUE: Axial, sagittal, and coronal magnetic resonance images of the brain were obtained. FINDINGS: Diffusion-weighted/ADC mapping demonstrates 17 millimeter area of abnormal signal within predominantl y the left basal ganglia having the appearance of a late subacute infarction The ventricles are normal caliber. An extra-axial fluid collection is not noted. Fluid within the sinuses/mastoids is not seen IMPRESSION: 17 millimeter late subacute infarction left basal ganglia
[2022-08-27 15:52] VITALS: BMI 28.2
[2022-08-27] MEDS ORDERED: NA CHLORIDE 0.9% 1,000 ML ONE (16:04)
[2022-08-27] MEDS ORDERED: ENOXAPARIN 40 MG/0.4 ML SQ ONE (16:04)
[2022-08-27] MEDS: NA CHLORIDE 0.9% 1,000 ML IV SCH (16:11)
[2022-08-27] MEDS: ENOXAPARIN 40 MG/0.4 ML SQ SCH (16:11)
[2022-08-27] MEDS: INSULIN -REGULAR HUMAN 50 UNIT/0.5 ML ML SQ SCH ×2 (16:30→21:00)
--- NOTE | 2022-08-27 20:08 | CON ---
Date of Consultation: 08/27/2022 Reason For Consultation: Consultation called because of stroke. History Of Present Illness: Mr. Virk is a 72-year-old patient with diabetes mellitus, dysl ipidemia, hypertension who was not taking an aspirin on a regular basis. His daughters are in the ro om and provided information. For perhaps more than a week or so, he has had intermittent left-sided incoordination, numbness, and weakness, but that would resolve. However, today on 08/27/2022 around 8:15 symptoms worsened, but did not improve. He came to [facility] with an initial NIH of [address] scan showed an area of diminished density of 17 mm adjacent to the left frontal horn, whic h were favored to be an old infarct or sequelae of an old infarct. The subsequent brain MRI done fol lowing the CT scan showed the 17 mm area to be a late subacute infarction in the left basal ganglia. Given the patient's fluctuating course for more than within the window for TNKs, he did not receive TNKs. In addition, there is no evidence that he had a large vessel occlusion and was not a candidate to be transferred to [place]. He still has residual numbness and incoordination, especially in the left upper extremity. His family does report an independent history of at least perhaps 10 years of tremors bilaterally, which were activated by movement and subside with inactivity. The more intricat e the movement such as screwing in a small screw, the more the tremors. Also with activity such as e ating or writing, the tremors would worsen. They deny a family history of similar tremors, history o f head trauma with loss of consciousness or seizures. Past Medical History: As noted. Allergies: NO KNOWN DRUG ALLERGIES. Medications: Aspirin. He was not taking an aspirin regularly. In the past in 2016, he did have asp irin listed on his medication profile. He currently received 2 aspirin 160 mg daily along with Plavi x 75 mg daily and he will receive folic acid 1 mg daily. Laboratory Data: Lipid panel will be done. His workup did reveal a possibility of myocardial infarc tion with his troponin I being elevated to 108.4 at 9:35 in the morning and at 2:40 in the afternoon of 96.8, and he is being treated by the Cardiology Service. He also was found to have significant de hydration or renal insufficiency with creatinine elevated to 2.23 and GFR down to 31. His INR is nor mal. His hemoglobin is 11.3, white blood cell count normal at 9.8, and platelets normal at 294. His chest x-ray showed no acute intrathoracic processes. Family History: No tremors. Review of Systems: Tremors present for many years. No recent fevers or chills. Incoordination with left-sided symptoms , fluctuating over about a week or more. Otherwise, negative on systems review. Physical Examination: Vital Signs: Blood pressure 181/75, pulse 65, respiratory rate 18, temperature 97.5, and oxygen satu ration 100% on room air. Weight 175 pounds, height 5 feet 6 inches, and BMI 28.2. General: Mr. Virk is resting comfortably in bed. HEENT: He is normocephalic, atraumatic. Sclerae anicteric. Oropharynx is pink and moist. Neck: Supple. Chest: Clear. Heart: Regular. Extremities: No clubbing, cyanosis, or edema. Neurologic: His face appears symmetric with good excursions and smiling. Sensation in the face is e qual bilaterally. He does not have any obvious focal cranial nerve deficits. In terms of motor exam ination, there is perhaps a subtle weakness in the left compared to the right upper extremity. Incoo rdination is noted with dysmetria bilaterally. There is also an action tremor with flexion and exten anette of around 5 to 7 hertz. Tremor is aggravated by movement such as when stretching the hand fully out or coming in close to the nose and is bilateral. Lower extremity strength with slight subtle we akness on the left lower extremity compared to the right, which is around 5- on the left and 5/5 on t he right. Sensation is symmetric in both extremities. Reflexes 0 at the patellae, 0 at the heels, a nd 0 at the biceps and triceps. He has not yet ambulated. He will be ambulated with gait belt and p hysical therapist. Assessment: Mr. Virk is a 72-year-old patient with a subacute stroke of the left basal ganglia viet uring 17 mm in the setting of hypertension, dyslipidemia, and diabetes mellitus. He is also dehydrat ed and was not taking aspirin. His cardiac enzymes suggest a possible myocardial infarction and he i s being evaluated by the Cardiology Service. Plan: 1.Continue with aspirin 81 mg daily, Plavix 75 mg daily, folic acid 1 mg daily. In addition he will likely require a high-dose statin, especially if LDL is found to be greater than 70. He is dehydrat ed and has renal insufficiency and should have IV fluids to help decrease his risk of additional stro ke. 2.He should be evaluated by Physical Therapy, Speech, and Occupational Therapy to determine the leve l of need for rehabilitation. 3.After he is either discharged from hospital or goes to rehabilitation, he should follow up with Dr Jasbir Dodson in clinic within the month. He was also instructed on how to modify additional stroke ris k factors to decrease the risk of additional strokes. MAURO/DANIELA Voice ID: [id number] Report ID: [id number]
[2022-08-28] MEDS: NA CHLORIDE 0.9% 1,000 ML IV SCH (03:32)
[2022-08-28] MEDS: carvediloL 25 MG TAB PO SCH ×2 (05:38→16:54)
[2022-08-28] MEDS: INSULIN -REGULAR HUMAN 50 UNIT/0.5 ML ML SQ SCH ×4 (07:30→20:40)
[2022-08-28 07:39] LABS: Potassium 4.1 mEq/L (3.5-5.1)
[2022-08-28] MEDS: ENOXAPARIN 40 MG/0.4 ML SQ SCH (08:50)
[2022-08-28] MEDS: ASPIRIN EC 81 MG TAB PO SCH (08:50)
[2022-08-28] MEDS: CLOPIDOGREL 75 MG TABLET PO SCH (08:51)
[2022-08-28] MEDS ORDERED: DOXAZOSIN 2 MG TAB PO SCH (09:00)
--- NOTE | 2022-08-28 10:50 | CON ---
Date of Consultation: 08/28/2022 Reason For Consultation: Mildly elevated troponin. History Of Present Illness: Mr. Virk is 72. Has a history of diabetes, hypertension, and dyslipide adolfo. No previous cardiac disease as far as we know. Has significant renal insufficiency. His creat inine today was 2.23. Comes in with hypertension, left-sided weakness, was found to have a CVA, suba cute left basal ganglia. Has already been seen by Dr. Dodson. He had a troponin of 96 initially, it is now 92. No cardiac symptoms. Denied any chest pain, nausea, vomiting, diaphoresis, PND, ortho pnea, pedal edema, palpitation, or syncope. Past Medical History: As stated above and that includes diabetes, hypertension, dyslipidemia. Allergies: NONE. Review of Systems: Negative. Social History: Negative. Family History: Negative. Medications: At home include Bumex, Coreg, Cardura, Ozempic, and insulin. Physical Examination: Vital Signs: Blood pressure 190/81. HEENT: Negative. Neck: Supple with no bruit. Chest: Clear. Cardiac: Revealed a regular rate with S4 gallops. Abdomen: Benign. Extremities: Revealed no clubbing, cyanosis, or edema. Diagnostic Data: As stated earlier. Also included he has a normal echocardiogram from September 2021. Impression And Plan: 1.Elevated troponin secondary to cerebrovascular accident and demand ischemia and hypertension. 2.Renal insufficiency. 3.Subacute cerebrovascular accident and left basal ganglia. 4.Hypertension, well controlled. 5.Diabetes, well controlled. 6.Dyslipidemia, well controlled. I think we need to be more aggressive, blood pressure controlled, maybe add amlodipine. He is not a candidate for KATYA inhibitors or ARBs with his kidney. I think he should sometime down the road have an outpatient Lexiscan considering his high risk factors for coron dilan artery disease. Meanwhile, we will continue to follow him while he is in the hospital. I agree with his present regimen. Case was discussed with Dr. Oakes. DOREEN/DANIELA Voice ID: [id number] Report ID: [id number]
--- NOTE | 2022-08-28 11:22 | P.PN ---
Subjective Date of Service: 08/28/22 Chief Complaint: Intermittent left-sided weakness No acute events overnight. He reports left upper extremity weakness. He denies any headaches, chest pain, palpitations, shortness of breath, numbness/tingling, or paresthesias. Review of Systems 10-point ROS is otherwise unremarkable Neurological: Weakness (left upper extremity) Physical Examination - Vital Signs Temperature: 97.5 F Blood Pressure: 169/90 Pulse: 64 Respirations: 16 Pulse Ox (%): 96 - Physical Exam General: Alert, In no apparent distress, Oriented x3 HEENT: Atraumatic, Sclerae nonicteric Neck: JVD not distended Respiratory: Clear to auscultation bilaterally, Normal air movement Cardiovascular: No edema, Regular rate/rhythm, Normal S1 S2, No gallops, No r ubs, No murmurs Gastrointestinal: Normal bowel sounds, Soft and benign, Non-distended, No tenderness, No rebound, No guarding Musculoskeletal: No clubbing Integumentary: No rashes Neurological: Normal speech, Normal tone, Sensation intact, Cranial nerves 3-12 intact, Normal reflexes 2+, Normal affect, Other (5/5 strength in RUE, BLE. 4/5 strength in LUE.) Assessment And Plan - Plan NIH Stroke Scale 1a. Level of consciousness: 0 - Alert; keenly responsive 1b. LOC questions: 0 - Both questions right 1c. LOC commands: 0 - Performs both tasks 2. Best Gaze: 0 - Normal 3. Visual: 0 - No visual loss 4. Facial Palsy: 0 - Normal symmetry 5a. Motor left arm: 1 - Drift, but doesn't hit bed 5b. Motor right arm: 0 - No drift for 10 seconds 6a. Motor left le - No drift for 5 seconds 6b. Motor right le - No drift for 5 seconds 7. Limb ataxia: 1 - ataxia in left upper extremity 8. Sensory: 0 - Normal; no sensory loss 9. Best Language: 0 - Normal; no aphasia 10. Dysarthria: 0 - Normal 11. Extinction and Inattention: 0 - No abnormality 12. Distal motor function: 0 - No abnormality Total Score: 2 # Late Subacute Left Basal Ganglia Cerebrovascular Accident - Consulted Neurology - recommendations appreciated - Recommended aspirin, atorvastatin, folic acid, and clopidogrel - NIHSS = 2 - q4hr neurochecks - Radiology: - CT head = "no acute bleed or midline shift. 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 If there is continued clinical concern for CVA, MR imaging of the brain would be recommended" - MRI brain = "17 millimeter late subacute infarction left basal ganglia." - CT/MR angiograms deferred due to poor renal function and him being out of window for intervention - Ordered carotid ultrasound - Ordered transthoracic echocardiogram - PT/OT/CUTTER ALUMINUM SHEET requested - Risk profile: - Hgb A1c: pending - Lipid panel: TC 197, LDL 120, HDL 30, TG 234 - TSH: pending # Hypertensive Urgency - Given that his stroke is not acute, no need for permissive hypertension at this time - Resume home carvedilol, doxazosin # Type II Non-ST Segment Elevation Myocardial Infarction (Demand Ischemia) due to above # Chronic Compensated 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 Guerrero - recommendations appreciated - Continue aspirin, atorvastatin, car vedilol - Hold off on KATYA-inhibitor/ARB given renal function # KDIGO Stage I Acute Kidney Injury on Chronic Kidney Disease Stage III, improving - Consult Nephrology - recommendations appreciated - Creatinine = 2.23 -> 1.98 (baseline creatinine ~1.7) - Urinalysis = pending - Monitor creatinine and urine output - If worsening, obtain renal ultrasound - Renally dose medications # Type II Diabetes Mellitus, insulin-dependent - Continue current insulin regimen Ralf Oakes M.D.
[2022-08-28] MEDS: FOLIC ACID 1 MG TABLET PO SCH (12:35)
[2022-08-28 15:08] LABS: Specific Gravity 1.019 (1.005-1.030); Urine Bacteria <20 /HPF (<20); Urine Bilirubin NEGATIVE (Negative); Urine Blood 1+ (Negative); Urine Clarity Clear (Clear); Urine Color Light-Yellow (Yellow); Urine Glucose 3+ (Negative); Urine Mucus Slight /HPF (None Seen); Urine Protein 3+ (Negative); Urine RBC <5 /HPF (None Seen); Urine Urobilinogen Normal (Normal)
--- NOTE | 2022-08-28 15:20 | P.CNS ---
Date of Consult: 08/28/22 Reason for Consult: CKD, HTN Requesting Physician: Ralf Oakes Chief Complaint: Intermittent left-sided weakness History of Present Illness: Patient is a 72 years male who presented with reports of left-sided weakness with MRI findings of subacute left sided basal ganglia CVA. He has a hx of chronic DM, sub optimally controlled HTN with BP at home trending in the 160- 170s per his daughter and CKD under the care of Dr. Rios. Pt denies any gait or balance issues outside of the weakness reported although that too is a bit better in part now he states this afternoon. Allergies No Known Allergies Allergy (Verified 08/27/22 21:25) Home Medications: Carvedilol [Coreg] 25 mg PO BID 10/07/21 Insulin Glargine,Hum.rec.anlog [Lantus Solostar] 32 units SQ BID 10/07/21 Bumetanide 0.5 mg PO DAILY 08/27/22 Doxazosin [Cardura*] 2 mg PO BID 08/27/22 Ergocalciferol (Vitamin D2) [Vitamin D2] 1.25 mg PO SEECOM 08/27/22 Semaglutide [Ozempic] 0.25 mg SQ SEECOM 08/27/22 - Past Medical/Surgical History Diabetic: Yes -: Diabetes type 2insulin-dependent -: Hypertension -: Hyperlipidemia -: CKD 3 -: None Psychosocial/ Personal History: Patient lives at home with his , family - Family History Mother Medical History: Kidney disease Father Medical History: Heart disease - Social History Alcohol use: No CD- Drugs: No Caffeine use: Yes Review of Systems General: Weakness Eyes: Unremarkable ENT: Unremarkable Respiratory: Unremarkable Cardiovascular: As per HPI Gastrointestinal: Nausea Genitourinary: Unremarkable Musculoskeletal: As per HPI Integumentary: Unremarkable Neurological: Weakness, As per HPI Physical Examination Temp Pulse Resp BP Pulse Ox 97.5 F 64 16 169/90 H 96 08/28/22 12:05 08/28/22 12:05 08/28/22 12:05 08/28/22 12:05 08/28/22 12:05 General: Alert, Oriented x3 HEENT: Atraumatic, Normocephalic Neck: Supple Respiratory: Clear to auscultation bilaterally, Normal air movement Cardiovascular: Regular rate/rhythm Gastrointestinal: Soft and benign, Non-distended Musculoskeletal: No clubbing, No swelling Integumentary: No rashes, No breakdown Neurological: Normal speech, Normal tone, Normal affect, Other (Muscle strength left side 4/5) Conclusions/Impression: A/P) 1. Underlying CKD IIIb/IV, Cr level on clinic visit in May with Dr. Rios was ~ 2.3 mg/dl so levels on admission here in line with that or lower. 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 Accelerated HTN with hypertensive complication leading to lacunar CVA - recommend replacing the alpha mark with Ramipiril which is recommended and while he has had some hyperkalemia in the past, that can be addressed through diet and cation exchanger therapy. Will add CCB/Amlodipine. Will need to clarify home medication list as listed meds here do include some of the agents listed on his office med list. Will target BP < 140/90 for now and < 130/80 longer-tern 3. Cont risk factor modification, target LDL < 70. Target A1c of 6.1-6.9% Chalo Person MD, KWASI
[2022-08-28] MEDS: AMLODIPINE 5 MG TAB PO SCH (16:54)
--- NOTE | 2022-08-28 17:48 | RAD REPORT ---
EXAM DESCRIPTION: - CP - 08/28/2022 5:29 pm CLINICAL HISTORY: stroke eval COMPARISON: No comparisons TECHNIQUE: Real-time sonographic evaluation of both carotid systems was performed. Doppler interroga tion was performed with waveform tracing bilaterally. FINDINGS: Normal high resistance waveforms are noted in both external carotid arteries. The common c arotid arteries and internal carotid arteries show normal low resistance waveforms. Mild soft and hard plaque present at the carotid bifurcations Peak systolic and end diastolic velocit y values and the ICA/CCA ratios are in the non-hemodynamically significant range. Antegrade flow seen in both vertebral arteries. IMPRESSION: No evidence of a hemodynamically significant stenosis.
[2022-08-28] MEDS: ATORVASTATIN 40 MG TAB PO SCH (20:40)
[2022-08-28] MEDS ORDERED: HYDRALAZINE HCL 20 MG/ML VIAL IV PRN (20:41)
[2022-08-29 07:19] LABS: Thyroid Stimulating Hormone 1.36 uIU/mL (0.358-3.740)
[2022-08-29] MEDS: INSULIN -REGULAR HUMAN 50 UNIT/0.5 ML ML SQ SCH ×4 (07:30→21:00)
[2022-08-29] MEDS: ASPIRIN EC 81 MG TAB PO SCH (08:17)
[2022-08-29] MEDS: carvediloL 25 MG TAB PO SCH ×2 (08:17→21:19)
[2022-08-29] MEDS: ENOXAPARIN 40 MG/0.4 ML SQ SCH (08:18)
[2022-08-29] MEDS: AMLODIPINE 5 MG TAB PO SCH (08:18)
[2022-08-29] MEDS: FOLIC ACID 1 MG TABLET PO SCH (08:18)
[2022-08-29] MEDS: CLOPIDOGREL 75 MG TABLET PO SCH (08:19)
--- NOTE | 2022-08-29 09:49 | PN ---
Patient came in with CVA in the basal ganglia. Has a history of hypertension, diabetes, and dyslipid emia. Patient's vital signs are stable, afebrile. No cardiac issues at this point. I am comfortabl e with him going home whenever it is okay with Dr. Oakes. I will make arrangements for the patient t o have an outpatient Lexiscan. Continue present regimen for now. DOREEN/DANIELA Voice ID: [id number] Report ID: [id number]
--- NOTE | 2022-08-29 09:58 | P.PN ---
Subjective Date of Service: 08/29/22 Chief Complaint: Intermittent left-sided weakness No acute events overnight. He reports no changes in his symptoms. He worked with PT yesterday and did well. This morning, I ambulated with him and he had a slight wobble in his gait. He states that he feels unbalanced. He denies any he adaches, chest pain, palpitations, shortness of breath, numbness/tingling, or paresthesias. Review of Systems 10-point ROS is otherwise unremarkable Neurological: Weakness (LUE), Other (imbalanced with ambulation) Physical Examination - Vital Signs Temperature: 97.6 F Blood Pressure: 182/84 Pulse: 67 Respirations: 16 Pulse Ox (%): 96 Assessment And Plan - Plan - Physical Exam General: Alert, In no apparent distress, Oriented x3 HEENT: Atraumatic, Sclerae nonicteric Neck: JVD not distended Respiratory: Clear to auscultation bilaterally, Normal air movement Cardiovascular: No edema, Regular rate/rhythm, No murmurs Gastrointestinal: Normal bowel sounds, Soft, Non-distended, No tenderness Musculoskeletal: No clubbing Integumentary: No rashes Neurological: Normal speech, Normal tone, Sensation intact, Cranial nerves 3-12 intact, Normal reflexes 2+, Normal affect, Other (5/5 strength in RUE, BLE. 4/5 strength in LUE.) NIH Stroke Scale 1a. Level of consciousness: 0 - Alert; keenly responsive 1b. LOC questions: 0 - Both questions right 1c. LOC commands: 0 - Performs both tasks 2. Best Gaze: 0 - Normal 3. Visual: 0 - No visual loss 4. Facial Palsy: 0 - Normal symmetry 5a. Motor left arm: 0 - No drift for 10 seconds 5b. Motor right arm: 0 - No drift for 10 seconds 6a. Motor left le - No drift for 5 seconds 6b. Motor right le - No drift for 5 seconds 7. Limb ataxia: 1 - ataxia in left upper extremity 8. Sensory: 0 - Normal; no sensory loss 9. Best Language: 0 - Normal; no aphasia 10. Dysarthria: 0 - Normal 11. Extinction and Inattention: 0 - No abnormality 12. 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 - Would benefit from continued PT services at discharge given gait imbalance - Risk profile: - Hgb A1c: pending - Lipid panel: TC 197, LDL 120, HDL 30, TG 234 - TSH: 1.36 # Hypertensive Urgency - Given that his stroke is not acute, no need for permissive hypertension at this time - Resume home carvedilol, doxazosin # Type II Non-ST Segment Elevation Myocardial Infarction (Demand Ischemia) due to above # Chronic Compensated 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 Guerrero - recommendations appreciated - Continue aspirin, atorvastatin, car vedilol - Hold off on KATYA-inhibitor/ARB given renal function # KDIGO Stage I Acute Kidney Injury on Chronic Kidney Disease Stage III, improving - Consult Nephrology - recommendations appreciated - Creatinine = 2.23 -> 1.98 -> 1.96 (baseline creatinine ~1.7) - Urinalysis = 3+ glucose, 3+ protein - Monitor creatinine and urine output - If worsening, obtain renal ultrasound - Renally dose medications # Type II Diabetes Mellitus, insulin-dependent - Continue current insulin regimen Ralf Oakes M.D.
[2022-08-29] MEDS: ATORVASTATIN 40 MG TAB PO SCH (21:19)
[2022-08-30 04:35] LABS: Potassium 3.9 mEq/L (3.5-5.1)
[2022-08-30] MEDS: INSULIN -REGULAR HUMAN 50 UNIT/0.5 ML ML SQ SCH ×2 (07:30→11:30)
[2022-08-30] MEDS: ENOXAPARIN 40 MG/0.4 ML SQ SCH (09:04)
[2022-08-30] MEDS: ASPIRIN EC 81 MG TAB PO SCH (09:05)
[2022-08-30] MEDS: FOLIC ACID 1 MG TABLET PO SCH (09:05)
[2022-08-30] MEDS: carvediloL 25 MG TAB PO SCH (09:05)
[2022-08-30] MEDS: CLOPIDOGREL 75 MG TABLET PO SCH (09:05)
[2022-08-30] MEDS: AMLODIPINE 5 MG TAB PO SCH (09:06)
[2022-08-30 09:27] VITALS: O2SAT 96
--- NOTE | 2022-08-30 10:50 | P.PN ---
Nephrology note (S) Pt reports doing fair, left sided strength stable, BP regimen/changes discussed (O) Vitals reviewed in the EMR General: Alert, Oriented x3 HEENT: Atraumatic, Normocephalic Neck: Supple Respiratory: Clear to auscultation bilaterally, Normal air movement Cardiovascular: Regular rate/rhythm Gastrointestinal: Soft and benign, Non-distended Musculoskeletal: No clubbing, No swelling Integumentary: No rashes, No breakdown Neurological: Normal speech, Normal tone, Normal affect, Other (Muscle strength left side 4/5) Conclusions/Impression: A/P) 1. Underlying CKD IIIb/IV, Cr level on clinic visit in May with Dr. Rios was ~ 2.3 mg/dl so levels on admission here in line with that or lower. 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 Did also add CCB/Amlodipine. Will need to clarify home medication list as listed meds here do include some of the agents listed on his office med list. Will target BP < 140/90 for now and < 130/80 longer-tern 3. Cont risk factor modification, target LDL < 70. Target A1c of 6.1-6.9% Chalo Person MD, KWASI
--- NOTE | 2022-08-30 12:11 | EKG ---
Test Date: 2022-08-27 Test Time: 09:45:15 Quality Review Trainer: DANI MEASUREMENT RESULTS: Intervals: Rate: 60 WI: 156 QRSD: 94 QT: 446 QTc: 446 [place]: P: 25 WI: 156 QRS: 26 T: 76 INTERPRETIVE STATEMENTS: Normal sinus rhythm Normal ECG Compared to ECG 10/07/2021 16:09:38 No significant changes Electronically Signed On 08-30-22 12:01:44 CDT by Camilo Guerrero
[2022-08-30 12:35] VITALS: BP 154/72; TEMP 97.3
[2022-09-07] MEDS ORDERED: DRISDOL (VITAMIN D=ERGOCALCIFEROL) 50000 UNIT CAP PO SCH (09:00)
== END 2022-08-30 14:30 | disposition home or self-care (01) | DRG 65 ==
LOC: ER 09:20 → ERHOLD 14:56 → 2ND 18:21
PROVIDERS: ADMIT Internal Medicine; ATTEND Hospitalist
DX: I63.9 Cerebral infarction, unspecified (principal); G81.94 Hemiplegia, unspecified affecting left nondominant side; I24.8 Other forms of acute ischemic heart disease; I50.32 Chronic diastolic (congestive) heart failure; I13.0 Hypertensive heart and chronic kidney disease with heart failure and stage 1 through stage 4 chronic kidney disease, or unspecified chronic kidney disease; N17.9 Acute kidney failure, unspecified; N18.4 Chronic kidney disease, stage 4 (severe); E11.22 Type 2 diabetes mellitus with diabetic chronic kidney disease; I16.0 Hypertensive urgency; E78.00 Pure hypercholesterolemia, unspecified; R77.8 Other specified abnormalities of plasma proteins; R29.703 NIHSS score 3; Z79.4 Long term (current) use of insulin; Z79.02 Long term (current) use of antithrombotics/antiplatelets
CPT/HCPCS: 36415; 70450; 70551; 71045; 80048; 80061; 81001; 82565; 82947; 83036; 84443; 84484; 85025; 85610; 85730; 92523; 93005; 93880; 97116; 97162; 97166; 97530; 99285; J0360; J1650; J1815; J7030